=== PATIENT | male | born 1945 | race Caucasian/White ===

== ENCOUNTER 2020-09-07 08:12 | Emergency (ER) | payer MEDICARE, OTHER, SELFPAY ==
[2020-09-07 08:18] VITALS: BP 157/123; PULSE 91; RESP 16; TEMP 36.7; O2SAT 97; BMI 24.3
--- NOTE | 2020-09-07 08:20 | XR_ITS ---
WS: [id number] Portable AP upright chest, 09/07/2020 Clinical Data: dyspnea/cough Comparison: Portable chest, 09/30/2017. Findings: There is elevation of the right diaphragm with small surgical cristi above the lateral asp ect of the right diaphragm. The left lung is fully expanded. There are calcified granulomas in both h dixie. Diaphragms are flattened. The heart is normal. The aortic arch and descending aorta are tortuous . No nodules, masses or effusions are seen. No pneumonia or pneumothorax is present. Monitor leads ar e on the chest wall. XR/XR chest 1V portable [id number] Impression: 1. Old granulomatous disease. 2. Hyperinflation. 3. Elevation of right diaphragm with postoperative changes which remain the sandra e. 4. Atherosclerosis.
[2020-09-07 08:22] VITALS: BP 171/122; PULSE 84; RESP 18; O2SAT 98
[2020-09-07 08:28] VITALS: BP 186/112; PULSE 79; RESP 23; O2SAT 96
--- NOTE | 2020-09-07 08:32 | W.ED.CHESTPA ---
HPI - Chest Pain General: Chief Complaint: Chest Pain Stated Complaint: chest pressure Time Seen by Provider: 09/07/20 08:19 History of Present Illness: HPI narrative: 74-year-old male comes in complaining of chest discomfort that began this morning around 7 AM. He states he did not sleep well all night was uncomfortable but did not have any specific chest heaviness or aching this morning he started having that around 7:00. Pain does not radiate into the neck back or arms or shoulder. He has not had any dysuria urgency or frequency no abdominal pain no nausea vomiting or diarrhea. He denies any reflux. MD complaint: chest heaviness Onset (ago): hour(s) Timing of current episode: episodic and still present Onset: during rest Pain location: left chest Pain radiation: none Severity: moderate Quality: heaviness Relieving factors: nothing Exacerbating factors: nothing Associated symptoms: Deny abdominal pain, diaphoresis, dyspnea, fever(s), leg edema, nausea, palpitations, sense of impending doom, syncope or vomiting Treatment prior to arrival: aspirin (81mg) Review of Systems Const: Denies: fever(s) or diaphoresis ENMT: Denies: throat pain, ear or mastoid pain, nasal discharge or nasal congestion Card: Denies: palpitations or syncope Resp: Denies: dyspnea GI: Denies: abdominal pain, nausea or vomiting : Denies: flank pain, dysuria, urinary frequency or urinary urgency Skin/Breast: Denies: rash or pruritus FORMERLY [facility], 1928–1983 ED PFSH: Medical History (Updated 09/07/20 @ 10:46 by Dandre Rosales DO) HTN (hypertension) Social History (Updated 09/07/20 @ 08:22 by Jamir Lopez RN) Smoking and tobacco status: never smoked Alcohol intake: never Physical Exam Const: COMMON NORMALS: no acute distress GENERAL APPEARANCE: cooperative and comfortable ORIENTATION/CONSCIOUSNESS: Yes awake, Yes oriented to person, Yes oriented to place and Yes oriented to time HENMT: COMMON NORMALS: normocephalic, atraumatic and hearing grossly normal bilaterally HEAD & SCALP: normocephalic and atraumatic Neck/C-Spine: COMMON NORMALS: no JVD Resp: COMMON NORMALS: normal respiratory effort, No retractions, No use of accessory muscles and clear to auscultation bilaterally AUSCULTATION: clear to auscultation bilaterally Cardio: COMMON NORMALS: no JVD, regular rate, regular rhythm and No murmurs present (Cardio) RATE: regular rate RHYTHM: regular rhythm GI: COMMON NORMALS: Soft to palpation and No hepatosplenomegaly present AUSCULTATION: Yes normoactive bowel sounds PALPATION: Yes Soft to palpation, No Tenderness to palpation present (GI), No Guarding due to palpation present (GI) and Yes No hepatosplenomegaly present Extremity: COMMON NORMALS: normal to inspection, capillary refill normal, no clubbing, cyanosis or edema, no calf tenderness and no pedal edema Neuro: SENSORIUM/ORIENTATION: Yes oriented to person, Yes oriented to place and Yes oriented to time Skin: COMMON NORMALS: no rashes or lesions noted GENERAL SKIN EXAM: no rashes or lesions noted Course Vital Signs: Vital signs: Vital Signs Temperature 98.7 F 09/07/20 11:05 Pulse Rate 78 09/07/20 11:05 Respiratory Rate 18 09/07/20 11:05 Blood Pressure 159/83 09/07/20 11:05 Pulse Oximetry 97 09/07/20 11:05 MDM - Chest Pain MDM Narrative: Medical decision making narrative: No further chest discomfort blood pressure improved after hydralazine. Will discharge home on amlodipine and lisinopril continue aspirin daily gave sublingual nitro to use as needed he should stop the losartan and follow-up with his primary care doctor within the next week for recheck on blood pressure. Lab Data: Labs: Lab Results 09/07/20 09/07/20 09/07/20 Range/Units 08:30 08:30 08:30 WBC 5.4 (4.0-10.0) 10^3/ uL RBC 5.15 (4.1-5.3) 10^6/u L Hgb 15.9 (11.7-16.6) g/dL Hct 45.9 (42.0-52.0) % MCV 89.1 (80-94) fL MCH 30.9 (28.0-34.0) pg MCHC 34.6 (30.0-36.0) g/dL RDW 12.1 (12.1-15.1) % Plt Count 175 (130-400) 10^3/c mm MPV 10.1 (7.4-10.4) fL Neut % (Auto) 65.3 % Lymph % (Auto) 19.3 % [place] % (Auto) 10.2 % Eos % (Auto) 3.9 % Baso % (Auto) 0.9 % Neut # (Auto) 3.52 (1.8-7.7) 10^3/u L Lymph # (Auto) 1.0 (0.8-4.8) 10^3/u L [place] # (Auto) 0.6 (0.2-0.9) 10^3/u L Eos # (Auto) 0.2 (0.0-0.8) 10^3/u L Baso # (Auto) 0.1 (0.0-0.1) 10^3/u L Nucleated RBC % (a uto) 0 % Nucleated RBCs # 0.0 /100WBC Sodium 137 (136-145) mmol/L Potassium 3.9 (3.5-5.1) mmol/L Chloride 102 (98-107) mmol/L Carbon Dioxide 26 (22-29) mmol/L Anion Gap 12.9 (5-19) BUN 17 (8-23) mg/dL Creatinine 0.8 (0.7-1.2) mg/dL GFR Calculation Not Reportable Glucose 123 H (65-115) mg/dL Calculated Osmolal ity 287 (285-295) mOsm/k g Calcium 9.9 (8.5-10.5) mg/dL Total Bilirubin 0.8 (0.15-1.2) mg/dL AST 28 (0-40) U/L ALT 18 (0-41) U/L Alkaline Phosphata se 77 (40-130) IU/L Troponin T Baselin e 16 H (0-15) ng/L Troponin T 120 Min [place] (0-15) ng/L Delta Troponin T (0-10) ABS# Total Protein 7.1 (6.6-8.7) g/dL Albumin 4.5 (3.5-5.2) g/dL Globulin 2.6 (1.3-4.6) g/dL Urine Color (Yellow) Urine Appearance (CLEAR) Urine pH (5-7) Ur Specific Gravit y (1.005-1.030) Urine Protein (Negative) Urine Glucose (UA) (Normal) Urine Ketones (Negative) Urine Blood (Negative) Urine Nitrate (Negative) Urine Bilirubin (Negative) Urine Urobilinogen (Negative) mg/dL Ur Leukocyte Patricia ase (Negative) Urine RBC (0-2) /hpf Urine WBC (0-5) /hpf Ur Squamous Epith Cells (0-5) /hpf Amorphous Sediment Urine Bacteria (NONE) /hpf Urine Mucus /hpf 09/07/20 09/07/20 Range/Units 08:56 10:13 WBC (4.0-10.0) 10^3/ uL RBC (4.1-5.3) 10^6/u L Hgb (11.7-16.6) g/dL Hct (42.0-52.0) % MCV (80-94) fL MCH (28.0-34.0) pg MCHC (30.0-36.0) g/dL RDW (12.1-15.1) % Plt Count (130-400) 10^3/c mm MPV (7.4-10.4) fL Neut % (Auto) % Lymph % (Auto) % [place] % (Auto) % Eos % (Auto) % Baso % (Auto) % Neut # (Auto) (1.8-7.7) 10^3/u L Lymph # (Auto) (0.8-4.8) 10^3/u L [place] # (Auto) (0.2-0.9) 10^3/u L Eos # (Auto) (0.0-0.8) 10^3/u L Baso # (Auto) (0.0-0.1) 10^3/u L Nucleated RBC % (a uto) % Nucleated RBCs # /100WBC Sodium (136-145) mmol/L Potassium (3.5-5.1) mmol/L Chloride (98-107) mmol/L Carbon Dioxide (22-29) mmol/L Anion Gap (5-19) BUN (8-23) mg/dL Creatinine (0.7-1.2) mg/dL GFR Calculation Glucose (65-115) mg/dL Calculated Osmolal ity (285-295) mOsm/k g Calcium (8.5-10.5) mg/dL Total Bilirubin (0.15-1.2) mg/dL AST (0-40) U/L ALT (0-41) U/L Alkaline Phosphata se (40-130) IU/L Troponin T Baselin e (0-15) ng/L Troponin T 120 Min [place] 13.57 (0-15) ng/L Delta Troponin T -2.43 L (0-10) ABS# Total Protein (6.6-8.7) g/dL Albumin (3.5-5.2) g/dL Globulin (1.3-4.6) g/dL Urine Color Yellow (Yellow) Urine Appearance Clear (CLEAR) Urine pH 5.0 (5-7) Ur Specific Gravit y 1.020 (1.005-1.030) Urine Protein Neg (Negative) Urine Glucose (UA) Norm (Normal) Urine Ketones Negative (Negative) Urine Blood Trace H (Negative) Urine Nitrate Negative (Negative) Urine Bilirubin Neg (Negative) Urine Urobilinogen Norm (Negative) mg/dL Ur Leukocyte Patricia ase Negative (Negative) Urine RBC 0-4 H (0-2) /hpf Urine WBC None (0-5) /hpf Ur Squamous Epith Cells 0-4 H (0-5) /hpf Amorphous Sediment Not Reportable Urine Bacteria Trace (NONE) /hpf Urine Mucus 1+ /hpf Discharge Plan Discharge Patient Disposition: Home Clinical Impression: Atypical chest pain, HTN (hypertension) Condition: Stable Prescriptions: New amlodipine 5 mg tablet 5 mg PO DAILY Qty: 30 RF: 0 lisinopril 10 mg tablet 10 mg PO DAILY Qty: 30 RF: 0 aspirin 81 mg tablet,delayed release (DR/EC) 81 mg PO DAILY Qty: 30 RF: 0 nitroglycerin 0.4 mg tablet, sublingual 0.4 mg sublingual Q5M PRN (Reason: chest pain) Qty: 30 RF: 0 Discontinued losartan 50 mg tablet 50 mg PO DAILY@08 RF: 0 No Action atorvastatin 40 mg tablet 40 mg PO BEDTIME@2100 RF: 0 pantoprazole 40 mg tablet,delayed release (DR/EC) 40 mg PO DAILY@08 RF: 0 Discharge Orders: Discharge ED (Routine); Ordered 09/07/20 Ordered By: Dandre Rosales Referrals: Gordo Bradley DO [Primary Care Provider] - Discharge Diet: Usual diet Discharge Activity: Limit activity as instructed Patient Instructions: Opioid Safety Activity Restrictions/Additional Instructions: Case management will call with an appointment for a Lexiscan sestamibi stress test. Start on blood pressure medications as above as well as baby aspirin daily. If you have worsening symptoms return. Coding Level of Care Code ED Stroboroma Operator for Ioana Fwd Exam Comprehensive
[2020-09-07 08:42] LABS: Basophils # 0.1 10^3/uL (0.0-0.1); Basophils % 0.9 %; Eosinophils # 0.2 10^3/uL (0.0-0.8); Eosinophils % 3.9 %; Hematocrit 45.9 % (42.0-52.0); Hemoglobin 15.9 g/dL (11.7-16.6); Lymphocytes % 19.3 %; Mean Corpuscular HGB Conc 34.6 g/dL (30.0-36.0); Mean Corpuscular Hemoglobin 30.9 pg (28.0-34.0); Mean Corpuscular Volume 89.1 fL (80-94); Mean Platelet Volume 10.1 fL (7.4-10.4); Monocytes # 0.6 10^3/uL (0.2-0.9); Monocytes % 10.2 %; Neutrophils # 3.52 10^3/uL (1.8-7.7); Neutrophils % 65.3 %; Nucleated Red Blood Cells % 0 %; Platelet Count 175 10^3/cmm (130-400); Red Blood Count 5.15 10^6/uL (4.1-5.3); Red Cell Distribution Width 12.1 % (12.1-15.1); White Blood Count 5.4 10^3/uL (4.0-10.0)
[2020-09-07 09:02] LABS: Alanine Aminotransferase 18 U/L (0-41); Albumin Level 4.5 g/dL (3.5-5.2); Alkaline Phosphatase 77 IU/L (40-130); Anion Gap 12.9 (5-19); Aspartate Amino Transferase 28 U/L (0-40); Blood Urea Nitrogen 17 mg/dL (8-23); Calcium 9.9 mg/dL (8.5-10.5); Carbon Dioxide 26 mmol/L (22-29); Chloride 102 mmol/L (98-107); Globulin 2.6 g/dL (1.3-4.6); Glucose 123 mg/dL (65-115); Osmolality Calculated 287 mOsm/kg (285-295); Potassium 3.9 mmol/L (3.5-5.1); Sodium 137 mmol/L (136-145); Total Bilirubin 0.8 mg/dL (0.15-1.2); Total Protein 7.1 g/dL (6.6-8.7)
[2020-09-07 09:03] LABS: Troponin(5th) Baseline 16 ng/L (0-15)
[2020-09-07 09:04] LABS: Add Urine Culture? No; Add Urine Microscopic? YES; Bacteria Urine TRACE /hpf; Bilirubin Urine Neg (Negative); Blood Urine Trace (Negative); Glucose Urine UA Norm (Normal); Ketones Urine Negative (Negative); Leukocyte Esterase Urine Negative (Negative); Mucus Urine 1+ /hpf; Nitrate Urine Negative (Negative); Protein Urine Neg (Negative); RBC Urine 0-4 /hpf (0-2); Squamous Epithelial Cell Urine 0-4 /hpf (0-5); Urine Appearance Clear (CLEAR); Urine Color Yellow (Yellow); Urobilinogen Urine Norm (Negative)
--- NOTE | 2020-09-07 10:20 | ECG_ITS ---
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 Measurements Intervals Moran Rate: 65 P: 118 HI: 171 QRS: 44 QRSD: 93 T: 99 QT: 421 QTc: 438 Interpretive Statements SINUS RHYTHM POSSIBLE LEFT ATRIAL ENLARGEMENT [-0.1mV P WAVE IN V1/V2] POSSIBLE RIGHT VENTRICULAR CONDUCTION DELAY [RSR (QR) IN V1/V2] POSSIBLE LEFT VENTRICULAR HYPERTROPHY [VOLTAGE CRITERIA PLUS LAE OR QRS WIDENING] Compared to ECG 09/07/2020 08:20:41 Ventricular premature complex(es) no longer present Electronically Signed On 09-07-2020 11:46:46 MANAGED SERVICES CONSULTANT by Olivia Alvarado M.D. [id number]
[2020-09-07 10:36] LABS: Troponin 5 2HR 13.57 ng/L (0-15); Troponin 5 2HR Delta -2.43 ABS# (0-10)
[2020-09-07 10:49] VITALS: BP 183/93; PULSE 66; RESP 18; O2SAT 96
[2020-09-07] MEDS: hyDRALAzine 20 mg/mL INJ 1 mL 10 MG IVP (10:51)
[2020-09-07 11:05] VITALS: BP 159/83; PULSE 78; RESP 18; TEMP 37.1; O2SAT 97
--- NOTE | 2020-09-07 14:20 | ECG_ITS ---
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 Measurements Intervals [place] Rate: 82 P: 57 SD: 189 QRS: 24 QRSD: 90 T: 59 QT: 356 QTc: 418 Interpretive Statements SINUS RHYTHM WITH OCCASIONAL VENTRICULAR PREMATURE COMPLEXES POSSIBLE LEFT ATRIAL ENLARGEMENT [-0.1mV P WAVE IN V1/V2] POSSIBLE LEFT VENTRICULAR HYPERTROPHY [VOLTAGE CRITERIA PLUS LAE OR QRS WIDENING] Compared to ECG 09/30/2017 22:45:18 Ventricular premature complex(es) now present Electronically Signed On 09-07-2020 11:49:23 NAILHEAD PUNCHER by Olivia Alvarado M.D. [id number]
== END 2020-09-07 11:08 | disposition home or self-care (01) ==
PROVIDERS: Emergency Provider Family Medicine; PCP Internal Medicine
DX: R07.9 Chest pain, unspecified (principal); I10 Essential (primary) hypertension; Z79.82 Long term (current) use of aspirin
CPT/HCPCS: 12345; 36415; 71045; 80053; 81001; 83690; 84484; 85025; 87426; 87804; 93005; 96361; 96374; 96375; 99282; 99283; 99284; J0360; J1200; J2405; J7030

== ENCOUNTER 2020-09-07 19:06 | Emergency (ER) | payer MEDICARE, OTHER, SELFPAY ==
[2020-09-07 19:16] VITALS: BP 163/112; PULSE 104; RESP 18; TEMP 36.5; O2SAT 96; BMI 23.6
[2020-09-07 19:56] LABS: Basophils % 0.4 %; Eosinophils % 0.1 %; Hematocrit 44.1 % (42.0-52.0); Hemoglobin 15.7 g/dL (11.7-16.6); Lymphocytes # 0.5 10^3/uL (0.8-4.8); Mean Corpuscular HGB Conc 35.6 g/dL (30.0-36.0); Mean Corpuscular Hemoglobin 31.4 pg (28.0-34.0); Mean Corpuscular Volume 88.2 fL (80-94); Mean Platelet Volume 9.8 fL (7.4-10.4); Monocytes # 0.4 10^3/uL (0.2-0.9); Monocytes % 5.2 %; Neutrophils # 5.78 10^3/uL (1.8-7.7); Nucleated Red Blood Cells % 0 %; Platelet Count 164 10^3/cmm (130-400); Red Cell Distribution Width 12.1 % (12.1-15.1); White Blood Count 6.7 10^3/uL (4.0-10.0)
[2020-09-07] MEDS: ondansetron 2 mg/ML SDV 2 mL 4 MG IVP (20:04)
[2020-09-07] MEDS: diphenhydrAMINE 50 mg/mL SDV 1mL 25 MG IVP (20:04)
[2020-09-07] MEDS: cloNIDine 0.1 mg Tablet 0.2 MG PO (20:05)
[2020-09-07] MEDS: sodium chloride 0.9% 1,000 ML 999 ML IV (20:06)
[2020-09-07 20:13] LABS: Alanine Aminotransferase 20 U/L (0-41); Albumin Level 4.4 g/dL (3.5-5.2); Alkaline Phosphatase 72 IU/L (40-130); Anion Gap 15.8 (5-19); Aspartate Amino Transferase 28 U/L (0-40); Blood Urea Nitrogen 15 mg/dL (8-23); Calcium 9.6 mg/dL (8.5-10.5); Carbon Dioxide 22 mmol/L (22-29); Chloride 101 mmol/L (98-107); Creatinine Clr Calc Pharmacy 81.8698; Globulin 2.7 g/dL (1.3-4.6); Glucose 135 mg/dL (65-115); Lipase 24 U/L (13-60); Osmolality Calculated 283 mOsm/kg (285-295); Potassium 3.8 mmol/L (3.5-5.1); Sodium 135 mmol/L (136-145); Total Bilirubin 0.9 mg/dL (0.15-1.2); Total Protein 7.1 g/dL (6.6-8.7)
[2020-09-07 20:15] LABS: Troponin(5th) Baseline 12 ng/L (0-15)
--- NOTE | 2020-09-07 20:15 | ED_ITS ---
HPI - Nausea/Vomiting/Diarrhea General: Chief complaint: Nausea/Vomiting/Diarrhea Stated complaint: n/v/hIGH BP Time Seen by Provider: 09/07/20 19:20 History of Present Illness: HPI Narrative: The patient is a 74-year-old male who came to the ER this morning complaining of chest pain. He was given blood pressure medicines and discharged home. He says when he got home he did not have much chest pain but continued to have a headache and felt nauseous and vo mited at home. 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 He still complains of elevated blood pressure and comes to the ER at 163/112 with a pulse rate of 104. He vomited just prior to coming in he says he ate cream of wheat and it was likely those contents. He continues to have heada jossy and feels generally weak. MD elicited complaint: nausea and vomiting Description of vomiting: food contents Associated nausea: Yes Location of pain: None Pain consistency: intermittent Severity: moderate Exacerbating factors: eating and vomiting Relieving factors: none Associated symtoms: Reports fatigue, headache(s), anorexia, malaise, nausea and weakness; Denies anxiety, change in vision, chest pain, dizziness, fevers/chills, myalgias or palpitations Review of Systems General: Reports: 10 or more systems reviewed and unremarkable except in HPI and below Const: Reports: fatigue and malaise Eyes: Denies: change in vision, blurry vision or eye redness ENMT: Denies: throat pain, swelling of lips/tongue, ear or mastoid pain or nasal congestion Card: Denies: chest pain, palpitations, irregular heart rhythm, edema, dyspnea on exertion or orthopnea Resp: Denies: dyspnea, productive cough or non-productive cough GI: Reports: nausea and vomiting; Denies: abdominal pain, diarrhea or GI cramping : Denies: flank pain, urinary frequency or urinary urgency Musc: Denies: neck pain, back pain, extremity pain, joint pain, joint redness, limited range of motion or muscle weakness Skin/Breast: Denies: rash, pruritus, erythema, skin pain or skin tenderness Neuro: Reports: headache(s); Denies: numbness in extremities, weakness in extremities, sensory changes, difficulty walking, dizziness, confusion or Slurred speech present Psych: Denies: anxiety or depression Endo: Denies: polyuria All/Imm: Denies: urticaria, throat swelling or tongue swelling PFSH ED PFSH: Medical History (Updated 09/07/20 @ 21:34 by Srini Jordan MD) HTN (hypertension) Social History (Updated 09/07/20 @ 08:22 by Jamir Lopez RN) Smoking and tobacco status: never smoked Alcohol intake: never Physical Exam Const: COMMON NORMALS: no acute distress, average body habitus, patient oriented x3, no limitations, healthy appearing, alert and well nourished GENERAL APPEARANCE: cooperative, comfortable, well kempt and well developed ORIENTATION/CONSCIOUSNESS: Yes awake, Yes oriented to person, Yes oriented to place and Yes oriented to time HENMT: COMMON NORMALS: normocephalic, external ears normal and Normal external nose present HEAD & SCALP: normal to inspection and normocephalic NOSE: Normal external nose present EXTERNAL EAR: Yes external ears normal MOUTH: Normal oral and palatal mucosa present THROAT: posterior oropharynx normal Eye: COMMON NORMALS: Equal, round and reactive pupils present and EOMs intact bilaterally GENERAL EYE: appearance normal, both eyes and all related structures PUPIL: Yes Equal, round and reactive pupils present Neck/C-Spine: COMMON NORMALS: full ROM, no lymphadenopathy, no meningeal signs and no JVD GENERAL: Yes normal visual inspection Lymph: LYMPHATIC: no lymphadenopathy noted Chest: COMMONS NORMALS: normal inspection of the chest and normal palpation of entire chest wall Resp: COMMON NORMALS: normal respiratory effort, No retractions, No use of accessory muscles, clear to auscultation bilaterally and percussion normal EFFORT & INSPECTION: Yes able to speak in complete sentences AUSCULTATION: clear to auscultation bilaterally PERCUSSION: percussion normal Cardio: COMMON NORMALS: no JVD, regular rate, regular rhythm, S1 normal heart sound present, S2 normal heart sound present and Peripheral pulses 2+ throughout RATE: regular rate RHYTHM: regular rhythm HEART SOUNDS: S1 normal heart sound present and S2 normal heart sound present PERIPHERAL PULSES: Peripheral pulses 2+ throughout GI: COMMON NORMALS: Normal to inspection, nondistended, normoactive bowel sounds present, Soft to palpation, non-tender and no masses INSPECTION: Yes normal to inspection PALPATION: Yes Soft to palpation : COMMON NORMALS: Yes no CVA tenderness BLADDER/KIDNEY EXAM: Yes no CVA tenderness Back/Pelvis: COMMON NORMALS: no CVA tenderness, thoracic and lumbar spine normal to inspection, no thoracic nor lumbar tenderness and thoraco-lumbar ROM normal Extremity: COMMON NORMALS: normal to inspection, full ROM, capillary refill normal, no joint enlargement and no pedal edema GENERAL: Yes normal exam except as noted Neuro: COMMON NORMALS: patient oriented x3, CN's II-XII intact bilaterally, moves all extremities, no focal motor deficits, no sensory deficits noted and gait normal SENSORIUM/ORIENTATION: Yes alert, Yes oriented to person, Yes oriented to place and Yes oriented to time MENINGEAL SIGNS: Yes no meningeal signs Psych: COMMON NORMALS: mental status grossly normal, Normal thought process present, cooperative, normal affect and speech normal APPEARANCE: Yes well kempt ATTITUDE: Yes calm SPEECH: Yes normal speech THOUGHT PROCESS: Normal thought process present Skin: COMMON NORMALS: no rashes or lesions noted GENERAL SKIN EXAM: no rashes or lesions noted Course Vital Signs: Vital signs: Vital Signs Temperature 97.7 F 09/07/20 19:16 Pulse Rate 104 H 09/07/20 19:16 Respiratory Rate 18 09/07/20 19:16 Blood Pressure 163/112 09/07/20 19:16 Pulse Oximetry 96 09/07/20 19:16 MDM - Nausea/Vomiting/Diarrhea MDM Narrative: Medical decision making narrative: The patient came to the ER feeling weak, nauseous and vomiting at home, tachycardic, and dehydrated. He was given IV fluids, clonidine and after the fluids he felt much better and his pressure normalized. He is now requesting discharge to go sleep at home. Likely gastroenteritis. Discharged with Zofran prescription Lab Data: Labs: Lab Results 09/07/20 09/07/20 09/07/20 Range/Units 19:35 19:35 19:35 WBC 6.7 (4.0-10.0) 10^3/ uL RBC 5.00 (4.1-5.3) 10^6/u L Hgb 15.7 (11.7-16.6) g/dL Hct 44.1 (42.0-52.0) % MCV 88.2 (80-94) fL MCH 31.4 (28.0-34.0) pg MCHC 35.6 (30.0-36.0) g/dL RDW 12.1 (12.1-15.1) % Plt Count 164 (130-400) 10^3/c mm MPV 9.8 (7.4-10.4) fL Neut % (Auto) 86.0 % Lymph % (Auto) 8.0 % [place] % (Auto) 5.2 % Eos % (Auto) 0.1 % Baso % (Auto) 0.4 % Neut # (Auto) 5.78 (1.8-7.7) 10^3/u L Lymph # (Auto) 0.5 L (0.8-4.8) 10^3/u L [place] # (Auto) 0.4 (0.2-0.9) 10^3/u L Eos # (Auto) 0.0 (0.0-0.8) 10^3/u L Baso # (Auto) 0.0 (0.0-0.1) 10^3/u L Nucleated RBC % (a uto) 0 % Nucleated RBCs # 0.0 /100WBC Sodium 135 L (136-145) mmol/L Potassium 3.8 (3.5-5.1) mmol/L Chloride 101 (98-107) mmol/L Carbon Dioxide 22 (22-29) mmol/L Anion Gap 15.8 (5-19) BUN 15 (8-23) mg/dL Creatinine 0.7 (0.7-1.2) mg/dL GFR Calculation Not Reportable Glucose 135 H (65-115) mg/dL Calculated Osmolal ity 283 L (285-295) mOsm/k g Calcium 9.6 (8.5-10.5) mg/dL Total Bilirubin 0.9 (0.15-1.2) mg/dL AST 28 (0-40) U/L ALT 20 (0-41) U/L Alkaline Phosphata se 72 (40-130) IU/L Troponin T Baselin e 12 (0-15) ng/L Total Protein 7.1 (6.6-8.7) g/dL Albumin 4.4 (3.5-5.2) g/dL Globulin 2.7 (1.3-4.6) g/dL Lipase 24 (13-60) U/L Influenza Type A A g (Negative) Influenza Type B A g (Negative) SARS-CoV-2 Ag (Rap id) (Negative) 09/07/20 09/07/20 Range/Units 20:15 20:20 WBC (4.0-10.0) 10^3/ uL RBC (4.1-5.3) 10^6/u L Hgb (11.7-16.6) g/dL Hct (42.0-52.0) % MCV (80-94) fL MCH (28.0-34.0) pg MCHC (30.0-36.0) g/dL RDW (12.1-15.1) % Plt Count (130-400) 10^3/c mm MPV (7.4-10.4) fL Neut % (Auto) % Lymph % (Auto) % [place] % (Auto) % Eos % (Auto) % Baso % (Auto) % Neut # (Auto) (1.8-7.7) 10^3/u L Lymph # (Auto) (0.8-4.8) 10^3/u L [place] # (Auto) (0.2-0.9) 10^3/u L Eos # (Auto) (0.0-0.8) 10^3/u L Baso # (Auto) (0.0-0.1) 10^3/u L Nucleated RBC % (a uto) % Nucleated RBCs # /100WBC Sodium (136-145) mmol/L Potassium (3.5-5.1) mmol/L Chloride (98-107) mmol/L Carbon Dioxide (22-29) mmol/L Anion Gap (5-19) BUN (8-23) mg/dL Creatinine (0.7-1.2) mg/dL GFR Calculation Glucose (65-115) mg/dL Calculated Osmolal ity (285-295) mOsm/k g Calcium (8.5-10.5) mg/dL Total Bilirubin (0.15-1.2) mg/dL AST (0-40) U/L ALT (0-41) U/L Alkaline Phosphata se (40-130) IU/L Troponin T Baselin e (0-15) ng/L Total Protein (6.6-8.7) g/dL Albumin (3.5-5.2) g/dL Globulin (1.3-4.6) g/dL Lipase (13-60) U/L Influenza Type A A g Negative (Negative) Influenza Type B A g Negative (Negative) SARS-CoV-2 Ag (Rap id) Negative (Negative) Discharge Plan Discharge Patient Disposition: Home Clinical Impression: Gastroenteritis Condition: Stable Prescriptions: New ondansetron 4 mg tablet,disintegrating 4 mg PO Q8H 4 Days Qty: 12 RF: 0 No Action amlodipine 5 mg tablet 5 mg PO DAILY Qty: 30 RF: 0 lisinopril 10 mg tablet 10 mg PO DAILY Qty: 30 RF: 0 aspirin 81 mg tablet,delayed release (DR/EC) 81 mg PO DAILY Qty: 30 RF: 0 nitroglycerin 0.4 mg tablet, sublingual 0.4 mg sublingual Q5M PRN (Reason: chest pain) Qty: 30 RF: 0 atorvastatin 40 mg tablet 40 mg PO BEDTIME@2100 RF: 0 pantoprazole 40 mg tablet,delayed release (DR/EC) 40 mg PO DAILY@08 RF: 0 Discharge Orders: Discharge ED (Routine); Ordered 09/07/20 Ordered By: Srini Jordan Referrals: Gordo Bradley DO [Primary Care Provider] - Discharge Diet: Advance as tolerated Discharge Activity: Resume usual activity Patient Instructions: Gastroenteritis (ED), Opioid Safety Activity Restrictions/Additional Instructions: You likely have a stomach bug. Please try to drink lots of fluids and you should get better in a day or 2. Return to the ER with worsening symptoms. Otherwise follow-up with your primary care physician in a couple days to monitor improvement of your symptoms. I have given you a prescription for Zofran which will dissolve in your mouth to help with nausea if you continue to feel nauseated at home. Let it dissolve in your mouth and then as the nausea resolves start to drink water Coding Level of Care Code ED Paper Cup Machine Operator for Ioana Fwd Exam Comprehensive
[2020-09-07 20:59] LABS: SARS Covid-2 Antigen Negative (Negative)
[2020-09-07 20:59] LABS: Influenza A by IFA Negative (Negative); Influenza B by IFA Negative (Negative)
[2020-09-07 21:50] VITALS: BP 127/94; PULSE 85; RESP 21; O2SAT 97
== END 2020-09-07 21:50 | disposition home or self-care (01) ==
PROVIDERS: Emergency Provider Family Medicine; PCP Internal Medicine
DX: K52.9 Noninfective gastroenteritis and colitis, unspecified (principal); Z79.1 Long term (current) use of non-steroidal anti-inflammatories (NSAID); I10 Essential (primary) hypertension
CPT/HCPCS: 12345; 80053; 83690; 84484; 85025; 87426; 87804; 96361; 96374; 96375; 99282; 99284; J1200; J2405; J7030

== ENCOUNTER 2021-05-25 09:30 | Outpatient (RCR) | payer MEDICARE, OTHER, SELFPAY | END 2021-05-28 23:59 | disposition home or self-care (01) | LOC: SPT 09:30 | PROVIDERS: PCP Internal Medicine; Visit Provider Orthopaedic Surgery | DX: Z47.89 Encounter for other orthopedic aftercare (principal) | CPT/HCPCS: 97161 ==

== ENCOUNTER 2022-06-11 12:49 | Emergency (ER) | payer MEDICARE, OTHER, SELFPAY ==
[2022-06-11] VITALS (9 sets, daily range): BP systolic 94–172; BP diastolic 58–94; PULSE 52–79; RESP 14–16; TEMP 36.8; O2SAT 94–96; BMI 23.6
--- NOTE | 2022-06-11 13:01 | CT_ITS ---
WS: [id number] CT HEAD TECHNIQUE: Noncontrast CT of the head obtained from the skullbase to the vertex. CLINICAL INFORMATION: syncope COMPARISON: None. DLP: 1035.[address] scans at [facility] use at least one of these dose optimization techniques: automated e xposure control; mA and/or kV adjustment per patient size (includes targeted exams where dose is matc hed to clinical indication); or iterative reconstruction. FINDINGS: No evidence of intracranial hemorrhage or mass effect. Ventricular system and basal cisterns are roper nt. Mild small vessel changes with moderate parenchymal volume loss. No extra-axial fluid collections . No evidence of mass or mass effect. Vascular calcification. Mild mucosal thickening in the ethmoid air cells..Normal visualized soft tissues. CT/CT head wo con* [id number] IMPRESSION: 1. No evidence of intracranial hemorrhage or mass effect. 2. Mild small vessel changes. Moderate parenchymal volume loss. 3. No acute intracranial findings.
--- NOTE | 2022-06-11 13:01 | XR_ITS ---
WS: [id number] Exam: XR chest 1V portable [id number] Date/Time of Exam: 06/11/2022 1:38 PM Reason For Exam: syncope Comparison 09/07/2020. The lungs are fully expanded and clear. Signs of probable partial right pneumonectomy. Chronic elevat ion of the right diaphragm. Heart size is normal. The mediastinal silhouette is unremarkable. Calcifi ed perihilar and mediastinal granulomas noted. Surgical sutures in the right lower lung zone. Mild de xtroscoliosis of the T-spine. Anchoring screw in the right humeral head. XR/XR chest 1V portable [id number] IMPRESSION: 1. No acute cardiopulmonary finding. 2. Postoperative changes in the right base which may indicate partial right pne umonectomy. Additional chronic pulmonary changes as noted above.
--- NOTE | 2022-06-11 13:18 | ECG_ITS ---
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 Measurements Intervals [place] Rate: 61 P: 64 [place]: 183 QRS: 53 QRSD: 89 T: 65 QT: 434 QTc: 437 Interpretive Statements SINUS RHYTHM WITH FREQUENT SUPRAVENTRICULAR PREMATURE COMPLEXES MODERATE VOLTAGE CRITERIA FOR LVH, CONSIDER NORMAL VARIANT [MEETS CRITERIA IN ONE OF: R(aVL), S(V1), R(V5), R(V5/V6)+S(V1)] ABNORMAL RHYTHM ECG Compared to ECG 09/07/2020 10:30:28 No significant changes Electronically Signed On 06-12-2022 7:08:35 SPECIAL DAY CLASS TEACHER by Michael Johns M.D. [id number]
[2022-06-11 13:48] LABS: Basophils % 0.2 %; Eosinophils # 0.1 10^3/uL (0.0-0.8); Eosinophils % 0.6 %; Hematocrit 43.2 % (42.0-52.0); Hemoglobin 14.7 g/dL (11.7-16.6); Lymphocytes # 1.4 10^3/uL (0.8-4.8); Lymphocytes % 11.2 %; Mean Corpuscular Hemoglobin 31.7 pg (28.0-34.0); Mean Corpuscular Volume 93.3 fl (80-94); Mean Platelet Volume 9.8 fL (7.4-10.4); Monocytes % 7.9 %; Neutrophils % 79.9 %; Nucleated Red Blood Cells % 0 %; Platelet Count 162 10^3/cmm (130-400); Red Blood Count 4.63 10^6/uL (4.1-5.3); Red Cell Distribution Width 12.1 % (12.1-15.1); White Blood Count 12.2 10^3/uL (4.0-10.0)
[2022-06-11 14:11] LABS: Troponin(5th) Baseline 16 ng/L (0-15)
[2022-06-11 14:21] LABS: Alanine Aminotransferase 15 U/L (0-41); Albumin Level 4.2 g/dL (3.5-5.2); Alkaline Phosphatase 77 U/L (40-130); Anion Gap 13.7 (5-19); Aspartate Amino Transferase 23 U/L (0-40); Blood Urea Nitrogen 17 mg/dL (8-23); Calcium 9.8 mg/dL (8.5-10.5); Carbon Dioxide 28 mmol/L (22-29); Chloride 100 mmol/L (98-107); Glucose 124 mg/dL (65-115); Osmolality Calculated 289 mOsm/kg (285-295); Potassium 3.7 mmol/L (3.5-5.1); Sodium 138 mmol/L (136-145); Total Bilirubin 0.9 mg/dL (0.15-1.2); Total Protein 7.2 g/dL (6.6-8.7)
--- NOTE | 2022-06-11 14:27 | W.ED.SYNCOPE ---
HPI - Syncope General: Chief Complaint: Syncope Stated Complaint: Hypo tention Time Seen by Provider: 06/11/22 13:35 Source: patient Mode of arrival: ambulatory History of Present Illness: 76-year-old male presents to the emergency room after a syncopal episode at home. He been doing usual activities around the home and this morning without any difficulty or signs or symptoms of any stress. No chest pain or lightheadedness or dizziness he sat down at bar in their kitchen his thought she looked like he was going to pass out or fall asleep she asked him how he was feeling and he said he did not feel well that he was dizzy and lightheaded shortly after this he passed out completely he does remember what happened. He remembers talking to his just before the episode but after that he has a little gap there was no seizure-like activity. He is not previously had episodes like this. He has no history of stroke or heart disease. He has no history of seizures. MD complaint: loss of consciousness, felt faint and collapsed Onset (ago): minute(s) Prodromal symptoms: none Witnessed: Yes - by Bystander Context: at rest Injuries sustained associated with event: none Associated symptoms: Deny abdominal pain, chest pain, fever(s), headache(s), lightheadedness, nausea, short of breath, vertigo or weakness Treatments prior to arrival: none Review of Systems Const: Denies: fever(s), chills, fatigue or malaise ENMT: Denies: throat pain, ear or mastoid pain, nasal discharge or nasal congestion Card: Denies: chest pain or lightheadedness Resp: Denies: dyspnea, productive cough or non-productive cough GI: Denies: abdominal pain or nausea : Denies: flank pain, dysuria, urinary frequency or urinary urgency Skin/Breast: Denies: rash or pruritus Neuro: Denies: headache(s) or vertigo PFSH ED PFSH: Medical History HTN (hypertension) Social History Smoking and tobacco status: never smoked Alcohol intake: never Physical Exam Const: COMMON NORMALS: no acute distress GENERAL APPEARANCE: cooperative and comfortable ORIENTATION/CONSCIOUSNESS: Yes awake, Yes oriented to person, Yes oriented to place and Yes oriented to time HENMT: COMMON NORMALS: normocephalic, atraumatic, hearing grossly normal bilaterally, external ears normal, EAC's normal, TM's normal bilaterally, Normal nasal mucous membranes and turbinates present, moist oral mucous membranes and oropharynx normal HEAD & SCALP: normocephalic and atraumatic NOSE: Normal nasal mucous membranes and turbinates present EXTERNAL EAR: Yes external ears normal EXTERNAL AUDITORY CANAL: EAC's normal TYMPANIC MEMBRANE: TM's normal bilaterally Eye: COMMON NORMALS: Equal, round and reactive pupils present, EOMs intact bilaterally, conjunctivae normal and no scleral icterus CONJUNCTIVA: Yes conjunctivae normal PUPIL: Yes Equal, round and reactive pupils present Neck/C-Spine: COMMON NORMALS: full ROM, no lymphadenopathy, supple and no JVD Lymph: LYMPHATIC: no lymphadenopathy noted and no lymphedema noted Resp: COMMON NORMALS: normal respiratory effort, No retractions, No use of accessory muscles and clear to auscultation bilaterally AUSCULTATION: clear to auscultation bilaterally Cardio: COMMON NORMALS: no JVD, regular rate, regular rhythm and No murmurs present (Cardio) RATE: regular rate RHYTHM: regular rhythm GI: COMMON NORMALS: Soft to palpation and No hepatosplenomegaly present AUSCULTATION: Yes normoactive bowel sounds PALPATION: Yes Soft to palpation, No Tenderness to palpation present (GI), No Guarding due to palpation present (GI) and Yes No hepatosplenomegaly present Extremity: COMMON NORMALS: normal to inspection, capillary refill normal, no clubbing, cyanosis or edema, no calf tenderness and no pedal edema Neuro: SENSORIUM/ORIENTATION: Yes oriented to person, Yes oriented to place and Yes oriented to time Skin: COMMON NORMALS: no rashes or lesions noted GENERAL SKIN EXAM: no rashes or lesions noted Course Vital Signs: Vital signs: Vital Signs Temperature 98.3 F 06/11/22 12:53 Pulse Rate 67 06/11/22 17:15 Respiratory Rate 14 06/11/22 13:38 Blood Pressure 172/89 06/11/22 17:15 Pulse Oximetry 94 06/11/22 17:15 Oxygen Delivery Me thod 06/11/22 17:15 MDM - Syncope Medical Decision Making Vasovagal symptoms. Suspect patient may have had his blood pressure decreased precipitating his symptoms. We will decrease his losartan to 25 have him follow-up as an outpatient with his primary care doctor labs imaging and EKG reviewed no acute findings EKGs did not show acute changes. Medical Records I reviewed the patient's medical records. Lab Data I reviewed the patient's lab results. 06/11/22 13:41 06/11/22 13:41 Radiology Impressions Chest X-Ray 06/11/22 13:01 IMPRESSION: 1. No acute cardiopulmonary finding. 2. Postoperative changes in the right base which may indicate partial right pneumonectomy. Additional chronic pulmonary changes as noted above. Head CT 06/11/22 13:01 IMPRESSION: 1. No evidence of intracranial hemorrhage or mass effect. 2. Mild small vessel changes. Moderate parenchymal volume loss. 3. No acute intracranial findings. Laboratory Results WBC 12.2 10^3/uL (4.0-10.0) H 06/11/22 13:41 RBC 4.63 10^6/uL (4.1-5.3) 06/11/22 13:41 Hgb 14.7 g/dL (11.7-16.6) 06/11/22 13:41 Hct 43.2 % (42.0-52.0) 06/11/22 13:41 MCV 93.3 fl (80-94) 06/11/22 13:41 MCH 31.7 pg (28.0-34.0) 06/11/22 13:41 MCHC 34.0 g/dL (30.0-36.0) 06/11/22 13:41 RDW 12.1 % (12.1-15.1) 06/11/22 13:41 Plt Count 162 10^3/cmm (130-400) 06/11/22 13:41 MPV 9.8 fL (7.4-10.4) 06/11/22 13:41 Neut % (Auto) 79.9 % 06/11/22 13:41 Lymph % (Auto) 11.2 % 06/11/22 13:41 [place] % (Auto) 7.9 % 06/11/22 13:41 Eos % (Auto) 0.6 % 06/11/22 13:41 Baso % (Auto) 0.2 % 06/11/22 13:41 Neut # (Auto) 9.70 10^3/uL (1.8-7.7) H 06/11/22 13:41 Lymph # (Auto) 1.4 10^3/uL (0.8-4.8) 06/11/22 13:41 [place] # (Auto) 1.0 10^3/uL (0.2-0.9) H 06/11/22 13:41 Eos # (Auto) 0.1 10^3/uL (0.0-0.8) 06/11/22 13:41 Baso # (Auto) 0.0 10^3/uL (0.0-0.1) 06/11/22 13:41 Nucleated RBC % (auto) 0 % 06/11/22 13:41 Nucleated RBCs # 0.0 /100WBC 06/11/22 13:41 Sodium 138 mmol/L (136-145) 06/11/22 13:41 Potassium 3.7 mmol/L (3.5-5.1) 06/11/22 13:41 Chloride 100 mmol/L (98-107) 06/11/22 13:41 Carbon Dioxide 28 mmol/L (22-29) 06/11/22 13:41 Anion Gap 13.7 (5-19) 06/11/22 13:41 BUN 17 mg/dL (8-23) 06/11/22 13:41 Creatinine 0.9 mg/dL (0.7-1.2) 06/11/22 13:41 GFR Calculation Not Reportable 06/11/22 13:41 Glucose 124 mg/dL (65-115) H 06/11/22 13:41 Calculated Osmolality 289 mOsm/kg (285-295) 06/11/22 13:41 Calcium 9.8 mg/dL (8.5-10.5) 06/11/22 13:41 Magnesium 2.0 mg/dL (1.7-2.3) 06/11/22 13:41 Total Bilirubin 0.9 mg/dL (0.15-1.2) 06/11/22 13:41 AST 23 U/L (0-40) 06/11/22 13:41 ALT 15 U/L (0-41) 06/11/22 13:41 Alkaline Phosphatase 77 U/L (40-130) 06/11/22 13:41 Troponin T Baseline 16 ng/L (0-15) H 06/11/22 13:41 Troponin T 120 Minute 15.68 ng/L (0-15) H 06/11/22 15:52 Delta Troponin T -0.32 ABS# (0-10) L 06/11/22 15:52 Total Protein 7.2 g/dL (6.6-8.7) 06/11/22 13:41 Albumin 4.2 g/dL (3.5-5.2) 06/11/22 13:41 Globulin 3.0 g/dL (1.3-4.6) 06/11/22 13:41 TSH 1.10 uIU/mL (0.27-4.20) 06/11/22 13:41 Urine Color Dark yellow (Yellow) 06/11/22 16:15 Urine Appearance Clear (CLEAR) 06/11/22 16:15 Urine pH 5 (5-7) 06/11/22 16:15 Ur Specific [place] 1.020 (1.005-1.030) 06/11/22 16:15 Urine Protein Trace (Negative) 06/11/22 16:15 Urine Glucose (UA) Norm (Normal) 06/11/22 16:15 Urine Ketones Negative (Negative) 06/11/22 16:15 Urine Blood Neg (Negative) 06/11/22 16:15 Urine Nitrate Negative (Negative) 06/11/22 16:15 Urine Bilirubin 1+ (Negative) H 06/11/22 16:15 Urine Urobilinogen Norm mg/dL (Negative) 06/11/22 16:15 Ur Leukocyte Esterase Negative (Negative) 06/11/22 16:15 Urine RBC None /hpf (0-2) 06/11/22 16:15 Urine WBC 0-4 /hpf (0-5) H 06/11/22 16:15 Ur Squamous Epith Cells None /hpf (0-5) 06/11/22 16:15 Amorphous Sediment Not Reportable 06/11/22 16:15 Urine Bacteria Trace /hpf (NONE) 06/11/22 16:15 Urine Mucus 2+ /hpf 06/11/22 16:15 Discharge Plan Discharge Patient Disposition: Home Clinical Impression: HTN (hypertension), Vasovagal syncope Condition: Stable Prescriptions: Changed losartan 50 mg Tablet 25 mg PO DAILY Qty: 15 0RF No Action nitroglycerin 0.4 mg tablet, sublingual 0.4 mg sublingual Q5M PRN (Reason: chest pain) Qty: 30 0RF Rx Instructions: do not exceed 3 doses per episode atorvastatin 40 mg tablet 40 mg PO BEDTIME@2100 pantoprazole 40 mg tablet,delayed release (DR/EC) 40 mg PO DAILY@08 paroxetine HCl 10 mg Tablet 10 mg PO DAILY albuterol sulfate 90 mcg/actuation Hfa Aerosol Inhaler 1 inh INHALATION QID PRN (Reason: Shortness Of Breath) Discharge Orders: Discharge ED (Routine); Ordered 06/11/22 Ordered By: Dandre Rosales Referrals: Gordo Bradley DO [Primary Care Provider] - Discharge Diet: Usual diet Discharge Activity: Resume usual activity Patient Instructions: Opioid Safety, Pain Management Activity Restrictions/Additional Instructions: Decrease losartan to half a tablet daily. Follow-up with Dr. Bradley within the next 7 to 10 days. Case management make arrangements for you to have a outpatient Lexiscan sestamibi stress test and an echocardiogram done. Coding Level of Care Code ED Microbiology Technician for Chg Fwd Exam Comprehensive
--- NOTE | 2022-06-11 15:02 | ECG_ITS ---
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
[2022-06-11 16:31] LABS: Troponin 5 2HR 15.68 ng/L (0-15)
[2022-06-11 16:33] LABS: Troponin 5 2HR Delta -0.32 ABS# (0-10)
[2022-06-11 18:05] LABS: Add Urine Culture? No; Add Urine Microscopic? YES; Bacteria Urine TRACE /hpf; Bilirubin Urine 1+ (Negative); Blood Urine Neg (Negative); Glucose Urine UA Norm (Normal); Ketones Urine Negative (Negative); Leukocyte Esterase Urine Negative (Negative); Mucus Urine 2+ /hpf; Nitrate Urine Negative (Negative); Protein Urine Trace (Negative); Urine Appearance Clear (CLEAR); Urine Color Dark Yellow (Yellow); Urobilinogen Urine Norm (Negative); WBC Urine 0-4 /hpf (0-5); pH Urine 5 (5-7)
--- NOTE | 2022-06-12 11:28 | PC.SOCIAL ---
Addendum entered by Nakita Horner 07/18/22 13:15: This was cancelled Original Note: Lexwendy Pino, Echo Orders sent to centralized scheduling for outpatient lexiscan and echo.
== END 2022-06-11 17:32 | disposition home or self-care (01) ==
PROVIDERS: Emergency Medicine; Emergency Provider Family Medicine; PCP Internal Medicine
DX: I10 Essential (primary) hypertension (principal); R55 Syncope and collapse
CPT/HCPCS: 70450; 71045; 80053; 81001; 83735; 84443; 84484; 85025; 93005; 99285

== ENCOUNTER 2022-07-24 10:29 | Emergency (ER) | payer MEDICARE, OTHER, SELFPAY ==
[2022-07-24] VITALS (16 sets, daily range): BP systolic 136–161; BP diastolic 95–123; PULSE 85–111; RESP 19; TEMP 36.9–38.8; O2SAT 92–99; BMI 24.3
--- NOTE | 2022-07-24 13:04 | XR_ITS ---
WS: [id number] Portable AP upright chest, 07/24/2022 Clinical Data: dyspnea/cough Comparison: Portable chest, 06/11/2022 Findings: No nodules, masses or effusions are seen. The heart is normal. The pulmonary vascularity is not increased. No pneumonia or pneumothorax is seen. There is elevation of the right diaphragm with sutures overlying right lower lobe. There is blunting of both costophrenic angles which may be from p leural reaction. There are calcified granulomas consistent with old granulomatous disease. There is a dextroscoliosis of the thoracic spine. Monitor leads are on the chest wall. There is an orthopedic a nchor in the right humeral head. XR/XR chest 1V portable [id number] Impression: Old granulomatous disease
[2022-07-24 13:21] LABS: Basophils % 0.5 %; Eosinophils % 0.3 %; Hematocrit 44.6 % (42.0-52.0); Hemoglobin 15.1 g/dL (11.7-16.6); Lymphocytes # 0.5 10^3/uL (0.8-4.8); Lymphocytes % 7.8 %; Mean Corpuscular HGB Conc 33.9 g/dL (30.0-36.0); Mean Corpuscular Hemoglobin 32.1 pg (28.0-34.0); Mean Corpuscular Volume 94.7 fl (80-94); Mean Platelet Volume 10.5 fL (7.4-10.4); Monocytes # 0.7 10^3/uL (0.2-0.9); Monocytes % 10.7 %; Neutrophils # 5.18 10^3/uL (1.8-7.7); Neutrophils % 80.4 %; Nucleated Red Blood Cells % 0 %; Platelet Count 146 10^3/cmm (130-400); Red Blood Count 4.71 10^6/uL (4.1-5.3); Red Cell Distribution Width 12.5 % (12.1-15.1); White Blood Count 6.4 10^3/uL (4.0-10.0)
[2022-07-24 13:24] LABS: Add Urine Microscopic? NO; Charge for UA Resulting for Rev
[2022-07-24 13:28] LABS: Bilirubin Urine Neg (Negative); Blood Urine Neg (Negative); Glucose Urine UA Norm (Normal); Ketones Urine 1+ (Negative); Leukocyte Esterase Urine Negative (Negative); Nitrate Urine Negative (Negative); Protein Urine Neg (Negative); Specific Gravity, Urine 1.025 (1.005-1.030); Urine Appearance Clear (CLEAR); Urine Color Yellow (Yellow); Urobilinogen Urine Norm (Negative); pH Urine 6 (5-7)
--- NOTE | 2022-07-24 13:28 | W.ED.DIZZY ---
HPI - Dizziness General: Chief Complaint: Dizziness Stated Complaint: Low o2 in 80s from [facility] Time Seen by Provider: 07/24/22 13:03 Source: patient Mode of arrival: ambulatory Limitations: no limitations History of Present Illness: HPI Narrative: 76-year-old male presents emergency room with his transient lightheadedness dizziness this morning he has a history of sarcoidosis [facility] where he told his were in the 80s and he was referred here on arrival here his O2 sats been 90 to 95% on room air the entire time. He has a history of sarcoidosis is not really been a significant problem for him most recently. Denies any chest pain denies any difficulty speech swallowing or gait. He has no localizing deficits. No abdominal pain no headache. MD elicited complaint: dizziness Onset (ago): minute(s) Timing: sudden onset Severity: moderate Exacerbating factors: nothing Associated symptoms: Denies change in hearing, chest pain, chills, cough, diaphoresis, ear discharge, ear pressure, fevers/chills, headache(s), malaise, nausea, nasal congestion, palpitations, rash, short of breath, syncope, tinnitus, vomiting or weakness Associated neuro symptoms: Deny confusion, difficulty speaking, dysphagia, diplopia, extremity weakness, facial numbness, facial weakness, gait changes or numbness in extremities Review of Systems Const: Reports: fever(s); Denies: chills, malaise or diaphoresis ENMT: Denies: ear discharge, change in hearing, tinnitus or nasal congestion Card: Denies: chest pain, palpitations or syncope Resp: Denies: dyspnea, productive cough or non-productive cough GI: Denies: abdominal pain, nausea, vomiting or dysphagia : Denies: dysuria, urinary frequency or urinary urgency Skin/Breast: Denies: rash or pruritus Neuro: Denies: headache(s), numbness in extremities or confusion PFS ED PFSH: Medical History HTN (hypertension) Social History Smoking and tobacco status: never smoked Alcohol intake: never Physical Exam Const: GENERAL APPEARANCE: cooperative and comfortable ORIENTATION/CONSCIOUSNESS: Yes awake, Yes oriented to person, Yes oriented to place and Yes oriented to time HENMT: COMMON NORMALS: normocephalic, atraumatic and hearing grossly normal bilaterally HEAD & SCALP: normocephalic and atraumatic Resp: COMMON NORMALS: normal respiratory effort, No retractions, No use of accessory muscles and clear to auscultation bilaterally AUSCULTATION: clear to auscultation bilaterally Cardio: COMMON NORMALS: regular rate, regular rhythm and No murmurs present (Cardio) RATE: regular rate RHYTHM: regular rhythm GI: COMMON NORMALS: Soft to palpation and No hepatosplenomegaly present AUSCULTATION: Yes normoactive bowel sounds PALPATION: Yes Soft to palpation, No Tenderness to palpation present (GI), No Guarding due to palpation present (GI) and Yes No hepatosplenomegaly present Extremity: COMMON NORMALS: normal to inspection, capillary refill normal, no clubbing, cyanosis or edema, no calf tenderness and no pedal edema Neuro: SENSORIUM/ORIENTATION: Yes oriented to person, Yes oriented to place and Yes oriented to time Skin: COMMON NORMALS: no rashes or lesions noted GENERAL SKIN EXAM: no rashes or lesions noted Course Vital Signs: Vital signs: Vital Signs Temperature 101.8 F H 07/24/22 14:50 Pulse Rate 96 07/24/22 13:30 Respiratory Rate 19 H 07/24/22 13:30 Blood Pressure 152/104 07/24/22 15:30 Pulse Oximetry 93 07/24/22 15:30 Oxygen Delivery Me thod 07/24/22 10:32 MDM - Dizziness Medical Decision Making Patient positive for influenza A. The other labs and imaging are reviewed. His is concerned and wants him start antibiotics and steroids cautioned against this instead recommend renal results have a 48-hour to go ahead and start on Tamiflu there is literature in up-to-date that suggests this is still effective. Discussed this with them prescription given follow-up primary care Medical Records I reviewed the patient's medical records. Lab Data I reviewed the patient's lab results. 07/24/22 11:19 07/24/22 11:19 Radiology Impressions Chest X-Ray 07/24/22 13:04 Impression: Old granulomatous disease Laboratory Results WBC 6.4 10^3/uL (4.0-10.0) 07/24/22 11:19 RBC 4.71 10^6/uL (4.1-5.3) 07/24/22 11:19 Hgb 15.1 g/dL (11.7-16.6) 07/24/22 11:19 Hct 44.6 % (42.0-52.0) 07/24/22 11:19 MCV 94.7 fl (80-94) H 07/24/22 11:19 MCH 32.1 pg (28.0-34.0) 07/24/22 11:19 MCHC 33.9 g/dL (30.0-36.0) 07/24/22 11:19 RDW 12.5 % (12.1-15.1) 07/24/22 11:19 Plt Count 146 10^3/cmm (130-400) 07/24/22 11:19 MPV 10.5 fL (7.4-10.4) H 07/24/22 11:19 Neut % (Auto) 80.4 % 07/24/22 11:19 Lymph % (Auto) 7.8 % 07/24/22 11:19 [place] % (Auto) 10.7 % 07/24/22 11:19 Eos % (Auto) 0.3 % 07/24/22 11:19 Baso % (Auto) 0.5 % 07/24/22 11:19 Neut # (Auto) 5.18 10^3/uL (1.8-7.7) 07/24/22 11:19 Lymph # (Auto) 0.5 10^3/uL (0.8-4.8) L 07/24/22 11:19 [place] # (Auto) 0.7 10^3/uL (0.2-0.9) 07/24/22 11:19 Eos # (Auto) 0.0 10^3/uL (0.0-0.8) 07/24/22 11:19 Baso # (Auto) 0.0 10^3/uL (0.0-0.1) 07/24/22 11:19 Nucleated RBC % (auto) 0 % 07/24/22 11:19 Nucleated RBCs # 0.0 /100WBC 07/24/22 11:19 Specimen Type Arterial 07/24/22 13:37 Sample Site Radial, left 07/24/22 13:37 ABG pH 7.44 (7.35-7.45) 07/24/22 13:37 ABG pCO2 37.4 mmHg (35-45) 07/24/22 13:37 ABG pO2 84.2 mmHg (80.0-100.0) 07/24/22 13:37 ABG HCO3 25.5 mmol/L (22-26) 07/24/22 13:37 ABG O2 Saturation 98.0 07/24/22 13:37 ABG Base Excess 1.6 mmol/L (-2.0-2.0) 07/24/22 13:37 Dominik Test Pos 07/24/22 13:37 A-a O2 Gradient 2.5 mmHg (5-10) L 07/24/22 13:37 Hematocrit 46.1 % (42-52) 07/24/22 13:37 Hgb O2 Saturation 96.3 % (95-100) 07/24/22 13:37 Carboxyhemoglobin 1.1 %THgb (0.4-20.1) 07/24/22 13:37 Methemoglobin 0.7 % (0.4-1.5) 07/24/22 13:37 Total Hemoglobin 15.0 g/dL (14-18) 07/24/22 13:37 Sodium 139.0 mmol/L (131-143) 07/24/22 13:37 Potassium 3.9 mmol/L (3.5-5.0) 07/24/22 13:37 Glucose 105.0 mg/dL (70-115) 07/24/22 13:37 Ionized Calcium 1.3 mmol/L (1.1-1.4) 07/24/22 13:37 O2 Delivery Device Nc 07/24/22 13:37 O2 Liters/Min 2.0 % 07/24/22 13:37 Lead Business Systems Analyst ID [place] 07/24/22 13:37 Sodium 137 mmol/L (136-145) 07/24/22 11:19 Potassium 3.7 mmol/L (3.5-5.1) 07/24/22 11:19 Chloride 102 mmol/L (98-107) 07/24/22 11:19 Carbon Dioxide 27 mmol/L (22-29) 07/24/22 11:19 Anion Gap 11.7 (5-19) 07/24/22 11:19 BUN 15 mg/dL (8-23) 07/24/22 11:19 Creatinine 0.8 mg/dL (0.7-1.2) 07/24/22 11:19 GFR Calculation Not Reportable 07/24/22 11:19 Glucose 115 mg/dL (65-115) 07/24/22 11:19 Calculated Osmolality 286 mOsm/kg (285-295) 07/24/22 11:19 Calcium 9.9 mg/dL (8.5-10.5) 07/24/22 11:19 Troponin T Baseline 13 ng/L (0-15) 07/24/22 11:19 Troponin T 120 Minute 12.97 ng/L (0-15) 07/24/22 13:47 Delta Troponin T -0.03 ABS# (0-10) L 07/24/22 13:47 Urine Color Yellow (Yellow) 07/24/22 13:14 Urine Appearance Clear (CLEAR) 07/24/22 13:14 Urine pH 6 (5-7) 07/24/22 13:14 Ur Specific [place] 1.025 (1.005-1.030) 07/24/22 13:14 Urine Protein Neg (Negative) 07/24/22 13:14 Urine Glucose (UA) Norm (Normal) 07/24/22 13:14 Urine Ketones 1+ (Negative) H 07/24/22 13:14 Urine Blood Neg (Negative) 07/24/22 13:14 Urine Nitrate Negative (Negative) 07/24/22 13:14 Urine Bilirubin Neg (Negative) 07/24/22 13:14 Urine Urobilinogen Norm mg/dL (Negative) 07/24/22 13:14 Ur Leukocyte Esterase Negative (Negative) 07/24/22 13:14 Influenza Type A Ag positive (Negative) H 07/24/22 15:07 Influenza Type B Ag negative (Negative) 07/24/22 15:07 Discharge Plan Discharge Patient Disposition: Home Clinical Impression: Influenza A Condition: Stable Prescriptions: New Tamiflu 75 mg capsule 75 mg PO BID 5 Days Qty: 10 0RF No Action nitroglycerin 0.4 mg tablet, sublingual 0.4 mg sublingual Q5M PRN (Reason: chest pain) Qty: 30 0RF Rx Instructions: do not exceed 3 doses per episode atorvastatin 40 mg tablet 40 mg PO BEDTIME@2100 pantoprazole 40 mg tablet,delayed release (DR/EC) 40 mg PO DAILY@08 paroxetine HCl 10 mg Tablet 10 mg PO DAILY albuterol sulfate 90 mcg/actuation Hfa Aerosol Inhaler 1 inh INHALATION QID PRN (Reason: Shortness Of Breath) losartan 50 mg Tablet 25 mg PO DAILY Qty: 15 0RF Discharge Orders: Discharge ED (Routine); Ordered 07/24/22 Ordered By: Dandre Rosales Referrals: Gordo Bradley, [Primary Care Provider] - Discharge Diet: Usual diet Discharge Activity: Resume usual activity Patient Instructions: Opioid Safety, Pain Management Activity Restrictions/Additional Instructions: You were seen today for lightheadedness dizziness cough. Ultimately think showed you have influenza A. You are outside the usual window of initiating antivirals it is recommended to be started within 48 hours of onset of symptoms. There is some studies that show that for people with high risk chronic lung conditions even if they are outside of the 48-hour window it can be beneficial to take Tamiflu so you were given a prescription for this. Coding Level of Care Code ED [employer] for Ioana Fwd Exam Detailed
[2022-07-24 13:32] LABS: Anion Gap 11.7 (5-19); Blood Urea Nitrogen 15 mg/dL (8-23); Calcium 9.9 mg/dL (8.5-10.5); Carbon Dioxide 27 mmol/L (22-29); Chloride 102 mmol/L (98-107); Glucose 115 mg/dL (65-115); Osmolality Calculated 286 mOsm/kg (285-295); Potassium 3.7 mmol/L (3.5-5.1); Sodium 137 mmol/L (136-145)
[2022-07-24 13:34] LABS: Troponin(5th) Baseline 13 ng/L (0-15)
[2022-07-24 13:48] LABS: ABG PCO2 37.4 mmHg (35-45); ABG PH Result 7.44 (7.35-7.45); Alveolar-Arterial Oxygen Gradi 2.5 mmHg (5-10); Arterial Blood Gas Hematocrit 46.1 % (42-52); Base Excess ABG 1.6 mmol/L (-2.0-2.0); Blood Gas Allen Test Pos; Blood Gas Operator Identificat WALCI; Blood Gas Sample Site Radial, left; Blood Gas Sample Type Arterial; Carboxyhemoglobin 1.1 %THgb (0.4-20.1); HCO3 ABG 25.5 mmol/L (22-26); HGB O2 Sat 96.3 % (95-100); Ionized Calcium Level - ABG 1.3 mmol/L (1.1-1.4); Methemoglobin 0.7 % (0.4-1.5); Oxygen Device NC; PO2 ABG 84.2 mmHg (80.0-100.0); Potassium Level - ABG 3.9 mmol/L (3.5-5.0)
[2022-07-24 14:22] LABS: Troponin 5 2HR 12.97 ng/L (0-15)
[2022-07-24 14:33] LABS: Troponin 5 2HR Delta -0.03 ABS# (0-10)
--- NOTE | 2022-07-24 14:48 | ECG_ITS ---
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 Measurements Intervals [place] Rate: 99 P: 74 AR: 175 QRS: 48 QRSD: 92 T: 69 QT: 330 QTc: 424 Interpretive Statements SINUS RHYTHM WITH OCCASIONAL SUPRAVENTRICULAR PREMATURE COMPLEXES Compared to ECG 06/11/2022 15:01:55 Sinus bradycardia no longer present Electronically Signed On 07-24-2022 16:15:59 CUT OFF MAN by Edy Downs M.D. [id number]
[2022-07-24 15:27] LABS: Influenza A by IFA positive (Negative); Influenza B by IFA negative (Negative)
== END 2022-07-24 16:49 | disposition home or self-care (01) ==
PROVIDERS: Emergency Provider Family Medicine; PCP Internal Medicine
DX: J10.1 Influenza due to other identified influenza virus with other respiratory manifestations (principal); I10 Essential (primary) hypertension
CPT/HCPCS: 36415; 36600; 71045; 80048; 80051; 81003; 82330; 82805; 84484; 85025; 87804; 93005; 99285

== ENCOUNTER 2023-02-28 16:18 | Inpatient (IN) | payer MEDICARE, OTHER, SELFPAY ==
[2023-02-28 16:19] VITALS: BP 116/79; PULSE 114; RESP 21; TEMP 38.3; O2SAT 95
--- NOTE | 2023-02-28 16:35 | XRR_ITS ---
PROCEDURE INFORMATION: Exam: XR Chest Exam date and time: 02/28/2023 5:05 PM Age: 77 years old Clinical indication: Cough; Prior surgery; Surgery date: 6+ months; Surgery type: RT lung; Additional info: Dyspnea/cough TECHNIQUE: Imaging protocol: Radiologic exam of the chest. Views: 1 view. COMPARISON: CR XR chest 1V portable [id number] 07/24/2022 1:26 PM FINDINGS: Lungs: The lungs are free of acute disease. Chain sutures are again seen in the right base. Chronic granulomatous changes are again noted. Pleural spaces: Unremarkable. No pleural effusion. No pneumothorax. Heart/Mediastinum: Unremarkable. No cardiomegaly. Diaphragm: There is elevation/eventration of the right hemidiaphragm. Bones/joints: Unremarkable. XR/XR chest 1V portable [id number] IMPRESSION: Non acute findings. No significant change.
--- NOTE | 2023-02-28 16:51 | ECG_ITS ---
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 Measurements Intervals [place] Rate: 87 P: 58 MD: 172 QRS: 47 QRSD: 93 T: 63 QT: 328 QTc: 396 Interpretive Statements SINUS RHYTHM WITH OCCASIONAL SUPRAVENTRICULAR PREMATURE COMPLEXES POSSIBLE LEFT ATRIAL ENLARGEMENT [-0.1mV P-WAVE IN V1/V2] Compared to ECG 07/24/2022 14:48:26 No significant changes Electronically Signed On 02-28-2023 22:07:26 CDT by Edy Downs M.D. [id number]
[2023-02-28 17:07] LABS: Basophils % 0.3 %; Hematocrit 41.3 % (42.0-52.0); Hemoglobin 13.8 g/dL (11.7-16.6); Lymphocytes # 0.3 10^3/uL (0.8-4.8); Lymphocytes % 8.4 %; Mean Corpuscular HGB Conc 33.4 g/dL (30.0-36.0); Mean Corpuscular Hemoglobin 31.2 pg (28.0-34.0); Mean Corpuscular Volume 93.2 fl (80-94); Mean Platelet Volume 9.4 fL (7.4-10.4); Monocytes # 0.4 10^3/uL (0.2-0.9); Monocytes % 11.5 %; Neutrophils # 3.01 10^3/uL (1.8-7.7); Nucleated Red Blood Cells % 0 %; Platelet Count 110 10^3/cmm (130-400); Red Blood Count 4.43 10^6/uL (4.1-5.3); Red Cell Distribution Width 12.6 % (12.1-15.1); White Blood Count 3.8 10^3/uL (4.0-10.0)
[2023-02-28 17:09] VITALS: BP 109/94; PULSE 91; RESP 16; O2SAT 96
--- NOTE | 2023-02-28 17:20 | CTR_ITS ---
PROCEDURE INFORMATION: Exam: CT Head Without Contrast Exam date and time: 02/28/2023 5:28 PM Age: 77 years old Clinical indication: Syncope and collapse; Additional info: Weakness TECHNIQUE: Imaging protocol: Computed tomography of the head without contrast. Radiation optimization: All CT scans at this facility use at least one of these dose optimization techniques: automated exposure control; mA and/or kV adjustment per patient size (includes targeted exams where dose is matched to clinical indication); or iterative reconstruction. REPORTING DATA: Count of CT and Cardiac NM exams in prior 12 months: This patient has received [address] and 0 known cardiac nuclear medicine studies in the 12 months prior to the current study. COMPARISON: CT head wo con* [id number] 06/11/2022 1:43 PM RADIATION DOSE METRICS: Total DLP (mGy-cm): 1069.9 FINDINGS: Brain: No hemorrhage. No edema. Moderate diffuse cerebral atrophy. 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 No mass effect. Cerebral ventricles: No ventriculomegaly. Paranasal sinuses: Mild mucosal thickening of the right maxillary sinus. The rest of the paranasal sinuses are well pneumatized. Mastoid air cells: Visualized mastoid air cells are well aerated. Bones/joints: Unremarkable. No acute fracture. Soft tissues: Unremarkable. CT/CT head wo con* [id number] IMPRESSION: 1. No acute intracranial abnormality. 2. 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
[2023-02-28 17:25] LABS: Lactic Sepsis W/Reflex 1.1 mmol/L (0.5-2.2)
--- NOTE | 2023-02-28 17:25 | ED_ITS ---
HPI - SOB/Dyspnea General: Chief Complaint: Shortness of Breath/Dyspnea Stated Complaint: stroke like symptoms Time Seen by Provider: 02/28/23 16:31 Source: patient Mode of arrival: ambulatory History of Present Illness: HPI Narrative: 77-year-old male when out side this morning to do some chores. He became weak felt like he was going to pass out he went back inside laid on the couch she started feeling better went back out to do more of his chores and had another episode and passed out completely. At that time he was on a soft [id number] his tried to help him get out she felt that his right side is extremely weak and ultimately had to get a neighbor to help get him out of the [place]by[place] de. They took him back inside he was noted to have a little bit of a low-grade fever. He has a history of sarcoidosis he has been have a little bit more difficulty with breathing and cough his temp is 101 when he arrives here he denies a productive cough. No chest pain. No known history of coronary artery disease. MD elicited complaint: shortness of breath and cough Pertinent past history: other (Sarcoidosis) Severity: moderate Exacerbating factors: exertion Relieving factors: rest Associated symptoms: Reports fever(s); Deny abdominal pain, chest congestion, chest pain, cough, diaphoresis, dizziness, extremity pain, hemoptysis, lightheadedness, myalgias, nausea, orthopnea, palpitations, paresthesias, polydipsia, polyuria, rash, sense of impending doom, syncope or vomiting Treatment prior to arrival: none Review of Systems Const: Reports: fever(s), chills, fatigue and malaise; Denies: diaphoresis ENMT: Denies: throat pain, ear or mastoid pain, nasal discharge or nasal congestion Card: Denies: chest pain, palpitations, lightheadedness, syncope or orthopnea Resp: Reports: dyspnea; Denies: hemoptysis or chest congestion GI: Denies: abdominal pain, nausea or vomiting : Denies: flank pain, dysuria, urinary frequency or urinary urgency Musc: Denies: neck pain, back pain or extremity pain Skin/Breast: Denies: rash or pruritus Neuro: Denies: dizziness Endo: Denies: polyuria or polydipsia PFS ED PFSH: Medical History HTN (hypertension) Sarcoidosis Surgical History History of lung biopsy Social History Smoking and tobacco status: never smoked Alcohol intake: never Substance/Drug Use: never Lives independently: Yes Household members: spouse Marital status: Physical Exam Const: GENERAL APPEARANCE: cooperative ORIENTATION/CONSCIOUSNESS: Yes awake, Yes oriented to person, Yes oriented to place and Yes oriented to time HENMT: COMMON NORMALS: normocephalic, atraumatic and hearing grossly normal bilaterally HEAD & SCALP: normocephalic and atraumatic Resp: COMMON NORMALS: normal respiratory effort, No retractions and No use of accessory muscles AUSCULTATION: rhonchi and wheezes Cardio: COMMON NORMALS: regular rate, regular rhythm and No murmurs present (Cardio) RATE: regular rate RHYTHM: regular rhythm GI: COMMON NORMALS: Soft to palpation and No hepatosplenomegaly present AUSCULTATION: Yes normoactive bowel sounds PALPATION: Yes Soft to palpation, No Tenderness to palpation present (GI), No Guarding due to palpation present (GI) and Yes No hepatosplenomegaly present Extremity: COMMON NORMALS: normal to inspection, capillary refill normal, no clubbing, cyanosis or edema, no calf tenderness and no pedal edema Neuro: SENSORIUM/ORIENTATION: Yes oriented to person, Yes oriented to place and Yes oriented to time Skin: COMMON NORMALS: no rashes or lesions noted GENERAL SKIN EXAM: no rashes or lesions noted Course Vital Signs: Vital signs: Vital Signs Temperature 98.9 F 03/01/23 20:23 Pulse Rate 92 03/01/23 20:23 Respiratory Rate 20 H 03/01/23 20:23 Blood Pressure 145/109 03/01/23 20:23 Pulse Oximetry 93 03/01/23 20:23 Oxygen Delivery Me thod Room Air 03/01/23 20:00 Oxygen Flow Rate 2 03/01/23 00:45 MDM - SOB/Dyspnea Medical Decision Making No evidence of stroke or patient does have fever. Discussed with hospitalist will admit. He has old CVA but nothing that appears new on clinical exam or on CT. Orders written will admit. Mild leukopenia thrombocytopenia and mildly elevated AST. He is having a fever consideration of tickborne illness tick panel is pending. EKG does not show any acute ST changes. Medical Records I reviewed the patient's medical records. Lab Data I reviewed the patient's lab results. 03/01/23 16:06 03/01/23 03:39 Labs/Radiology: Radiology Impressions Head CT 02/28/23 17:20 IMPRESSION: 1. No acute intracranial abnormality. 2. 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 Chest CTA 02/28/23 19:01 IMPRESSION: 1. Negative for pulmonary embolism. No acute findings. 2. Right-sided lobectomy changes and scattered scarring and bronchiectasis in the lungs. 3. Ectasia of the ascending thoracic aorta up to 4.2 cm. Chest X-Ray 02/28/23 23:54 IMPRESSION: No evidence for acute cardiopulmonary disease Laboratory Results WBC 2.9 10^3/uL (4.0-10.0) L 03/01/23 16:06 RBC 4.32 10^6/uL (4.1-5.3) 03/01/23 16:06 Hgb 13.4 g/dL (11.7-16.6) 03/01/23 16:06 Hct 40.1 % (42.0-52.0) L 03/01/23 16:06 MCV 92.8 fl (80-94) 03/01/23 16:06 MCH 31.0 pg (28.0-34.0) 03/01/23 16:06 MCHC 33.4 g/dL (30.0-36.0) 03/01/23 16:06 RDW 12.8 % (12.1-15.1) 03/01/23 16:06 Plt Count 81 10^3/cmm (130-400) L 03/01/23 16:06 MPV 9.4 fL (7.4-10.4) 03/01/23 16:06 Neut % (Auto) 69.4 % 03/01/23 16:06 Lymph % (Auto) 18.6 % 03/01/23 16:06 [place] % (Auto) 11.2 % 03/01/23 16:06 Eos % (Auto) 0.0 % 03/01/23 16:06 Baso % (Auto) 0.4 % 03/01/23 16:06 Reticulocyte % (Auto) 1.3 % (0.5-2.0) 03/01/23 03:39 Neut # (Auto) 1.98 10^3/uL (1.8-7.7) 03/01/23 16:06 Lymph # (Auto) 0.5 10^3/uL (0.8-4.8) L 03/01/23 16:06 [place] # (Auto) 0.3 10^3/uL (0.2-0.9) 03/01/23 16:06 Eos # (Auto) 0.0 10^3/uL (0.0-0.8) 03/01/23 16:06 Baso # (Auto) 0.0 10^3/uL (0.0-0.1) 03/01/23 16:06 Nucleated RBC % (auto) 0 % 03/01/23 16:06 Nucleated RBCs # 0.0 /100WBC 03/01/23 16:06 Peripher Smr Path Cons Sent for review 02/28/23 20:28 Retic Production Index 1.30 03/01/23 03:39 Haptoglobin 10.0 mg/L (30-200) L 03/01/23 03:39 PT 15.00 SECONDS (12.1-14.9) H 03/01/23 09:33 INR 1.14 (0.8-1.2) 03/01/23 09:33 APTT 44.3 SECONDS (23.9-36.7) H 03/01/23 09:33 Fibrinogen 322 mg/dL (174-498) 03/01/23 09:33 Fibrin Degrad Products <5 mcg/mL (LESS THAN 5) 03/01/23 09:33 Fibrin Degrad Products Not Reportable 03/01/23 09:33 D-Dimer 2.01 ug/mIFEU (0-0.59) H 03/01/23 09:33 Sodium 138 mmol/L (136-145) 03/01/23 03:39 Potassium 4.0 mmol/L (3.5-5.1) 03/01/23 03:39 Chloride 105 mmol/L (98-107) 03/01/23 03:39 Carbon Dioxide 24 mmol/L (22-29) 03/01/23 03:39 Anion Gap 13.0 (5-19) 03/01/23 03:39 BUN 15 mg/dL (8-23) 03/01/23 03:39 Creatinine 1.0 mg/dL (0.7-1.2) 03/01/23 03:39 GFR Calculation Not Reportable 03/01/23 03:39 Glucose 114 mg/dL (65-115) 03/01/23 03:39 POC Glucose 150 mg/dL (70-110) H 02/28/23 23:26 Calculated Osmolality 288 mOsm/kg (285-295) 03/01/23 03:39 Lactic Acid 1.1 mmol/L (0.5-2.2) 02/28/23 16:48 Calcium 9.1 mg/dL (8.5-10.5) 03/01/23 03:39 Magnesium 1.7 mg/dL (1.7-2.3) 03/01/23 03:39 Iron 24 ug/dL (59-158) L 03/01/23 03:39 TIBC 239 mcg/dl 03/01/23 03:39 % Saturation 10.0 % (20-50) L 03/01/23 03:39 Unsat Iron Binding 215 ug/dL (112-347) 03/01/23 03:39 Ferritin 294 ng/mL (30-400) 02/28/23 20:28 Total Bilirubin 0.7 mg/dL (0.15-1.2) 03/01/23 03:39 AST 63 U/L (0-40) H 03/01/23 03:39 ALT 43 U/L (0-41) H 03/01/23 03:39 Alkaline Phosphatase 64 U/L (40-130) 03/01/23 03:39 Lactate Dehydrogenase 295 U/L (135-225) H 03/01/23 03:39 Troponin T Baseline 12 ng/L (0-15) 02/28/23 16:54 Troponin T 120 Minute 11.95 ng/L (0-15) 02/28/23 18:57 Delta Troponin T -0.05 ABS# (0-10) L 02/28/23 18:57 Troponin T Hi Sens 6Hr 66.52 ng/L (0-15) H 03/01/23 01:07 Troponin T Hi Sens 6Hr Delta 54.52 ng/L (0-12) H* 03/01/23 01:07 C-Reactive Protein 27.9 mg/L (0.0-4.9) H 02/28/23 20:28 Total Protein 5.6 g/dL (6.6-8.7) L 03/01/23 03:39 Albumin 3.6 g/dL (3.5-5.2) 03/01/23 03:39 Globulin 2.0 g/dL (1.3-4.6) 03/01/23 03:39 Triglycerides 68 mg/dL (0-150) 02/28/23 20:28 Vitamin B12 512 pg/mL (232-1245) 03/01/23 03:39 Procalcitonin 0.35 ng/mL (0-0.5) 02/28/23 20:28 TSH 0.54 uIU/mL (0.27-4.20) 02/28/23 20:28 Random Cortisol 22.58 ug/dL (2.47-19.5) H 02/28/23 16:54 Urine Color Yellow (Yellow) 02/28/23 21:00 Urine Appearance Clear (CLEAR) 02/28/23 21:00 Urine pH 5 (5-7) 02/28/23 21:00 Ur Specific Randall 1.005 (1.005-1.030) 02/28/23 21:00 Urine Protein Trace (Negative) 02/28/23 21:00 Urine Glucose (UA) Norm (Normal) 02/28/23 21:00 Urine Ketones Negative (Negative) 02/28/23 21:00 Urine Blood 2+ (Negative) H 02/28/23 21:00 Urine Nitrate Negative (Negative) 02/28/23 21:00 Urine Bilirubin Neg (Negative) 02/28/23 21:00 Urine Urobilinogen Norm mg/dL (Negative) 02/28/23 21:00 Ur Leukocyte Esterase Negative (Negative) 02/28/23 21:00 Urine RBC 0-4 /hpf (0-2) H 02/28/23 21:00 Urine WBC None /hpf (0-5) 02/28/23 21:00 Ur Squamous Epith Cells 0-4 /hpf (0-5) H 02/28/23 21:00 Amorphous Sediment Not Reportable 02/28/23 21:00 Urine Bacteria None /hpf (NONE) 02/28/23 21:00 Nasal Influ A H1 2009 PCR Not detected (NOT DETECT) 02/28/23 17:26 Adenovirus (PCR) Not detected (NOT DETECT) 02/28/23 17:26 Lyme Ab (Western Blot) <0.90 index 02/28/23 20:28 C. pneumoniae DNA (PCR) Not detected (NOT DETECT) 02/28/23 17:26 Coronavirus 229E (PCR) Not detected (NOT DETECT) 02/28/23 17:26 E. chaffeensis IgG Ab <1:64 02/28/23 20:28 E. chaffeensis IgM Ab <1:20 02/28/23 20:28 E. chaffeensis Interp See note 02/28/23 20:28 E. chaffeensis Comment Not Reportable 02/28/23 20:28 Hepatitis A IgM Ab Non-reactive (Nonreactive) 03/01/23 03:39 Hep Bs Antigen Non-reactive (Nonreactive) 03/01/23 03:39 Hep B Core IgM Ab Non-reactive (Nonreactive) 03/01/23 03:39 Hepatitis C Antibody Non-reactive (Nonreactive) 03/01/23 03:39 Human Metapneumovir PCR Not detected (NOT DETECT) 02/28/23 17:26 Influenza A (H1) PCR Not detected (NOT DETECT) 02/28/23 17:26 Influenza A (H3) PCR Not detected (NOT DETECT) 02/28/23 17:26 Influenza Type A (PCR) Not detected (NOT DETECT) 02/28/23 17:26 Influenza Type B (PCR) Not detected (NOT DETECT) 02/28/23 17:26 M. pneumoniae (PCR) Not detected (NOT DETECT) 02/28/23 17:26 Parainfluenza 1 (PCR) Not detected (NOT DETECT) 02/28/23 17:26 Parainfluenza 2 (PCR) Not detected (NOT DETECT) 02/28/23 17:26 Parainfluenza 3 (PCR) Not detected (NOT DETECT) 02/28/23 17:26 Parainfluenza 4 (PCR) Not detected (NOT DETECT) 02/28/23 17:26 RSV Type A (PCR) Not detected (NOT DETECT) 08/03/23 17:26 RSV Type B (PCR) Not detected (NOT DETECT) 02/28/23 17:26 Entero/Rhino (PCR) Not detected (NOT DETECT) 02/28/23 17:26 Rickettsia IgG Ab Not detected 02/28/23 20:28 Rickettsia IgM Ab Not detected 02/28/23 20:28 SARS-CoV-2 (PCR) Not detected (NOT DETECT) 02/28/23 17:26 LEONEL, Poly Interpret Negative 03/01/23 03:39 Discharge Plan Discharge Patient Disposition: Admitted As Inpatient Admit Provider: Trevin Bose Clinical Impression: Fever, Syncope, Transaminitis, Sarcoidosis Condition: Stable Coding Level of Care Code ED Insurance Underwriter Sales for Ioana Humphreys NIH stroke score NIHSS Level Of Consciousness - 1a: 0 Level Of Consciousness Questions - 1b: Both Correct Level Of Consciousness Commands - 1c: Both Correct Best Gaze - 2: Normal Visual Kathleen - 3: No Visual Loss Facial Palsy - 4: Normal Motor Arm Right - 5: No Drift Motor Arm Left - 5: No Drift Motor Leg Right - 6: No Drift Motor Leg Left - 6: No Drift Limb Ataxia - 7: Absent Sensory - 8: Normal Best Language - 9: No Aphasia Dysarthia - 10: Normal Extinction And Inattention - 11: 0 Score Total Score: 0
[2023-02-28 17:33] LABS: Slide Review Slide Review Perform
[2023-02-28 17:59] LABS: Albumin Level 3.9 g/dL (3.5-5.2); Alkaline Phosphatase 67 U/L (40-130); Anion Gap 16.9 (5-19); Carbon Dioxide 21 mmol/L (22-29); Globulin 2.2 g/dL (1.3-4.6); Glucose 149 mg/dL (65-115); Osmolality Calculated 288 mOsm/kg (285-295); Potassium 3.9 mmol/L (3.5-5.1); Sodium 137 mmol/L (136-145); Total Protein 6.1 g/dL (6.6-8.7)
[2023-02-28 18:01] VITALS: BP 137/88; PULSE 83; O2SAT 97
[2023-02-28 18:01] LABS: Alanine Aminotransferase 41 U/L (0-41); Aspartate Amino Transferase 53 U/L (0-40); Blood Urea Nitrogen 17 mg/dL (8-23); Calcium 9.5 mg/dL (8.5-10.5); Chloride 103 mmol/L (98-107); Total Bilirubin 0.9 mg/dL (0.15-1.2)
[2023-02-28 18:52] LABS: D Dimer 1.97 ug/mIFEU (0-0.59)
[2023-02-28] MEDS: levofloxacin-dextrose 5 % 750 MG/150 ML PREMIX 100 MG IV (18:56)
[2023-02-28 19:01] LABS: Troponin(5th) Baseline 12 ng/L (0-15)
--- NOTE | 2023-02-28 19:01 | CTR_ITS ---
PROCEDURE INFORMATION: Exam: CTA Chest With Contrast Exam date and time: 02/28/2023 7:14 PM Age: 77 years old Clinical indication: Shortness of breath; Additional info: Assess for pe TECHNIQUE: Imaging protocol: Computed tomographic angiography of the chest with contrast. Exam focused on the arteries. 3D rendering (Not supervised by radiologist): MIP and/or 3D reconstructed images were created by the technologist. Radiation optimization: All CT scans at this facility use at least one of these dose optimization techniques: automated exposure control; mA and/or kV adjustment per patient size (includes targeted exams where dose is matched to clinical indication); or iterative reconstruction. Contrast material: OMNI 350; Contrast volume: 100 ml; Contrast route: INTRAVENOUS (IV); REPORTING DATA: Count of CT and Cardiac NM exams in prior 12 months: This patient has received [address] and 0 known cardiac nuclear medicine studies in the 12 months prior to the current study. COMPARISON: CT angio chest PE protcl [id number] 09/30/2017 11:09 PM RADIATION DOSE METRICS: Total DLP (mGy-cm): 320.48 FINDINGS: Pulmonary arteries: No pulmonary emboli. Aorta: Ectasia of the ascending thoracic aorta up to 4.2 cm. Lungs: Biapical scarring. Right-sided lobectomy changes noted. Scattered scarring and bronchiectasis noted in the lungs. No consolidation. No masses. Pleural spaces: No pneumothorax. No pleural effusion. Heart: No cardiomegaly. No pericardial effusion. Lymph nodes: Calcified mediastinal hilar lymph nodes noted. No enlarged lymph nodes. Bones/joints: No acute fracture. Soft tissues: Unremarkable. CT/CT angio chest PE protcl [id number] IMPRESSION: 1. Negative for pulmonary embolism. No acute findings. 2. Right-sided lobectomy changes and scattered scarring and bronchiectasis in the lungs. 3. Ectasia of the ascending thoracic aorta up to 4.2 cm.
--- NOTE | 2023-02-28 19:19 | P.HP_ITS ---
Providers/Chief Complaint Admitting Physician: Trevin Bose Primary Care Provider: Gordo Bradley DO Chief Complaint: stroke like symptoms History of Present Illness Pleasant 77-year-old man with history of sarcoidosis, history of chronic mild respiratory difficulty, HTN, had taken his medications this morning, this morning was feeling somewhat lightheaded, but felt somewhat better, subsequently during the day had an episode of syncope while on a [id number], unresponsive, when waking up initially some reports of right-sided weakness. Low-grade temp at home 100.4 Fahrenheit and a mild headache. In ER noted febrile 101 Fahrenheit. Mild difficulty breathing, not worse than usual. No cough. Denies other recent illness. In ER NIH score 0 with nonfocal neurologic exam. Head CT with old infarct noted in right parietal lobe. Compared to prior blood pressure s blood pressure somewhat on the soft side, as low as 109/94, compared to prior 140s-150s systolic back in October. He states the day before yesterday was feeling well. Denies other recent illness. Chest x-ray nonacute. Respiratory viral panel obtained and pending. On lab work-up noted leukopenia with lymphopenia, thrombocytopenia, mild AST elevation. When questioned his does report that he has had several tick bites recently, they also report their son has had 2 tickborne illnesses earlier this year. He denies any chronic or recurrent steroid use, although was on steroid several decades back when initially diagnosed with sarcoidosis at which time was on steroids which were stopped after 2 years. Review of Systems Const: Reports: fever(s) and chills; Denies: body aches or malaise Eyes: Denies: change in vision, eye discomfort or eye redness ENMT: Denies: throat pain, oral sores or ear or mastoid pain Card: Reports: syncope and pre-syncope; Denies: chest pain or edema Resp: Reports: dyspnea (mild chronic); Denies: productive cough, change in phlegm color or hemoptysis GI: Denies: abdominal pain, nausea, vomiting, diarrhea, constipation, hem atochezia or melena : Denies: flank pain, difficulty urinating, urinary frequency or hematuria Musc: Denies: back pain, joint swelling or joint redness Skin/Breast: Denies: rash or new lesions Neuro: Reports: headache(s); Denies: numbness in extremities, weakness in extremities, dizziness, confusion or seizure-like activity Endo: Denies: polyuria or polydipsia Binu/Lymph: Denies: easy bleeding or tender lymph nodes All/Imm: Denies: urticaria or tongue swelling Medications/Allergies Home Medications Medication Instructions Recorded Confirmed Last Taken Type atorvastatin 40 mg tablet 40 mg PO BEDTIME@2100 09/07/20 06/11/22 06/10/22 History nitroglycerin 0.4 mg sublingual 0.4 mg sublingual Q5M PRN chest 09/07/20 06/11/22 Unknown Rx tablet pain #30 tabs pantoprazole 40 mg tablet,delayed 40 mg PO DAILY@08 09/07/20 06/11/22 06/11/22 History release albuterol sulfate 90 mcg/actuation 1 inh inhalation QID PRN Shortness 06/11/22 06/11/22 Unknown History aerosol inhaler Of Breath losartan 50 mg tablet 25 mg PO DAILY #15 tabs 06/11/22 06/11/22 06/11/22 Rx paroxetine HCl 10 mg tablet 10 mg PO DAILY 06/11/22 06/11/22 06/11/22 History Allergies Allergy/AdvReac Type Severity Reaction Status Date / Time No Known Allergies Allergy Verified 07/24/22 10:32 PFSH Acute PFSH: Medical History HTN (hypertension) Sarcoidosis Surgical History History of lung biopsy Social History Smoking and tobacco status: never smoked Alcohol intake: never Substance/Drug Use: never Lives independently: Yes Household members: spouse Marital status: Vitals/I&O/Wt Last Vital Signs Temp 101 F H 02/28/23 16:19 Pulse 83 02/28/23 18:01 Resp 16 02/28/23 17:09 BP 137/88 02/28/23 18:01 Pulse Ox 97 02/28/23 18:01 O2 Del Method Room Air 02/28/23 17:09 Weight last 48 hrs Weight 68.039 kg Physical Exam Const: COMMON NORMALS: patient oriented x3 and alert GENERAL APPEARANCE: cooperative ORIENTATION/CONSCIOUSNESS: Yes awake HENMT: COMMON NORMALS: oropharynx normal Neck/C-Spine: COMMON NORMALS: no JVD Resp: COMMON NORMALS: normal respiratory effort and clear to auscultation bilaterally AUSCULTATION: clear to auscultation bilaterally Cardio: COMMON NORMALS: no JVD, regular rhythm, S1 normal heart sound present, S2 normal heart sound present and No murmurs present (Cardio) RHYTHM: regular rhythm HEART SOUNDS: S1 normal heart sound present and S2 normal heart sound present GI: COMMON NORMALS: Normal to inspection, nondistended, normoactive bowel sounds present, Soft to palpation and non-tender PALPATION: Yes Soft to palpation Extremity: COMMON NORMALS: no joint enlargement and no pedal edema Neuro: COMMON NORMALS: patient oriented x3 and moves all extremities SE NSORIUM/ORIENTATION: Yes alert Skin: COMMON NORMALS: no rashes or lesions noted GENERAL SKIN EXAM: no rashes or lesions noted Data 02/28/23 16:54 02/28/23 16:54 Micro: Microbiology 02/28/23 16:54 Blood Culture - Preliminary Blood SPECIMEN COLLECTED 02/28/23 16:48 Blood Culture - Preliminary Blood SPECIMEN COLLECTED A&P Assessment and plan (1) Fever: Fever, chills, malaise, earlier today presyncope, syncope, feeling weaker, with noted fever 101 Fahrenheit in ER. Leukopenia, lymphopenia, noted thrombocytopenia. Mild transaminitis, AST up to 53. provides history of several tick bites recently. Suspected tickborne illness discussed with him and family, otherwise in differential possible pneumonia, mild dyspnea, although chest x-ray otherwise unremarkable. Pending respiratory viral panel. Discussed other differential diagnosis. D-dimer obtained as well given some dyspnea, syncope. Has received Levaquin, will empirically continue for now. Obtain tick panel, start doxycycline. Giurgius discussed with him and family. Possible sepsis with fever 101, leukopenia 3.8 not excluded. Without endorgan damage. Blood cultures been obtained. Lactate normal. Follow-up blood culture results. Obtain UA. (2) Syncope: Presyncope this morning, acute neurologic change subsequent episode of syncope. While waking up some right-sided weakness, but in ER exam nonfocal. CT shows old CVA. Additional symptoms and fever noted as above. Suspect may be related to a tickborne illness given overall presentation and history. Additionally requested D-dimer, noted returning abnormal as discussed with family consideration of possible PE. Assess additional CTA. Assess lower extremity duplex for DVT. Monitor on telemetry. Complete troponin EKG series. Baseline troponin noted normal. I do not see any significant changes to suggest AMI on EKG review. TTE. Blood pressure noted soft in ER. Hold antihypertensive for now. Monitor for now, at some point will obtain orthostatics. Bedrest for now. Fall precautions. Random serum cortisol requested, although lower suspicion for adrenal insufficiency no chronic or recently recurrent steroid. Check TSH. (3) Dyspnea: Chronic mild dyspnea with sarcoidosis. Additional assessment as above with abnormal D-dimer. Prophylactic heparin for now. Empirically for now on L evaquin. Respiratory viral panel obtained, noted negative. Monitor vitals, reassess. Albuterol as needed. (4) Bicytopenia: Suspected secondary to tickborne illness. Bicytopenia counts not suggestive of HLH. Reassess. Obtain ferritin, triglycerides. Peripheral smear. (5) Transaminitis: Mild transaminitis suspected secondary to tickborne illness. Reassess liver parameters. Plan HTN: Hold losartan HLD: Continue statin Mood disorder: paroxetine Old CVA: Noted on CT head. Monitor on telemetry. Assess TTE as above. Continue statin. Add aspirin. Monitor blood pressures. Check A1c with noted hyperglycemia 149. Discussed with ER physician, ER documentation reviewed. Attestations Medical Necessity Statement*: Place in observation for additional assessment management of fever, episodes of acute neurologic changes with presyncope and syncope subsequently with transient right-sided weakness, suspected tickborne febrile illness, cannot exclude underlying sepsis without endorgan damage, in a gentleman with underlying sarcoidosis. and High Time for a total of 80 minutes, includes reviewing past or interval history, placing orders, counseling patien t/family/other support, discussing plan of care with staff, communicating with other healthcare providers, documenting encounter and coordinating care Diagnoses Fever R50.9 Syncope R55 Dyspnea R06.00 Bicytopenia D75.89 Transaminitis R74.01
[2023-02-28] MEDS: iohexol 350 mg/mL 500 mL Btl (per mL) IV (19:27)
[2023-02-28 19:32] LABS: Adenovirus Not Detected (NOT DETECT); Chlamydia Pneumoniae Not Detected (NOT DETECT); Coronavirus 229E,HKU1,NL63,OC4 Not Detected (NOT DETECT); Human Metapneumovirus Not Detected (NOT DETECT); Human Rhinovirus/Enterovirus Not Detected (NOT DETECT); Influenza A Not Detected (NOT DETECT); Influenza A H1 Not Detected (NOT DETECT); Influenza A H1-2009 Not Detected (NOT DETECT); Influenza A H3 Not Detected (NOT DETECT); Influenza B Not Detected (NOT DETECT); Mycoplasma Pneumoniae Not Detected (NOT DETECT); Parainfluenza Virus Type 1 Not Detected (NOT DETECT); Parainfluenza Virus Type 2 Not Detected (NOT DETECT); Parainfluenza Virus Type 3 Not Detected (NOT DETECT); Parainfluenza Virus Type 4 Not Detected (NOT DETECT); Respiratory Syncytial Virus A Not Detected (NOT DETECT); Respiratory Syncytial Virus B Not Detected (NOT DETECT); SARS-COV-2 Not Detected (NOT DETECT)
[2023-02-28 19:53] VITALS: BP 142/84; PULSE 76; RESP 17; TEMP 36.7; O2SAT 96
[2023-02-28 20:00] VITALS: BP 142/84; PULSE 76; RESP 17; TEMP 36.7; O2SAT 96
[2023-02-28 20:09] LABS: Troponin 5 2HR 11.95 ng/L (0-15); Troponin 5 2HR Delta -0.05 ABS# (0-10)
[2023-02-28] MEDS: sodium chloride 0.9% 1,000 ML 100 ML IV (20:37)
[2023-02-28] MEDS: doxycycline 100 MG in sodium chloride 0.9% (plus) 100 ML IV (20:39)
[2023-02-28] MEDS: atorvastatin 40 mg Tablet PO (20:40)
[2023-02-28] MEDS: heparin 5,000 unit/mL INJ 1 mL 5000 UNIT SUBCUT (20:40)
--- NOTE | 2023-02-28 20:47 | ECG_ITS ---
[facility] Test Date: 2023-02-28 Pat Name: Ant De La Paz Department: Room: 256 Gender: Male [employer]: : 1945 Requested By: Dandre Benavidez Order Number: [id number] Jose R MD: Edy Downs M.D. Measurements Intervals [place] Rate: 90 P: 48 NV: 165 QRS: 44 QRSD: 90 T: 59 QT: 339 QTc: 415 Interpretive Statements SINUS RHYTHM WITH OCCASIONAL SUPRAVENTRICULAR PREMATURE COMPLEXES Compared to ECG 02/28/2023 16:51:47 No significant changes Electronically Signed On 02-28-2023 22:08:01 CDT by Edy Downs M.D. [email or web address] medical surgical hospitalEMED [facility].[employer]/store/OM/[id number]
[2023-02-28 21:10] LABS: Ferritin 294 ng/mL (30-400); Thyroid Stimulating Hormone 0.54 uIU/mL (0.27-4.20); Triglycerides 68 mg/dL (0-150)
[2023-02-28 21:27] LABS: Add Urine Microscopic? YES; Bilirubin Urine Neg (Negative); Blood Urine 2+ (Negative); Glucose Urine UA Norm (Normal); Ketones Urine Negative (Negative); Leukocyte Esterase Urine Negative (Negative); Nitrate Urine Negative (Negative); Protein Urine Trace (Negative); RBC Urine 0-4 /hpf (0-2); Specific Gravity, Urine 1.005 (1.005-1.030); Squamous Epithelial Cell Urine 0-4 /hpf (0-5); Urine Appearance Clear (CLEAR); Urine Color Yellow (Yellow); Urobilinogen Urine Norm (Negative); pH Urine 5 (5-7)
[2023-02-28 21:28] LABS: Cortisol Random 22.58 ug/dL (2.47-19.5)
[2023-02-28 21:28] LABS: Add Urine Culture? No
[2023-02-28 21:37] LABS: LAB Peripheral Smear Sent for Review
[2023-02-28] MEDS: acetaminophen 325 mg Tablet 650 MG PO (22:35)
[2023-02-28] MEDS: ondansetron 2 mg/ML SDV 2 mL 4 MG IVP (22:46)
[2023-02-28] MEDS: diphenhydrAMINE 50 mg/mL SDV 1mL 25 MG IVP (22:55)
[2023-02-28] MEDS: cefTRIAXone 2,000 MG in sodium chloride 0.9% (plus) 50 ML 100 MG IV (23:26)
[2023-02-28 23:30] LABS: Glucose Point of Care 150 mg/dL (70-110)
--- NOTE | 2023-02-28 23:54 | XRR_ITS ---
PROCEDURE INFORMATION: Exam: XR Chest Exam date and time: 03/01/2023 12:04 AM Age: 77 years old Clinical indication: Dyspnea and shortness of breath; Additional info: Respiratory distress TECHNIQUE: Imaging protocol: Radiologic exam of the chest. Views: 1 view. COMPARISON: CR (CHEST, ) 02/28/2023 5:05 PM FINDINGS: Lungs: Right lobectomy changes with scarring at the right perihilum and right lung base similar to the prior study. There is elevation of the right hemidiaphragm. Pleural spaces: Unremarkable. No pleural effusion. No pneumothorax. Heart/Mediastinum: Unremarkable. No cardiomegaly. Bones/joints: Unremarkable. Soft tissues: There are benign-appearing soft tissue calcifications. XR/XR chest 1V portable [id number] IMPRESSION: No evidence for acute cardiopulmonary disease
[2023-03-01] VITALS (37 sets, daily range): BP systolic 106–171; BP diastolic 57–109; PULSE 60–120; RESP 17–34; TEMP 36.7–37.2; O2SAT 91–100
--- NOTE | 2023-03-01 00:14 | ECG_ITS ---
[facility] Test Date: 2023-02-28 Pat Name: Ant De La Paz Department: Room: [facility]05 Gender: Male Patient Care Director: : 1945 Requested By: Dandre Benavidez Order Number: [id number] Jose R MD: Olivia Alvarado M.D. Measurements Intervals [place] Rate: 141 P: 37 MN: 159 QRS: 5 QRSD: 98 T: 55 QT: 298 QTc: 457 Interpretive Statements SINUS TACHYCARDIA POSSIBLE RIGHT VENTRICULAR CONDUCTION DELAY [RSR (QR) IN V1/V2] NONSPECIFIC ST & T-WAVE ABNORMALITY Compared to ECG 02/28/2023 20:47:19 T-wave abnormality now present Sinus rhythm no longer present Electronically Signed On 03-01-2023 13:41:29 CDT by Olivia Alvarado M.D. [email or web address].CXOWAREoch regional medical centerTerra Techuniversity hospitals [facility].[employer]/store/NU/[id number] f
[2023-03-01 00:39] LABS: C Reactive Protein 27.9 mg/L (0.0-4.9)
[2023-03-01 00:46] LABS: Procalcitonin 0.35 ng/mL (0-0.5)
[2023-03-01] MEDS: famotidine 20 mg/2 mL INJ IVP (01:24)
[2023-03-01] MEDS: diphenhydrAMINE 50 mg/mL SDV 1mL 25 MG IVP (01:24)
--- NOTE | 2023-03-01 01:36 | PC.NURSE ---
late entry: 2244-called to patient room, patient chilling, shivering, febrile, notable increased sob, sat 80%, modeling noted on ble up back, slightly confused, non verbal. oxygen applied by nasal cannula, sats remain low, placed on oxy mask at 6l, patient tachy at 156. placed call to Dr. Falk/came to room to assess, new order recieved for benadryl 25mg ivp, hold doxy. benadrly given, stayed at bedside, patient remained tachy, sat rebounded quickly with mask, modeling resided after 30-40 minutes, very diaphoretic, heart rate continues in 130-150's, ekg obtained via RT, respirations 40-50, called Dr. Falk for update-orders recieved to send patient to ICU, during getting patient ready for transport, breathing improved, patient now talking to staff, heartrate remains in 130's. Transported patient to ICU, family at bedside.
[2023-03-01 01:50] LABS: Troponin 5 6HR 66.52 ng/L (0-15)
[2023-03-01 01:53] LABS: Troponin 5 6HR Delta 54.52 ng/L (0-12)
--- NOTE | 2023-03-01 01:56 | ECG_ITS ---
[facility] Test Date: 2023-03-01 Pat Name: Ant De La Paz Department: Room: [facility]05 Gender: Male [place]: : 1945 Requested By: Temo Johnston Order Number: [id number] Jose R MD: Olivia Alvarado M.D. Measurements Intervals [place] Rate: 97 P: 69 NE: 187 QRS: 48 QRSD: 92 T: 59 QT: 346 QTc: 441 Interpretive Statements SINUS RHYTHM WITH SINUS ARRHYTHMIA Compared to ECG 02/28/2023 23:27:43 T-wave abnormality no longer present Electronically Signed On 03-01-2023 13:41:05 CDT by Olivia Alvarado M.D. [email or web address] Puppykaiser permanente medical centerCanvita/store/OM/[id number]/ecg/[id number]
[2023-03-01 04:27] LABS: Basophils % 0.2 %; Hematocrit 39.6 % (42.0-52.0); Hemoglobin 13.5 g/dL (11.7-16.6); Lymphocytes # 0.5 10^3/uL (0.8-4.8); Lymphocytes % 10.3 %; Mean Corpuscular HGB Conc 34.1 g/dL (30.0-36.0); Mean Corpuscular Hemoglobin 31.3 pg (28.0-34.0); Mean Corpuscular Volume 91.7 fl (80-94); Mean Platelet Volume 10.3 fL (7.4-10.4); Monocytes # 0.3 10^3/uL (0.2-0.9); Monocytes % 7.6 %; Neutrophils # 3.55 10^3/uL (1.8-7.7); Neutrophils % 81.7 %; Nucleated Red Blood Cells % 0 %; Platelet Count 87 10^3/cmm (130-400); Red Blood Count 4.32 10^6/uL (4.1-5.3); Red Cell Distribution Width 12.4 % (12.1-15.1); White Blood Count 4.4 10^3/uL (4.0-10.0)
[2023-03-01 04:44] LABS: Alanine Aminotransferase 43 U/L (0-41); Albumin Level 3.6 g/dL (3.5-5.2); Alkaline Phosphatase 64 U/L (40-130); Aspartate Amino Transferase 63 U/L (0-40); Blood Urea Nitrogen 15 mg/dL (8-23); Calcium 9.1 mg/dL (8.5-10.5); Carbon Dioxide 24 mmol/L (22-29); Chloride 105 mmol/L (98-107); Glucose 114 mg/dL (65-115); Magnesium 1.7 mg/dL (1.7-2.3); Osmolality Calculated 288 mOsm/kg (285-295); Sodium 138 mmol/L (136-145); Total Bilirubin 0.7 mg/dL (0.15-1.2); Total Protein 5.6 g/dL (6.6-8.7)
[2023-03-01] MEDS: PARoxetine 20 mg Tablet 10 MG PO (08:29)
[2023-03-01] MEDS: heparin 5,000 unit/mL INJ 1 mL 5000 UNIT SUBCUT (08:29)
[2023-03-01] MEDS: pantoprazole DR 40 mg Tablet PO (08:29)
[2023-03-01] MEDS: aspirin 81 mg EC Tablet PO (08:29)
[2023-03-01 09:14] LABS: Reticulocyte % 1.3 % (0.5-2.0)
[2023-03-01 09:27] LABS: Lactate Dehydrogenase 295 U/L (135-225)
[2023-03-01] MEDS: albuterol 2.5 mg/3 mL Neb INHALATION (09:29)
[2023-03-01 09:40] LABS: Hepatitis A Antibody IgM Non-Reactive (Nonreactive); Hepatitis B Core IgM Non-Reactive (Nonreactive); Hepatitis B Surface Antigen Non-Reactive (Nonreactive); Hepatitis C Virus Antibody Non-Reactive (Nonreactive)
[2023-03-01] MEDS: sodium chloride 0.9% 1,000 ML 100 ML IV (10:26)
[2023-03-01 10:27] LABS: INR 1.14 (0.8-1.2)
[2023-03-01 10:28] LABS: Partial Thromboplastin Time 44.3 SECONDS (23.9-36.7)
[2023-03-01 10:30] LABS: D Dimer 2.01 ug/mIFEU (0-0.59)
[2023-03-01 10:53] LABS: Fibrinogen 322 mg/dL (174-498)
[2023-03-01 11:34] LABS: Iron 24 ug/dL (59-158); Total Iron Binding Capacity 239 mcg/dl; Unsaturated Iron Binding 215 ug/dL (112-347)
[2023-03-01] MEDS: doxycycline 100 MG in sodium chloride 0.9% (plus) 100 ML IV (11:47)
[2023-03-01 11:51] LABS: Vitamin B12 512 pg/mL (232-1245)
--- NOTE | 2023-03-01 12:38 | PC.NURSE ---
[facility] transfer line called, noted a 4 day wait for medical patients.
[2023-03-01 16:16] LABS: Basophils % 0.4 %; Hematocrit 40.1 % (42.0-52.0); Hemoglobin 13.4 g/dL (11.7-16.6); Lymphocytes # 0.5 10^3/uL (0.8-4.8); Lymphocytes % 18.6 %; Mean Corpuscular HGB Conc 33.4 g/dL (30.0-36.0); Mean Corpuscular Volume 92.8 fl (80-94); Mean Platelet Volume 9.4 fL (7.4-10.4); Monocytes # 0.3 10^3/uL (0.2-0.9); Monocytes % 11.2 %; Neutrophils # 1.98 10^3/uL (1.8-7.7); Neutrophils % 69.4 %; Nucleated Red Blood Cells % 0 %; Platelet Count 81 10^3/cmm (130-400); Red Blood Count 4.32 10^6/uL (4.1-5.3); Red Cell Distribution Width 12.8 % (12.1-15.1); White Blood Count 2.9 10^3/uL (4.0-10.0)
--- NOTE | 2023-03-01 18:13 | PC.NURSE ---
[facility] room 5485, verified by Mary Shahid at [facility]. Report called to Randee Mckeon RN at [phone]. Patient requesting air evac due to having a membership with them.
--- NOTE | 2023-03-01 18:38 | PM.TDS ---
Transfer Summary Providers Date of Admission: 03/01/23 17:22 Date of Discharge/Transfer: 03/01/23 Attending Provider at Admission: Trevin Bose Attending Provider at Transfer: Trevin Bose Primary Care Provider: Gordo Bradley DO Transfer Plans: Anticipated date of transfer: 03/01/23. Diagnoses at Discharge Discharge Diagnosis (1) Fever: Status: Acute (2) Syncope: Status: Acute (3) Dyspnea: Status: Acute (4) Bicytopenia: Status: Acute (5) Transaminitis: Status: Acute Reason for Visit Reason for Visit stroke like symptoms Hospital Course Hospital Course Pleasant 77-year-old gentleman with history of sarcoidosis, hypertension, blood pressure previously was running 140s-150s, presented after having some lightheadedness, presyncope in the morning of 02/28, felt slightly better in the late morning, but then in the afternoon had an episode of syncope while riding [id number] with his . No injury during syncope. However, unresponsive, on waking up some reported right-sided weakness transiently, low-grade temp 100.4 F due to concerns brought to ER for evaluation. In ER nonfocal examination, however, fever 101. Also new leukopenia 3.8, previously WBC 6.4, new thrombocytopenia 110, previously platelets around 160, lymphopenia. Some noted tachypnea, blood cultures collected, lactic acid normal, received a dose of Levaquin in ER for possible sepsis. BP softer than usual 109/94. Chest x-ray unremarkable. UA collected, unremarkable. 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 Subsequently carotid duplex with less than 50% carotid stenosis bilaterally. D-dimer abnormal 1.97. Assessed with CTA, no PE, noted prior right-sided lobectomy changes and scattered scattered and bronchiectasis in the lungs. Incidentally noted ectasia of ascending thoracic aorta 4.2 cm. Venous duplex without DVT. Levaquin was not continued. Subcu heparin VTE prophylaxis. Was on oral steroids for about 2 years at the time of diagnosis of sarcoidosis which was a while back, but family denies any protracted or recurrent steroids recently. Serum cortisol assessed and was 22.58. On questioning family gives history of tick bites, no noted bull's-eye or other rash. Empirically started on doxycycline, tick panel requested and pending. Minimal transaminitis, AST 53 yesterday, today with worsening up to 63 AST, 643 ALT, negative hepatitis panel. Today with further worsening thrombocytopenia down to 87,000. Hemoglobin previously around 15, currently around 13.5. Haptoglobin obtained, noted low at 10, D-dimer again elevated at 2.01, LDH elevated 295. Concern for possible hemolysis. T. bili is normal. Reticulocyte 1.3%, possible hypoproliferation. Iron studies sent. Peripheral smear requested and pending. Consideration of possible HLH with bicytopenia, fever - ferritin requested, normal, triglyeride normal. Iron studies came back, is noted to have iron deficiency anemia, iron saturation 10%. B12 WNL, TSH WNL. Ravi negative. Overnight moved to ICU due to episode of mottling which was thought to be possibly reaction to doxycycline as he was at the time getting an infusion. Antibiotic was stopped, he was monitored in ICU. Additional fever reported 101 Fahrenheit at 2200 (appears not charted). Per discussion with his today, episode happened during infusion of doxycycline but was similar to prior episode at home before admission. At that time his lips had turned blue. No arrhythmia noted while here. On presentation normal troponin at baseline and 2 hours, however, with delta 54.52, Trop 66.52 at 6 hours. Started on low-dose aspirin. Statin held for now due to worsening transaminitis. Acute hepatitis serology negative. No chest pain. TTE obtained, 70% EF, grade 1 diastolic dysfunction, abnormal relaxation filling pattern, normal to mildly elevated filling pressures. Recheck troponin ordered. Not escalated on aspirin, anticoagulation due to concern for continually decreasing platelets. This afternoon down to 81,000. Worsened leukopenia 2.9, lymphocytes 0.5. With so far lack of definitive etiology, although suspected tickborne illness family requested to try repeat infusion of doxycycline which we did while in ICU and he did tolerated this afternoon. Still without clearly established etiology with worsening blood counts discussed with family consideration of evaluation at higher level care facility with consideration of ID and hematology evaluation for possible complicated and/or alternative process to which they are agreeable and he was accepted for further assessment and treatment in [place] at [facility] after discussion with the on-call physician. Physical Exam Narrative: Family at bedside. Const: COMMON NORMALS: patient oriented x3 and alert GENERAL APPEARANCE: cooperative ORIENTATION/CONSCIOUSNESS: Yes awake HENMT: COMMON NORMALS: oropharynx normal Neck/C-Spine: COMMON NORMALS: no JVD Resp: COMMON NORMALS: normal respiratory effort and clear to auscultation bilaterally AUSCULTATION: clear to auscultation bilaterally Cardio: COMMON NORMALS: no JVD, regular rhythm, S1 normal heart sound present, S2 normal heart sound present and No murmurs present (Cardio) RHYTHM: regular rhythm HEART SOUNDS: S1 normal heart sound present and S2 normal heart sound present GI: COMMON NORMALS: Normal to inspection, nondistended, normoactive bowel sounds present, Soft to palpation and non-tender PALPATION: Yes Soft to palpation Extremity: COMMON NORMALS: no joint enlargement and no pedal edema Neuro: COMMON NORMALS: patient oriented x3 and moves all extremities SENSORIUM/ORIENTATION: Yes alert Skin: COMMON NORMALS: no rashes or lesions noted GENERAL SKIN EXAM: no rashes or lesions noted TS Data Studies Completed and Pending Pending at discharge Category Date Time Status Blood Culture Stat Lab 02/28/23 16:54 Results Complete Blood Count w/Auto AM LABS Lab 03/02/23 04:00 Ordered Complete Blood Count w/Auto AM LABS Lab 03/03/23 04:00 Ordered Comprehensive Metabolic Panel AM LABS Lab 03/02/23 04:00 Ordered Comprehensive Metabolic Panel AM LABS Lab 03/03/23 04:00 Ordered Fibrinogen Degradation Product Routine Lab 03/01/23 09:33 Received Retype for Patiets ABO/Rh Routine Lab 03/01/23 12:18 Ordered Tick Panel Routine Lab 02/28/23 20:28 Received Troponin T (5th) Once AM LABS Lab 03/02/23 04:00 Ordered Labs from last 24 hours 03/01/23 03/01/23 03/01/23 16:06 09:33 03:39 WBC 2.9 L RBC 4.32 Hgb 13.4 Hct 40.1 L MCV 92.8 MCH 31.0 MCHC 33.4 RDW 12.8 Plt Count 81 L MPV 9.4 Neut % (Auto) 69.4 Lymph % (Auto) 18.6 Nye % (Auto) 11.2 Eos % (Auto) 0.0 Baso % (Auto) 0.4 Reticulocyte % (Auto) Neut # (Auto) 1.98 Lymph # (Auto) 0.5 L Nye # (Auto) 0.3 Eos # (Auto) 0.0 Baso # (Auto) 0.0 Nucleated RBC % (auto) 0 Nucleated RBCs # 0.0 Peripher Smr Path Cons Retic Production Index Haptoglobin PT 15.00 H INR 1.14 APTT 44.3 H Fibrinogen 322 Fibrin Degrad Products Not Reportable D-Dimer 2.01 H Sodium Potassium Chloride Carbon Dioxide Anion Gap BUN Creatinine GFR Calculation Glucose POC Glucose Calculated Osmolality Calcium Magnesium Iron TIBC % Saturation Unsat Iron Binding Ferritin Total Bilirubin AST ALT Alkaline Phosphatase Lactate Dehydrogenase Troponin T Baseline Troponin T 120 Minute Delta Troponin T Troponin T Hi Sens 6Hr Troponin T Hi Sens 6Hr Delta C-Reactive Protein Total Protein Albumin Globulin Triglycerides Vitamin B12 Procalcitonin TSH Random Cortisol Urine Color Urine Appearance Urine pH Ur Specific [place] Urine Protein Urine Glucose (UA) Urine Ketones Urine Blood Urine Nitrate Urine Bilirubin Urine Urobilinogen Ur Leukocyte Esterase Urine RBC Urine WBC Ur Squamous Epith Cells Amorphous Sediment Urine Bacteria Nasal Influ A H1 2008 PCR Adenovirus (PCR) Lyme Ab (Western Blot) C. pneumoniae DNA (PCR) Coronavirus 229E (PCR) E. chaffeensis IgG Ab E. chaffeensis IgM Ab E. chaffeensis Interp E. chaffeensis Comment Hepatitis A IgM Ab Hep Bs Antigen Hep B Core IgM Ab Hepatitis C Antibody Human Metapneumovir PCR Influenza A (H1) PCR Influenza A (H3) PCR Influenza Type A (PCR) Influenza Type B (PCR) M. pneumoniae (PCR) Parainfluenza 1 (PCR) Parainfluenza 2 (PCR) Parainfluenza 3 (PCR) Parainfluenza 4 (PCR) RSV Type A (PCR) RSV Type B (PCR) Entero/Rhino (PCR) Rickettsia IgG Ab Rickettsia IgM Ab SARS-CoV-2 (PCR) LEONEL, Poly Interpret Negative 03/01/23 03/01/23 03/01/23 03:39 03:39 03:39 WBC RBC Hgb Hct MCV MCH MCHC RDW Plt Count MPV Neut % (Auto) Lymph % (Auto) Nye % (Auto) Eos % (Auto) Baso % (Auto) Reticulocyte % (Auto) Neut # (Auto) Lymph # (Auto) Nye # (Auto) Eos # (Auto) Baso # (Auto) Nucleated RBC % (auto) Nucleated RBCs # Peripher Smr Path Cons Retic Production Index Haptoglobin 10.0 L PT INR APTT Fibrinogen Fibrin Degrad Products D-Dimer Sodium Potassium Chloride Carbon Dioxide Anion Gap BUN Creatinine GFR Calculation Glucose POC Glucose Calculated Osmolality Calcium Magnesium Iron 24 L TIBC 239 % Saturation 10.0 L Unsat Iron Binding 215 Ferritin Total Bilirubin AST ALT Alkaline Phosphatase Lactate Dehydrogenase 295 H Troponin T Baseline Troponin T 120 Minute Delta Troponin T Troponin T Hi Sens 6Hr Troponin T Hi Sens 6Hr Delta C-Reactive Protein Total Protein Albumin Globulin Triglycerides Vitamin B12 512 Procalcitonin TSH Random Cortisol Urine Color Urine Appearance Urine pH Ur Specific [place] Urine Protein Urine Glucose (UA) Urine Ketones Urine Blood Urine Nitrate Urine Bilirubin Urine Urobilinogen Ur Leukocyte Esterase Urine RBC Urine WBC Ur Squamous Epith Cells Amorphous Sediment Urine Bacteria Nasal Influ A H1 2008 PCR Adenovirus (PCR) Lyme Ab (Western Blot) C. pneumoniae DNA (PCR) Coronavirus 229E (PCR) E. chaffeensis IgG Ab E. chaffeensis IgM Ab E. chaffeensis Interp E. chaffeensis Comment Hepatitis A IgM Ab Non-reactive Hep Bs Antigen Non-reactive Hep B Core IgM Ab Non-reactive Hepatitis C Antibody Non-reactive Human Metapneumovir PCR Influenza A (H1) PCR Influenza A (H3) PCR Influenza Type A (PCR) Influenza Type B (PCR) M. pneumoniae (PCR) Parainfluenza 1 (PCR) Parainfluenza 2 (PCR) Parainfluenza 3 (PCR) Parainfluenza 4 (PCR) RSV Type A (PCR) RSV Type B (PCR) Entero/Rhino (PCR) Rickettsia IgG Ab Rickettsia IgM Ab SARS-CoV-2 (PCR) LEONEL, Poly Interpret 03/01/23 03/01/23 03/01/23 03:39 03:39 03:39 WBC 4.4 RBC 4.32 Hgb 13.5 Hct 40.0 L 39.6 L MCV 91.7 MCH 31.3 MCHC 34.1 RDW 12.4 Plt Count 87 L MPV 10.3 Neut % (Auto) 81.7 Lymph % (Auto) 10.3 Nye % (Auto) 7.6 Eos % (Auto) 0.0 Baso % (Auto) 0.2 Reticulocyte % (Auto) 1.3 Neut # (Auto) 3.55 Lymph # (Auto) 0.5 L Nye # (Auto) 0.3 Eos # (Auto) 0.0 Baso # (Auto) 0.0 Nucleated RBC % (auto) 0 Nucleated RBCs # 0.0 Peripher Smr Path Cons Retic Production Index 1.30 Haptoglobin PT INR APTT Fibrinogen Fibrin Degrad Products D-Dimer Sodium 138 Potassium 4.0 Chloride 105 Carbon Dioxide 24 Anion Gap 13.0 BUN 15 Creatinine 1.0 GFR Calculation Not Reportable Glucose 114 POC Glucose Calculated Osmolality 288 Calcium 9.1 Magnesium 1.7 Iron TIBC % Saturation Unsat Iron Binding Ferritin Total Bilirubin 0.7 AST 63 H ALT 43 H Alkaline Phosphatase 64 Lactate Dehydrogenase Troponin T Baseline Troponin T 120 Minute Delta Troponin T Troponin T Hi Sens 6Hr Troponin T Hi Sens 6Hr Delta C-Reactive Protein Total Protein 5.6 L Albumin 3.6 Globulin 2.0 Triglycerides Vitamin B12 Procalcitonin TSH Random Cortisol Urine Color Urine Appearance Urine pH Ur Specific [place] Urine Protein Urine Glucose (UA) Urine Ketones Urine Blood Urine Nitrate Urine Bilirubin Urine Urobilinogen Ur Leukocyte Esterase Urine RBC Urine WBC Ur Squamous Epith Cells Amorphous Sediment Urine Bacteria Nasal Influ A H1 2008 PCR Adenovirus (PCR) Lyme Ab (Western Blot) C. pneumoniae DNA (PCR) Coronavirus 229E (PCR) E. chaffeensis IgG Ab E. chaffeensis IgM Ab E. chaffeensis Interp E. chaffeensis Comment Hepatitis A IgM Ab Hep Bs Antigen Hep B Core IgM Ab Hepatitis C Antibody Human Metapneumovir PCR Influenza A (H1) PCR Influenza A (H3) PCR Influenza Type A (PCR) Influenza Type B (PCR) M. pneumoniae (PCR) Parainfluenza 1 (PCR) Parainfluenza 2 (PCR) Parainfluenza 3 (PCR) Parainfluenza 4 (PCR) RSV Type A (PCR) RSV Type B (PCR) Entero/Rhino (PCR) Rickettsia IgG Ab Rickettsia IgM Ab SARS-CoV-2 (PCR) LEONEL, Poly Interpret 03/01/23 02/28/23 02/28/23 01:07 23:26 21:00 WBC RBC Hgb Hct MCV MCH MCHC RDW Plt Count MPV Neut % (Auto) Lymph % (Auto) Nye % (Auto) Eos % (Auto) Baso % (Auto) Reticulocyte % (Auto) Neut # (Auto) Lymph # (Auto) Nye # (Auto) Eos # (Auto) Baso # (Auto) Nucleated RBC % (auto) Nucleated RBCs # Peripher Smr Path Cons Retic Production Index Haptoglobin PT INR APTT Fibrinogen Fibrin Degrad Products D-Dimer Sodium Potassium Chloride Carbon Dioxide Anion Gap BUN Creatinine GFR Calculation Glucose POC Glucose 150 H Calculated Osmolality Calcium Magnesium Iron TIBC % Saturation Unsat Iron Binding Ferritin Total Bilirubin AST ALT Alkaline Phosphatase Lactate Dehydrogenase Troponin T Baseline Troponin T 120 Minute Delta Troponin T Troponin T Hi Sens 6Hr 66.52 H Troponin T Hi Sens 6Hr Delta 54.52 H* C-Reactive Protein Total Protein Albumin Globulin Triglycerides Vitamin B12 Procalcitonin TSH Random Cortisol Urine Color Yellow Urine Appearance Clear Urine pH 5 Ur Specific [place] 1.005 Urine Protein Trace Urine Glucose (UA) Norm Urine Ketones Negative Urine Blood 2+ H Urine Nitrate Negative Urine Bilirubin Neg Urine Urobilinogen Norm Ur Leukocyte Esterase Negative Urine RBC 0-4 H Urine WBC None Ur Squamous Epith Cells 0-4 H Amorphous Sediment Not Reportable Urine Bacteria None Nasal Influ A H1 2008 PCR Adenovirus (PCR) Lyme Ab (Western Blot) C. pneumoniae DNA (PCR) Coronavirus 229E (PCR) E. chaffeensis IgG Ab E. chaffeensis IgM Ab E. chaffeensis Interp E. chaffeensis Comment Hepatitis A IgM Ab Hep Bs Antigen Hep B Core IgM Ab Hepatitis C Antibody Human Metapneumovir PCR Influenza A (H1) PCR Influenza A (H3) PCR Influenza Type A (PCR) Influenza Type B (PCR) M. pneumoniae (PCR) Parainfluenza 1 (PCR) Parainfluenza 2 (PCR) Parainfluenza 3 (PCR) Parainfluenza 4 (PCR) RSV Type A (PCR) RSV Type B (PCR) Entero/Rhino (PCR) Rickettsia IgG Ab Rickettsia IgM Ab SARS-CoV-2 (PCR) LEONEL, Poly Interpret 02/28/23 02/28/23 02/28/23 20:28 20:28 20:28 WBC RBC Hgb Hct MCV MCH MCHC RDW Plt Count MPV Neut % (Auto) Lymph % (Auto) Nye % (Auto) Eos % (Auto) Baso % (Auto) Reticulocyte % (Auto) Neut # (Auto) Lymph # (Auto) Nye # (Auto) Eos # (Auto) Baso # (Auto) Nucleated RBC % (auto) Nucleated RBCs # Peripher Smr Path Cons Sent for review Retic Production Index Haptoglobin PT INR APTT Fibrinogen Fibrin Degrad Products D-Dimer Sodium Potassium Chloride Carbon Dioxide Anion Gap BUN Creatinine GFR Calculation Glucose POC Glucose Calculated Osmolality Calcium Magnesium Iron TIBC % Saturation Unsat Iron Binding Ferritin 294 Total Bilirubin AST ALT Alkaline Phosphatase Lactate Dehydrogenase Troponin T Baseline Troponin T 120 Minute Delta Troponin T Troponin T Hi Sens 6Hr Troponin T Hi Sens 6Hr Delta C-Reactive Protein 27.9 H Total Protein Albumin Globulin Triglycerides 68 Vitamin B12 Procalcitonin 0.35 TSH 0.54 Random Cortisol Urine Color Urine Appearance Urine pH Ur Specific [place] Urine Protein Urine Glucose (UA) Urine Ketones Urine Blood Urine Nitrate Urine Bilirubin Urine Urobilinogen Ur Leukocyte Esterase Urine RBC Urine WBC Ur Squamous Epith Cells Amorphous Sediment Urine Bacteria Nasal Influ A H1 2008 PCR Adenovirus (PCR) Lyme Ab (Western Blot) C. pneumoniae DNA (PCR) Coronavirus 229E (PCR) E. chaffeensis IgG Ab E. chaffeensis IgM Ab E. chaffeensis Interp E. chaffeensis Comment Hepatitis A IgM Ab Hep Bs Antigen Hep B Core IgM Ab Hepatitis C Antibody Human Metapneumovir PCR Influenza A (H1) PCR Influenza A (H3) PCR Influenza Type A (PCR) Influenza Type B (PCR) M. pneumoniae (PCR) Parainfluenza 1 (PCR) Parainfluenza 2 (PCR) Parainfluenza 3 (PCR) Parainfluenza 4 (PCR) RSV Type A (PCR) RSV Type B (PCR) Entero/Rhino (PCR) Rickettsia IgG Ab Rickettsia IgM Ab SARS-CoV-2 (PCR) LEONEL, Poly Interpret 02/28/23 02/28/23 02/28/23 20:28 18:57 17:26 WBC RBC Hgb Hct MCV MCH MCHC RDW Plt Count MPV Neut % (Auto) Lymph % (Auto) Nye % (Auto) Eos % (Auto) Baso % (Auto) Reticulocyte % (Auto) Neut # (Auto) Lymph # (Auto) Nye # (Auto) Eos # (Auto) Baso # (Auto) Nucleated RBC % (auto) Nucleated RBCs # Peripher Smr Path Cons Retic Production Index Haptoglobin PT INR APTT Fibrinogen Fibrin Degrad Products D-Dimer Sodium Potassium Chloride Carbon Dioxide Anion Gap BUN Creatinine GFR Calculation Glucose POC Glucose Calculated Osmolality Calcium Magnesium Iron TIBC % Saturation Unsat Iron Binding Ferritin Total Bilirubin AST ALT Alkaline Phosphatase Lactate Dehydrogenase Troponin T Baseline Troponin T 120 Minute 11.95 Delta Troponin T -0.05 L Troponin T Hi Sens 6Hr Troponin T Hi Sens 6Hr Delta C-Reactive Protein Total Protein Albumin Globulin Triglycerides Vitamin B12 Procalcitonin TSH Random Cortisol Urine Color Urine Appearance Urine pH Ur Specific [place] Urine Protein Urine Glucose (UA) Urine Ketones Urine Blood Urine Nitrate Urine Bilirubin Urine Urobilinogen Ur Leukocyte Esterase Urine RBC Urine WBC Ur Squamous Epith Cells Amorphous Sediment Urine Bacteria Nasal Influ A H1 2008 PCR Not detected Adenovirus (PCR) Not detected Lyme Ab (Western Blot) Pending C. pneumoniae DNA (PCR) Not detected Coronavirus 229E (PCR) Not detected E. chaffeensis IgG Ab Pending E. chaffeensis IgM Ab Pending E. chaffeensis Interp Pending E. chaffeensis Comment Pending Hepatitis A IgM Ab Hep Bs Antigen Hep B Core IgM Ab Hepatitis C Antibody Human Metapneumovir PCR Not detected Influenza A (H1) PCR Not detected Influenza A (H3) PCR Not detected Influenza Type A (PCR) Not detected Influenza Type B (PCR) Not detected M. pneumoniae (PCR) Not detected Parainfluenza 1 (PCR) Not detected Parainfluenza 2 (PCR) Not detected Parainfluenza 3 (PCR) Not detected Parainfluenza 4 (PCR) Not detected RSV Type A (PCR) Not detected RSV Type B (PCR) Not detected Entero/Rhino (PCR) Not detected Rickettsia IgG Ab Pending Rickettsia IgM Ab Pending SARS-CoV-2 (PCR) Not detected LEONEL, Poly Interpret 02/28/23 02/28/23 02/28/23 16:54 16:54 13:12 WBC RBC Hgb Hct MCV MCH MCHC RDW Plt Count MPV Neut % (Auto) Lymph % (Auto) Nye % (Auto) Eos % (Auto) Baso % (Auto) Reticulocyte % (Auto) Neut # (Auto) Lymph # (Auto) Nye # (Auto) Eos # (Auto) Baso # (Auto) Nucleated RBC % (auto) Nucleated RBCs # Peripher Smr Path Cons Retic Production Index Haptoglobin PT INR APTT Fibrinogen Fibrin Degrad Products D-Dimer 1.97 H Sodium Potassium Chloride Carbon Dioxide Anion Gap BUN Creatinine GFR Calculation Glucose POC Glucose Calculated Osmolality Calcium Magnesium Iron TIBC % Saturation Unsat Iron Binding Ferritin Total Bilirubin AST ALT Alkaline Phosphatase Lactate Dehydrogenase Troponin T Baseline 12 Troponin T 120 Minute Delta Troponin T Troponin T Hi Sens 6Hr Troponin T Hi Sens 6Hr Delta C-Reactive Protein Total Protein Albumin Globulin Triglycerides Vitamin B12 Procalcitonin TSH Random Cortisol 22.58 H Urine Color Urine Appearance Urine pH Ur Specific [place] Urine Protein Urine Glucose (UA) Urine Ketones Urine Blood Urine Nitrate Urine Bilirubin Urine Urobilinogen Ur Leukocyte Esterase Urine RBC Urine WBC Ur Squamous Epith Cells Amorphous Sediment Urine Bacteria Nasal Influ A H1 2008 PCR Adenovirus (PCR) Lyme Ab (Western Blot) C. pneumoniae DNA (PCR) Coronavirus 229E (PCR) E. chaffeensis IgG Ab E. chaffeensis IgM Ab E. chaffeensis Interp E. chaffeensis Comment Hepatitis A IgM Ab Hep Bs Antigen Hep B Core IgM Ab Hepatitis C Antibody Human Metapneumovir PCR Influenza A (H1) PCR Influenza A (H3) PCR Influenza Type A (PCR) Influenza Type B (PCR) M. pneumoniae (PCR) Parainfluenza 1 (PCR) Parainfluenza 2 (PCR) Parainfluenza 3 (PCR) Parainfluenza 4 (PCR) RSV Type A (PCR) RSV Type B (PCR) Entero/Rhino (PCR) Rickettsia IgG Ab Rickettsia IgM Ab SARS-CoV-2 (PCR) LEONEL, Poly Interpret Completed Studies During Hospitalization Category Date Time Status CT head wo con* [id number] Stat Cat Scan 02/28/23 17:20 Completed CTA PE [CT angio chest PE protcl [id number]] Routine Cat Scan 02/28/23 19:01 Completed XR chest 1V portable [id number] Stat Exams 02/28/23 16:35 Completed XR chest 1V portable [id number] Urgent Exams 02/28/23 23:54 Completed [place] duplex BI* [id number] Routine Ultrasound 03/01/23 19:54 [place] [id number] Routine Ultrasound 03/01/23 19:53 Completed CV. echo complete* [id number] Routine Ultrasound 03/01/23 19:53 Completed Laboratory Last Values WBC 2.9 10^3/uL (4.0-10.0) L 03/01/23 16:06 RBC 4.32 10^6/uL (4.1-5.3) 03/01/23 16:06 Hgb 13.4 g/dL (11.7-16.6) 03/01/23 16:06 Hct 40.1 % (42.0-52.0) L 03/01/23 16:06 MCV 92.8 fl (80-94) 03/01/23 16:06 MCH 31.0 pg (28.0-34.0) 03/01/23 16:06 MCHC 33.4 g/dL (30.0-36.0) 03/01/23 16:06 RDW 12.8 % (12.1-15.1) 03/01/23 16:06 Plt Count 81 10^3/cmm (130-400) L 03/01/23 16:06 MPV 9.4 fL (7.4-10.4) 03/01/23 16:06 Neut % (Auto) 69.4 % 03/01/23 16:06 Lymph % (Auto) 18.6 % 03/01/23 16:06 Nye % (Auto) 11.2 % 03/01/23 16:06 Eos % (Auto) 0.0 % 03/01/23 16:06 Baso % (Auto) 0.4 % 03/01/23 16:06 Reticulocyte % (Auto) 1.3 % (0.5-2.0) 03/01/23 03:39 Neut # (Auto) 1.98 10^3/uL (1.8-7.7) 03/01/23 16:06 Lymph # (Auto) 0.5 10^3/uL (0.8-4.8) L 03/01/23 16:06 Nye # (Auto) 0.3 10^3/uL (0.2-0.9) 03/01/23 16:06 Eos # (Auto) 0.0 10^3/uL (0.0-0.8) 03/01/23 16:06 Baso # (Auto) 0.0 10^3/uL (0.0-0.1) 03/01/23 16:06 Nucleated RBC % (auto) 0 % 03/01/23 16:06 Nucleated RBCs # 0.0 /100WBC 03/01/23 16:06 Peripher Smr Path Cons Sent for review 02/28/23 20:28 Retic Production Index 1.30 03/01/23 03:39 Haptoglobin 10.0 mg/L (30-200) L 03/01/23 03:39 PT 15.00 SECONDS (12.1-14.9) H 03/01/23 09:33 INR 1.14 (0.8-1.2) 03/01/23 09:33 APTT 44.3 SECONDS (23.9-36.7) H 03/01/23 09:33 Fibrinogen 322 mg/dL (174-498) 03/01/23 09:33 Fibrin Degrad Products Not Reportable 03/01/23 09:33 D-Dimer 2.01 ug/mIFEU (0-0.59) H 03/01/23 09:33 Sodium 138 mmol/L (136-145) 03/01/23 03:39 Potassium 4.0 mmol/L (3.5-5.1) 03/01/23 03:39 Chloride 105 mmol/L (98-107) 03/01/23 03:39 Carbon Dioxide 24 mmol/L (22-29) 03/01/23 03:39 Anion Gap 13.0 (5-19) 03/01/23 03:39 BUN 15 mg/dL (8-23) 03/01/23 03:39 Creatinine 1.0 mg/dL (0.7-1.2) 03/01/23 03:39 GFR Calculation Not Reportable 03/01/23 03:39 Glucose 114 mg/dL (65-115) 03/01/23 03:39 POC Glucose 150 mg/dL (70-110) H 02/28/23 23:26 Calculated Osmolality 288 mOsm/kg (285-295) 03/01/23 03:39 Lactic Acid 1.1 mmol/L (0.5-2.2) 02/28/23 16:48 Calcium 9.1 mg/dL (8.5-10.5) 03/01/23 03:39 Magnesium 1.7 mg/dL (1.7-2.3) 03/01/23 03:39 Iron 24 ug/dL (59-158) L 03/01/23 03:39 TIBC 239 mcg/dl 03/01/23 03:39 % Saturation 10.0 % (20-50) L 03/01/23 03:39 Unsat Iron Binding 215 ug/dL (112-347) 03/01/23 03:39 Ferritin 294 ng/mL (30-400) 02/28/23 20:28 Total Bilirubin 0.7 mg/dL (0.15-1.2) 03/01/23 03:39 AST 63 U/L (0-40) H 03/01/23 03:39 ALT 43 U/L (0-41) H 03/01/23 03:39 Alkaline Phosphatase 64 U/L (40-130) 03/01/23 03:39 Lactate Dehydrogenase 295 U/L (135-225) H 03/01/23 03:39 Troponin T Baseline 12 ng/L (0-15) 02/28/23 16:54 Troponin T 120 Minute 11.95 ng/L (0-15) 02/28/23 18:57 Delta Troponin T -0.05 ABS# (0-10) L 02/28/23 18:57 Troponin T Hi Sens 6Hr 66.52 ng/L (0-15) H 03/01/23 01:07 Troponin T Hi Sens 6Hr Delta 54.52 ng/L (0-12) H* 03/01/23 01:07 C-Reactive Protein 27.9 mg/L (0.0-4.9) H 02/28/23 20:28 Total Protein 5.6 g/dL (6.6-8.7) L 03/01/23 03:39 Albumin 3.6 g/dL (3.5-5.2) 03/01/23 03:39 Globulin 2.0 g/dL (1.3-4.6) 03/01/23 03:39 Triglycerides 68 mg/dL (0-150) 02/28/23 20:28 Vitamin B12 512 pg/mL (232-1245) 03/01/23 03:39 Procalcitonin 0.35 ng/mL (0-0.5) 02/28/23 20:28 TSH 0.54 uIU/mL (0.27-4.20) 02/28/23 20:28 Random Cortisol 22.58 ug/dL (2.47-19.5) H 02/28/23 16:54 Urine Color Yellow (Yellow) 02/28/23 21:00 Urine Appearance Clear (CLEAR) 02/28/23 21:00 Urine pH 5 (5-7) 02/28/23 21:00 Ur Specific [place] 1.005 (1.005-1.030) 02/28/23 21:00 Urine Protein Trace (Negative) 02/28/23 21:00 Urine Glucose (UA) Norm (Normal) 02/28/23 21:00 Urine Ketones Negative (Negative) 02/28/23 21:00 Urine Blood 2+ (Negative) H 02/28/23 21:00 Urine Nitrate Negative (Negative) 02/28/23 21:00 Urine Bilirubin Neg (Negative) 02/28/23 21:00 Urine Urobilinogen Norm mg/dL (Negative) 02/28/23 21:00 Ur Leukocyte Esterase Negative (Negative) 02/28/23 21:00 Urine RBC 0-4 /hpf (0-2) H 02/28/23 21:00 Urine WBC None /hpf (0-5) 02/28/23 21:00 Ur Squamous Epith Cells 0-4 /hpf (0-5) H 02/28/23 21:00 Amorphous Sediment Not Reportable 02/28/23 21:00 Urine Bacteria None /hpf (NONE) 02/28/23 21:00 Nasal Influ A H1 2009 PCR Not detected (NOT DETECT) 02/28/23 17:26 Adenovirus (PCR) Not detected (NOT DETECT) 02/28/23 17:26 C. pneumoniae DNA (PCR) Not detected (NOT DETECT) 02/28/23 17:26 Coronavirus 229E (PCR) Not detected (NOT DETECT) 02/28/23 17:26 Hepatitis A IgM Ab Non-reactive (Nonreactive) 03/01/23 03:39 Hep Bs Antigen Non-reactive (Nonreactive) 03/01/23 03:39 Hep B Core IgM Ab Non-reactive (Nonreactive) 03/01/23 03:39 Hepatitis C Antibody Non-reactive (Nonreactive) 03/01/23 03:39 Human Metapneumovir PCR Not detected (NOT DETECT) 02/28/23 17:26 Influenza A (H1) PCR Not detected (NOT DETECT) 02/28/23 17:26 Influenza A (H3) PCR Not detected (NOT DETECT) 02/28/23 17:26 Influenza Type A (PCR) Not detected (NOT DETECT) 02/28/23 17:26 Influenza Type B (PCR) Not detected (NOT DETECT) 02/28/23 17:26 M. pneumoniae (PCR) Not detected (NOT DETECT) 02/28/23 17:26 Parainfluenza 1 (PCR) Not detected (NOT DETECT) 02/28/23 17:26 Parainfluenza 2 (PCR) Not detected (NOT DETECT) 02/28/23 17:26 Parainfluenza 3 (PCR) Not detected (NOT DETECT) 02/28/23 17:26 Parainfluenza 4 (PCR) Not detected (NOT DETECT) 02/28/23 17:26 RSV Type A (PCR) Not detected (NOT DETECT) 02/28/23 17:26 RSV Type B (PCR) Not detected (NOT DETECT) 02/28/23 17:26 Entero/Rhino (PCR) Not detected (NOT DETECT) 02/28/23 17:26 SARS-CoV-2 (PCR) Not detected (NOT DETECT) 02/28/23 17:26 LEONEL, Poly Interpret Negative 03/01/23 03:[address] 02/28/23 17:20 IMPRESSION: 1. No acute intracranial abnormality. 2. 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 Chest CTA 02/28/23 19:01 IMPRESSION: 1. Negative for pulmonary embolism. No acute findings. 2. Right-sided lobectomy changes and scattered scarring and bronchiectasis in the lungs. 3. Ectasia of the ascending thoracic aorta up to 4.2 cm. Chest X-Ray 02/28/23 23:54 IMPRESSION: No evidence for acute cardiopulmonary disease Recent Clincial Data Last Vital Signs Temp 98.4 F 03/01/23 18:03 Pulse 79 03/01/23 16:00 Resp 24 H 03/01/23 16:00 BP 154/94 03/01/23 16:00 Pulse Ox 97 03/01/23 16:00 O2 Del Method Room Air 03/01/23 16:00 O2 Flow Rate 2 03/01/23 00:45 Vital Signs Temp Pulse Resp BP Pulse Ox O2 Del Method 03/01/23 18:03 98.4 F 03/01/23 16:00 79 24 H 154/94 97 Room Air 03/01/23 15:00 85 23 H 147/85 97 Room Air 03/01/23 14:00 77 27 H 132/86 96 Room Air 03/01/23 13:00 77 24 H 149/84 99 Room Air 03/01/23 14:00 75 03/01/23 12:00 87 20 H 125/80 97 Room Air 03/01/23 11:00 90 20 H 133/58 96 Room Air 03/01/23 10:00 90 24 H 135/89 94 Room Air 03/01/23 09:00 78 22 H 94 Room Air 03/01/23 09:37 76 03/01/23 09:29 85 20 H 98 Room Air 03/01/23 08:30 66 25 H 141/79 96 Room Air 03/01/23 08:00 98.1 F 68 20 H 124/82 96 Room Air 03/01/23 07:30 67 20 H 129/72 97 Room Air 03/01/23 07:00 60 22 H 107/75 95 Room Air Intake & Output/Weight 02/27/23 02/28/23 03/01/23 03/02/23 06:59 06:59 06:59 06:59 Intake Total 500 / 500 1860 / 1860 Output Total 200 / 200 600 / 600 Balance 300 / 300 1260 / 1260 Weight 68.039 kg Vitals Last Vital Signs Temp 98.4 F 03/01/23 18:03 Pulse 79 03/01/23 16:00 Resp 24 H 03/01/23 16:00 BP 154/94 03/01/23 16:00 Pulse Ox 97 03/01/23 16:00 O2 Del Method Room Air 03/01/23 16:00 O2 Flow Rate 2 03/01/23 00:45 TS Medications Medications Acetaminophen (Acetaminophen 325 Mg Tablet) 650 mg PO Q6H PRN PRN Reason: Mild/Mod Pain Or Temp >/= 101 Last Admin: 02/28/23 22:35 Dose: 650 mg Albuterol Sulfate (Albuterol 2.5 Mg/3 Ml Neb) 2.5 mg INHALATION QID PRN PRN Reason: Shortness Of Breath Last Admin: 03/01/23 09:29 Dose: 2.5 mg Aspirin (Aspirin 81 Mg Ec Tablet) 81 mg PO DAILY [facility] Last Admin: 03/01/23 08:29 Dose: 81 mg Atorvastatin Calcium (Atorvastatin 40 Mg Tablet) 40 mg PO BEDTIME@2100 [facility] Last Admin: 02/28/23 20:40 Dose: 40 mg Heparin Sodium (Porcine) (Heparin 5,000 Unit/Ml Inj 1 Ml) 5,000 unit SUBCUT Q12H [facility] Last Admin: 03/01/23 08:29 Dose: 5,000 unit Sodium Chloride (Sodium Chloride 0.9%) 1,000 mls @ 100 mls/hr IV .Q10H [facility] Last Admin: 03/01/23 10:26 Dose: 100 mls/hr Ceftriaxone Sodium 2,000 mg/ (Sodium Chloride) 50 mls @ 100 mls/hr IV Q24H [facility]; Protocol Last Infusion: 03/01/23 00:43 Dose: Infused Doxycycline Hyclate 100 mg/ (Sodium Chloride) 100 mls @ 100 mls/hr IV Q12H [facility]; Protocol Last Infusion: 03/01/23 13:05 Dose: Infused Nitroglycerin (Nitroglycerin 0.4 Mg Sublingual Tablet) 0.4 mg SUBLINGUAL Q5M PRN PRN Reason: chest pain Ondansetron HCl (Ondansetron 2 Mg/Ml Sdv 2 Ml) 4 mg IVP Q8H PRN PRN Reason: vomiting, or N/V if npo Last Admin: 02/28/23 22:46 Dose: 4 mg Pantoprazole Sodium (Pantoprazole Dr 40 Mg Tablet) 40 mg PO DAILY@08 [facility] Last Admin: 03/01/23 08:29 Dose: 40 mg Paroxetine HCl (Paroxetine 20 Mg Tablet) 10 mg PO DAILY [facility] Last Admin: 03/01/23 08:29 Dose: 10 mg Discontinued Medications Diphenhydramine HCl (Diphenhydramine 50 Mg/Ml Sdv 1ml) 25 mg IVP ONCE STA Stop: 02/28/23 22:53 Last Admin: 02/28/23 22:55 Dose: 25 mg Diphenhydramine HCl (Diphenhydramine 50 Mg/Ml Sdv 1ml) Confirm Administered Dose 50 mg .ROUTE .STK-MED ONE Stop: 02/28/23 22:55 Last Admin: 02/28/23 23:27 Dose: Not Given Diphenhydramine HCl (Diphenhydramine 50 Mg/Ml Sdv 1ml) 25 mg IVP ONCE ONE Stop: 03/01/23 01:15 Last Admin: 03/01/23 01:24 Dose: 25 mg Famotidine (Famotidine 20 Mg/2 Ml Inj) 20 mg IVP ONCE ONE Stop: 03/01/23 01:16 Last Admin: 03/01/23 01:24 Dose: 20 mg Famotidine (Famotidine 20 Mg/2 Ml Inj) Confirm Administered Dose 20 mg .ROUTE .STK-MED ONE Stop: 03/01/23 01:23 Last Admin: 03/01/23 01:52 Dose: Not Given Levofloxacin/Dextrose (Levaquin-D5w) 750 mg in 150 mls @ 100 mls/hr IV ONCE ONE; Protocol Stop: 02/28/23 19:32 Last Infusion: 03/01/23 00:45 Dose: Infused Doxycycline Hyclate 100 mg/ (Sodium Chloride) 100 mls @ 100 mls/hr IV Q12H [facility]; Protocol Last Infusion: 03/01/23 00:45 Dose: Infused Levofloxacin/Dextrose (Levaquin-D5w) 750 mg in 150 mls @ 100 mls/hr IV Q24H [facility]; Protocol Iohexol (Iohexol 350 Mg/Ml 500 Ml Btl (Per Ml)) 0 ml IV ONCE ONE Stop: 02/28/23 19:28 Last Admin: 02/28/23 19:27 Dose: 100 ml Allergies No Known Allergies Allergy (Verified 07/24/22 10:32) Home Medications atorvastatin 40 mg tablet 40 mg PO BEDTIME@209909/07/20 [History Confirmed 03/01/23] pantoprazole 40 mg tablet,delayed release 40 mg PO DAILY@08 09/07/20 [History Confirmed 03/01/23] albuterol sulfate 90 mcg/actuation aerosol inhaler 1 inh inhalation QID PRN Shortness Of Breath 06/11/22 [History Confirmed 03/01/23] paroxetine HCl 10 mg tablet 10 mg PO DAILY 06/11/22 [History Confirmed 03/01/23] losartan 25 mg tablet 25 mg PO DAILY 03/01/23 [History Confirmed 03/01/23] Discharge Plan Discharge Patient Disposition: Xfer Short-Term Hosp Condition: Stable Prescriptions: No Action atorvastatin 40 mg tablet 40 mg PO BEDTIME@2100 pantoprazole 40 mg tablet,delayed release (DR/EC) 40 mg PO DAILY@08 paroxetine HCl 10 mg Tablet 10 mg PO DAILY albuterol sulfate 90 mcg/actuation Hfa Aerosol Inhaler 1 inh INHALATION QID PRN (Reason: Shortness Of Breath) losartan 25 mg tablet 25 mg PO DAILY Referrals: Gordo Bradley DO [Primary Care Provider] - Patient Instructions: Opioid Safety Transfer Attestations Time Spent in Transfer Care: greater than 30 min Quality Metrics Clinical Quality Measures [ No reported AMI, CVA or VTE this stay] Coding Level of Care Code 11774 Total time (in minutes) for Discharge: 75 Diagnoses Fever R50.9 Syncope R55 Dyspnea R06.00 Bicytopenia D75.89 Transaminitis R74.01
--- NOTE | 2023-03-01 19:44 | PC.NURSE ---
Airvac called @193. Airvac accepted @1947, reported ETA 10 minutes .
--- NOTE | 2023-03-01 19:53 | USCV_ITS ---
Ant De La Paz Age: 77 Gender: M : 1945 Exam Date: 03/01/2023 03:06 Ordering Phys: Trevin Bose MD Technologist: DANISHA Exam Location: [facility] [place] Indication: syncope, history of sarcoidosis, febrile 101F, Never smoked. No DM. No hx of cardiac intervention per patient. BP: 137 / 88 HR: 86 Rhythm: Sinus Technical Quality: Adequate MEASUREMENTS (Male / Female) Normal Values 2D ECHO LV Diastolic Diameter PLAX 4.3 cm 4.2 - 5.9 / 3.9 - 5.3 cm LV Systolic Diameter PLAX 2.8 cm IVS Diastolic Thickness 1.6 cm 0.6 - 1.0 / 0.6 - 0.9 cm IVS Systolic Thickness 2.3 cm LVPW Diastolic Thickness 2.0 cm 0.6 - 1.0 / 0.6 - 0.9 cm LVPW Systolic Thickness 2.3 cm LVOT Diameter 1.8 cm LV Ejection Fraction 2D Teich 64.0 % LV Ejection Fraction MOD 2C 70.7 % LV Ejection Fraction 2C AL 73.4 % LA Diameter 3.5 cm LA Width 3.6 cm LA Height 3.8 cm RA Width 3.9 cm RA Height 4.7 cm Aorta at Sinotubular Diameter 4.0 cm IVC Diameter 1.8 cm M-MODE Aortic Annulus Diameter 4.0 cm LA Ao Ratio MM 0.8 MV E Point Septal Separation 0.6 cm DOPPLER AV Peak Velocity 124.0 cm/s LVOT Peak Velocity 103.0 cm/s AV Area Cont Eq vti 1.9 cm squared AV Area Cont Eq pk 2.1 cm squared MV Peak Velocity 101.0 cm/s MV Area PHT 3.0 cm squared Mitral E to A Ratio 0.6 MV E' Velocity 28.0 cm/s Mitral E to MV E' Ratio 7.2 Mitral E to LV E' Lateral Ratio 6.1 Mitral E to LV E' Septal Ratio 8.9 TR Peak Velocity 278.0 cm/s TR Peak Gradient 30.9 mmHg Right Atrial Pressure 5.0 mmHg Pulmonary Artery Systolic Pressu 35.9 mmHg PV Peak Velocity 94.0 cm/s RV Acceleration Time 0.1 s RV Ejection Time 0.3 s RV AcT/ET 0.2 FINDINGS Left Ventricle Normal left ventricular size, systolic function and wall thickness, with no regional wall motion abnormalities. Left ventricular ejection fraction is estimated at 70 %. Grade I diastolic dysfunction (abnormal relaxation filling pattern), normal to mildly elevated filling pressures. Right Ventricle Normal right ventricular size and systolic function. Right ventricular systolic pressure 35 mmHg. Right Atrium Normal right atrial size. Left Atrium Normal left atrial size. Mitral Valve Structurally normal mitral valve. No mitral valve stenosis. Mild eccentric mitral valve regurgitation. Aortic Valve Structurally normal trileaflet aortic valve. No aortic valve stenosis. Mild aortic valve regurgitation. Tricuspid Valve Structurally normal tricuspid valve. No tricuspid valve stenosis. Mild tricuspid valve regurgitation. Pulmonic Valve Structurally normal pulmonic valve. No pulmonary valve stenosis. Trace pulmonary valve regurgitation. Pericardium No pericardial effusion. Aorta Mildly dilated aortic root measured at 40 mm and ascending aorta measured at 42 mm IVC Normal IVC dimension with >50% respiratory change of the inferior vena cava. CONCLUSIONS 1. Normal left ventricular size, systolic function and wall thickness, with no regional wall motion abnormalities. Left ventricular ejection fraction is estimated at 70 %. Grade I diastolic dysfunction (abnormal relaxation filling pattern), normal to mildly elevated filling pressures. 2. Mild aortic valve regurgitation. 3. Mild eccentric mitral valve and mild tricuspid valve regurgitation. 4. Mildly dilated aortic root measured at 40 mm and ascending aorta measured at 42 mm. 5. No Prior similar studies to compare. Olivia Alvarado MD (Electronically Signed) Final Date: 01 March 2023 13:53 S
--- NOTE | 2023-03-01 19:53 | USCV_ITS ---
Ant De La Paz Age: 77 Gender: M : 1945 Exam Date: 03/01/2023 02:08 Ordering Phys: Trevin Bose MD Technologist: DANISHA Exam Location: [place] Indication: assess for DVT No history of DVT per patient. HISTORY: assess for DVT No history of DVT per patient. PROCEDURES: Venous duplex imaging was performed in bilateral lower extremities. The following venous structures were evaluated: common femoral vein, profunda vein, proximal portion of the greater saphenous vein, superficial femoral vein, and the popliteal vein. In addition, the posterior tibial veins were evaluated. FINDINGS: Normal 2-D Doppler and augmentation and compressibility throughout the lower extremity venous structures. Additional imaging through the proximal calf veins also reveals no thrombus. Limited evaluation of the greater saphenous vein is patent with no thrombus. CONCLUSIONS No DVT bilateral lower extremities. Dr. Geraldine Herrmann DO (Electronically Signed) Final Date: 01 March 2023 07:32 S
--- NOTE | 2023-03-01 19:54 | USCV_ITS ---
Ant De La Paz Age: 77 Gender: M : 1945 Exam Date: 03/01/2023 02:32 Ordering Phys: Trevin Bose MD Technologist: DANISHA [place] [facility] [place]: syncope, History of sarcoidosis, febrile 101F. Never smoked. No DM. Risk Factors: syncope, History of sarcoidosis, febrile 101F. Never smoked. No DM. prior CVA by CT Previous Vascular Surgery: Right Brachial BP: 137 / 88 Left Brachial BP: / Right Left Velocity (cm/s) Spectral Plaque Velocity (cm/s) Spectral Plaque Syst/Diast Broadening Syst/Diast Broadening 67.30/ 14.30 Min None Prox CCA 62.00 / 8.50 Mod None 58.40/ 9.90 Min None Mid CCA 66.80 / 13.40 Min None 62.90/ 16.30 Min None Distal CCA 55.00 / 6.40 Min None 45.30/ 15.80 Mod Blair Prox ICA 102.10/ 30.40 Mod Blair 64.10/ 17.90 Min Hetro Mid ICA 74.30 / 24.20 Mod Hetro 67.80/ 25.10 Min Homo Distal ICA 53.40 / 15.50 Min Homo 73.00 Min None ECA 65.70 Min None 1.01 ICA/CCA 1.53 Antegrade Vertebral Antegrade 33.60/ 9.60 cm/s 37.40/ 11.70 cm/s Tri Subclavian Tri 53.40 56.60 FINDINGS Comparison: none available. No significant elevation of systolic or diastolic velocities. Waveforms are normal. Mixture of calcified and noncalcified plaque in the bifurcations left greater than right. Antegrade vertebral arteries. CONCLUSIONS Bilateral ICA stenosis less than 50%. Mild carotid atherosclerosis. Dr. Geraldine Herrmann DO (Electronically Signed) Final Date: 01 March 2023 08:29 S
--- NOTE | 2023-03-01 20:19 | PC.NURSE ---
Airvac team on unit @2007. Pt left unit @2019 w/ airvac team @bedside.
[2023-03-04 14:44] LABS: Lyme AB Screen <0.90 index
[2023-03-05 17:09] LABS: RMSF IGG NOT DETECTED; RMSF IGM NOT DETECTED
[2023-03-05 17:20] LABS: E. Chaffeensis AB IGG <1:64; E. Chaffeensis AB IGM <1:20
[2023-03-07 05:01] LABS: Fibrinogen Degradation Product <5 mcg/mL (LESS THAN 5)
== END 2023-03-01 20:20 | disposition short-term general hospital (02) | DRG 312 ==
LOC: ER 17:48 → MEDSURG 20:58 → ICU 03-01 00:25
PROVIDERS: Internal Medicine; Admitting Provider Internal Medicine; Emergency Provider Family Medicine; PCP Internal Medicine; Visit Provider Internal Medicine
DX: R55 Syncope and collapse (principal); A93.8 Other specified arthropod-borne viral fevers; R50.9 Fever, unspecified; D86.0 Sarcoidosis of lung; I10 Essential (primary) hypertension; Z90.2 Acquired absence of lung [part of]; D69.6 Thrombocytopenia, unspecified; D50.9 Iron deficiency anemia, unspecified; L27.1 Localized skin eruption due to drugs and medicaments taken internally; T36.4X5A Adverse effect of tetracyclines, initial encounter; Z79.51 Long term (current) use of inhaled steroids; Z86.73 Personal history of transient ischemic attack (TIA), and cerebral infarction without residual deficits; E78.5 Hyperlipidemia, unspecified
CPT/HCPCS: 36415; 36416; 70450; 71045; 71275; 80053; 80074; 80503; 81001; 82533; 82607; 82728; 82962; 83010; 83540; 83550; 83605; 83615; 83735; 84145; 84443; 84478; 84484; 85014; 85025; 85045; 85362; 85378; 85384; 85610; 85730; 86140; 86618; 86666; 86757; 86880; 87040; 87486; 87581; 87633; 93005; 93306; 93880; 93970; 94640; 96365; 96372; 99285; G0378; J0696; J1200; J1644; J1956; J2405; J3490; J7030; J7613; Q9967

== ENCOUNTER 2023-06-05 11:52 | Outpatient (CLI) | payer MEDICARE, OTHER, SELFPAY ==
--- NOTE | 2023-06-05 11:58 | USCV_ITS ---
Ant De La Paz Age: 77 Gender: M : 1945 Exam Date: 06/05/2023 12:21 Ordering Phys: Gordo Bradley DO Technologist: CT Exam Location: [facility] [place]_ Indication: ectasia of ao BP: 137 / 81 HR: 54 Rhythm: Sinus Technical Quality: Adequate MEASUREMENTS (Male / Female) Normal Values 2D ECHO LV Chamber Size 4.9 cm RV Chamber Size 3.6 cm LVOT Diameter 2.1 cm LV Ejection Fraction MOD 2C 56.6 % LV Ejection Fraction 2C AL 58.7 % LA Diameter 3.3 cm LA Width 4.4 cm LA Height 4.6 cm RA Width 3.3 cm RA Height 5.0 cm Aorta at Sinotubular Diameter 3.0 cm IVC Diameter 1.3 cm M-MODE Aortic Annulus Diameter 3.7 cm LA Ao Ratio MM 0.8 MV E Point Septal Separation 1.0 cm DOPPLER AV Peak Velocity 101.0 cm/s LVOT Peak Velocity 87.0 cm/s AV Area Cont Eq vti 3.9 cm squared AV Area Cont Eq pk 2.9 cm squared MV E' Velocity 7.0 cm/s TR Peak Velocity 213.7 cm/s TR Peak Gradient 18.3 mmHg TV Peak E Velocity 56.0 cm/s Right Atrial Pressure 3.0 mmHg Pulmonary Artery Systolic Pressu 21.3 mmHg PV Peak Velocity 101.0 cm/s FINDINGS Left Ventricle Left ventricle is normal in size. LV systolic function is normal with EF 55 to 60%. No regional wall motion abnormalities are seen. Grade 1 diastolic dysfunction Right Ventricle Normal in size and function Right Atrium Normal in size Left Atrium Normal in size Mitral Valve Structurally normal mitral valve. Modearate mitral regurgitation. Aortic Valve Structurally normal aortic valve. Mild to moderate aortic regurgitation. No significant stenosis. Tricuspid Valve Mild tricuspid regurgitation. Pulmonary artery systolic pressure is normal. Pulmonic Valve Not well-visualized Pericardium Normal Aorta Ascending aorta is dilated with diameter of 4.16cm IVC Appears to be normal CONCLUSIONS LV systolic function is normal with EF 55 to 60%. Grade 1 diastolic dysfunction. Moderate mitral regurgitation. Mild to moderate aortic regurgitation Mild tricuspid regurgitation Ascending aorta is dilated with diameter of 4.16 cm. Compared to prior echocardiogram from 03/01/2023, no significant changes are seen Edy Downs MD (Electronically Signed) Final Date: 06 June 2023 10:19 S
== END 2023-06-05 11:53 | disposition home or self-care (01) ==
LOC: RAD 11:52
PROVIDERS: PCP Internal Medicine; Visit Provider Internal Medicine
DX: I77.810 Thoracic aortic ectasia (principal); I34.0 Nonrheumatic mitral (valve) insufficiency
CPT/HCPCS: 93306

== ENCOUNTER → 2023-07-17 14:34 | Outpatient (BNVA) | payer MEDICARE, OTHER, SELFPAY | PROVIDERS: PCP Internal Medicine; Visit Provider Internal Medicine Cardiovascular Disease | DX: R55 Syncope and collapse (principal); I49.1 Atrial premature depolarization; I49.3 Ventricular premature depolarization | CPT/HCPCS: 93242 ==

== ENCOUNTER 2024-03-13 14:37 | Outpatient (CLI) | payer OTHER, SELFPAY ==
--- NOTE | 2024-03-13 14:45 | USCV_ITS ---
Ant De La Paz Age: 78 Gender: M : 1945 Exam Date: 03/13/2024 15:21 Ordering Phys: Crescencio Hamilton MD ([email or web address]) Technologist: Exam Location: [facility] – [place] Indication: mr BP: 137 / 82 HR: 72 Rhythm: Sinus Technical Quality: Adequate MEASUREMENTS (Male / Female) Normal Values 2D ECHO LV Diastolic Diameter PLAX 4.1 cm 4.2 - 5.9 / 3.9 - 5.3 cm IVS Diastolic Thickness 1.1 cm 0.6 - 1.0 / 0.6 - 0.9 cm IVS Systolic Thickness 1.8 cm LVPW Diastolic Thickness 1.1 cm 0.6 - 1.0 / 0.6 - 0.9 cm LVPW Systolic Thickness 2.0 cm LV Ejection Fraction 2D Teich 63.3 % LV Ejection Fraction MOD 4C 70.7 % LV Ejection Fraction MOD 2C 57.2 % LV Ejection Fraction 2C AL 58.2 % RA Systolic Volume 4C AL 38.7 ml RA Systolic Volume 4C MOD 38.9 ml LA Sys Volume AL 47.3 cm cubed LA Sys Volume Index AL 24.7 cm cubed/m squared M-MODE LA Ao Ratio MM 0.7 AV Cusp Separation MM 2.4 cm DOPPLER AV Peak Velocity 90.0 cm/s LVOT Peak Velocity 67.0 cm/s MV Area PHT 2.4 cm squared Mitral E to A Ratio 1.0 TV Peak Velocity 243.0 cm/s TR Peak Velocity 290.0 cm/s TR Peak Gradient 33.6 mmHg TV Peak E Velocity 99.0 cm/s Right Atrial Pressure 3.0 mmHg Pulmonary Artery Systolic Pressu 36.6 mmHg PV Peak Velocity 124.0 cm/s FINDINGS Left Ventricle Normal left ventricular size, systolic function and wall thickness, with no regional wall motion abnormalities. Estimated ejection fraction 60%. Grade II/IV diastolic dysfunction, moderately elevated filling pressures. Right Ventricle The right ventricle is normal in size and function. Right Atrium The right atrium is normal in size. Left Atrium The left atrium is normal in size. Mitral Valve Moderately thickened mitral valve. No mitral valve stenosis. Severe mitral valve regurgitation. Aortic Valve Moderate aortic valve calcification. No aortic valve stenosis. Mild aortic valve regurgitation. . Tricuspid Valve Structurally normal tricuspid valve without significant stenosis or regurgitation. Pulmonary artery systolic pressure is normal. Pulmonic Valve Structurally normal pulmonic valve without significant stenosis. There is no pulmonic regurgitation. Pericardium Normal pericardium without effusion. Aorta Normal ascending aorta dimension. IVC The inferior vena cava appears normal. CONCLUSIONS Normal left ventricular size, systolic function and wall thickness, with no regional wall motion abnormalities. Estimated ejection fraction 60%. Grade II/IV diastolic dysfunction, moderately elevated filling pressures. Moderately thickened mitral valve. No mitral valve stenosis. Severe mitral valve regurgitation. Moderate aortic valve calcification. No aortic valve stenosis. Mild aortic valve regurgitation. . There is no pericardial effusion. Right atrial pressure is around 10 mm of mercury. Miko Shepherd MD (Electronically Signed) Final Date: 13 March 2024 18:33 S
== END 2024-03-13 14:38 | disposition home or self-care (01) ==
PROVIDERS: Absent Provider Internal Medicine Pulmonary Disease; PCP Internal Medicine; Visit Provider Internal Medicine Cardiovascular Disease
DX: I71.21 Aneurysm of the ascending aorta, without rupture (principal); I08.0 Rheumatic disorders of both mitral and aortic valves
CPT/HCPCS: 93306

== ENCOUNTER 2024-11-12 11:13 | Outpatient (CLI) | payer OTHER, SELFPAY ==
--- NOTE | 2024-11-12 11:20 | MR_ITS ---
WS: [id number] MRI HEAD WITH CONTRAST TECHNIQUE: Sagittal T1, T2 axial, T2 axial FLAIR, axial susceptibility weighted imaging, axial diffusion weighted images, and coronal T2 images were obtained. Pre and post-T1 axial and post T1 coronal images. ADC and FSPGR images. CLINICAL INFORMATION: MEMORY IMPAIRMENT COMPARISON: MRI 2017 FINDINGS: No evidence of restricted diffusion to suggest acute ischemia. The ventricular system and basilar cisterns are patent. Normal posterior fossa. Normal vascular flow voids at the skull base. No extra-axial fluid collections. Moderate small vessel changes with moderate parenchymal volume loss. Chronic infarct in the RIGHT parietal lobe with encephalomalacia and gliosis. No hemosiderin. Moderate to advanced atrophy involving the temporal lobes and hippocampal formations. Normal optic chiasm and pituitary infundibulum. No abnormal gadolinium enhancement. Normal dural venous sinuses. MR/MR head wo/w con [id number] IMPRESSION: 1. No evidence of restricted diffusion to suggest acute ischemia. 2. Moderate small vessel changes with moderate parenchymal volume loss progres sed since 2017. 3. Chronic infarcts in the RIGHT parasagittal parietal lobe and occipital lobe s with encephalomalacia and gliosis. 4. No abnormal gadolinium enhancement. 5. Moderate to advanced symmetric atrophy of the mesial temporal lobes and hip pocampal formations.
[2024-11-12] MEDS: gadobenate dimeglumine 20 mL vial IV (15:09)
== END 2024-11-12 11:14 | disposition home or self-care (01) ==
PROVIDERS: PCP Internal Medicine; Visit Provider Family Medicine
DX: R41.3 Other amnesia (principal); R93.0 Abnormal findings on diagnostic imaging of skull and head, not elsewhere classified; G93.89 Other specified disorders of brain; G31.89 Other specified degenerative diseases of nervous system
CPT/HCPCS: 70553

== ENCOUNTER 2025-05-27 04:27 | Observation (INO) | payer MEDICARE, SELFPAY ==
[2025-05-27] VITALS (10 sets, daily range): BP systolic 112–153; BP diastolic 73–86; PULSE 46–75; RESP 18; TEMP 36.4–37; O2SAT 94–98; BMI 22.1
--- OUTSIDE RECORDS SUMMARY | 2025-05-27 04:31 | XMS_ITS | Data Portability ---
Author Organization [facility], [facility] Address [address] [facility] [address] [place] [address] Care Team Providers Care Kier Hand Name Role Phone SONALI TORRES Primary Care Provider Assessment Encounter Date Assessment Date Assessment LastModified by Organization Details LastModified Time 02/22/2025 02/22/2025 f/u 1 month after starting the patch. [email or web address] Not available 02/22/2025 10:40:02 Plan of Treatment Reminders Order Date Submit Date Provider Last Modified By Organization Details Last Modified Time Details Appointments OFFICE VISIT MELISSA 2025 09:00A M Sonali Torres MD Not available Not available Not available Lab None recorded. Referral None recorded. Procedures None recorded. Surgeries None recorded. Imaging US, duplex, carotid artery - 68586 2024 025 [facility], [address] [place] [address], [address], 12/03/2024 11:25:05 Medication Orders rivastigm ine 4.6 mg/24 hour transderm al patch 2024 025 [facility], [address] [place] [address], [address], 03/26/2025 12:33:36 donepezil 10 mg tablet 2024 025 [facility], [address] [place] [address], [address], 04/07/2025 12:03:59 galantami ne 4 mg tablet 2024 025 [facility], [address] [place], [address], 01/21/2025 10:01:44 Patient TargetsNo targets recorded. Patient InstructionsNo instructions recorded. Reason for Referral None Reported. Results Created Date Observation Date Name Description Value Unit Range Abnormal Flag Note LastModifiedBy Organization Detail LastModifiedTime 10/27/19 25 09/10/2016 MRI, brain + brain stem, w/ contr ast No observ ation record ed. [address], [address], 10/26/2024 15:59:29 11/13/19 25 11/12/2024 MRI, brain , w/ contr ast No observ ation record ed. [address] [place], [address], 11/16/2024 11:20:39 12/04/19 25 12/02/2024 US, duple x, carot id arter y No observ ation record ed. [address] [place], [address], 12/04/2024 13:10:33 Result Notes None recorded. Problems Name Problem SNOMED Code Status Onset Date Resolution Date Notes Provider Name and Address Organization Details Recorded Time Hyperglycemia 17608513 Active 2023 PAN ludwig [facility] 4 10:26:07 Essential hypertension 32763363 Active 2023 PAN ludwig [facility] 4 14:55:39 Pulmonary sarcoidosis 22053764 Active 2023 PAN ludwig [facility] 5 09:02:13 Mixed anxiety and depressive disorder 286619177 Active 2024 PAN SALAZAR [facility] 09:04:20 Hyperlipidemia 78356731 Active 2024 PAN SALAZAR [facility] 09:05:01 Thrombocytopen ic disorder 777848804 Active 2024 PANWill SALAZAR [facility] 11:30:26 Memory impairment 982362686 Active 2024 PAN MARIE [facility], [facility] 11:30:26 Cerebrovascula r disease 86058781 Active 2024 Kaila Benson [facility], [facility] 10:29:57 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 Procedures Surgical History Date Name Laterality Status Provider Name and Address Organization Details Recorded Time 5 colonoscopy completed [facility] 10/12/2024 09:13:32 repair of inguinal hernia completed [facility] [place] [facility] [place] 07/07/2024 10:28:47 arthroscopy of left knee joint completed [facility] [place] [facility] [place] [facility] 07/07/2024 10:29:07 partial repair of rotator cuff completed [facility] [place] [facility] [place] 07/07/2024 10:29:34 biopsy of lung completed [facility] [place] [facility] [place] 07/07/2024 10:30:03 vasectomy completed Kaila Kelley [facility], [facility] 10/12/2024 09:12:49 Imaging Results None recorded. Procedure Notes None recorded. Medical Equipment None Reported. Allergies Allergen ID Allergen Name Allergen Category Reaction Reaction Severity Criticality Documentation Date Start Date Code Code System Note Provider Name and Address Organization Details Recorded Time 64066 Product containin g angiotens in-conver ting enzyme inhibitor (product) medicatio n Not available Not available Not available 07/07/2024 68719 009 SNOMED contr aindi cated in sarco idosi s due to findi ngs of incre ased morta lity lena red to ARB's Sonali Torres MD [address] [place] [address], [phone] , [facility] 4 10:40:51 30324 rivastigm ine medicatio n Not available Not available Not available 04/09/2025 20727 9 RxNorm bizar re dream s Kaila Benson [facility], [facility] 5 12:55:02 Medications Name Sig Start Date Stop Date Status Note LastModified by Organization Details LastModified Time losartan 50 mg tablet TAKE 1 TABLET BY MOUTH TWICE DAILY active Not Available Not Available No t Available atorvasta tin 40 mg tablet TAKE 1 TABLET BY MOUTH EVERY DAY active Not Available Not Available No t Available prednison e 10 mg tablet TAKE FIVE TABLETS BY MOUTH EVERY DAY FOR 3 DAYS, FOUR TABS FOR THREE DAYS, THREE TABS FOR THREE DAYS, TWO TABS FOR THREE DAYS, ONE TAB FOR THREE DAYS, THEN STOP 09/29 completed Not Available Not Available Not Available doxycycli ne hyclate 100 mg capsule take 1 capsule BY MOUTH TWICE DAILY 07/07 completed Not Available Not Available Not Available paroxetin e 10 mg tablet TAKE 1 TABLET BY MOUTH EVERY DAY active Not Available Not Available No t Available donepezil 5 mg tablet TAKE 1 TABLET BY MOUTH EVERY DAY 02/22 completed Not Available Not Available Not Available donepezil 10 mg tablet TAKE 1 TABLET BY MOUTH EVERY DAY active Not Available Not Available No t Available prednison e 20 mg tablet TAKE 1 TABLET BY MOUTH EVERY DAY 07/07 completed Not Available Not Available Not Available galantami ne 4 mg tablet TAKE 1 TABLET BY MOUTH TWICE DAILY WITH BREAKFAS T AND EVENING MEAL 01/20 completed Not Available Not Available Not Available amlodipin e 2.5 mg tablet TAKE 1 TABLET BY MOUTH EVERY DAY 11/20 completed Not Available Not Available Not Available aspirin 81 mg tablet,de layed release Take 1 tablet every day by oral route. active Not Available Not Available No t Available alprazola m 0.5 mg tablet TAKE 1 TABLET BY MOUTH 30 TO 45 minutes prior TO procedur e you will need a stunt driver TO take you home 11/12 completed Not Available Not Available Not Available doxycycli ne monohydra te 100 mg capsule 09/29 completed Not Available Not Available Not Available pantopraz ole 40 mg tablet,de layed release TAKE 1 TABLET BY MOUTH EVERY DAY FOR STOMACH active Not Available Not Available No t Available oseltamiv ir 75 mg capsule take 1 capsule BY MOUTH TWICE DAILY 07/07 completed Not Available Not Available Not Available triamcino lone acetonide 0.1 % topical ointment apply TWICE DAILY TO lips 07/07 completed Not Available Not Available Not Available losartan 25 mg tablet TAKE 1 TABLET BY MOUTH EVERY DAY 06/23 completed Not Available Not Available Not Available albuterol sulfate HFA 90 mcg/actua tion aerosol inhaler Inhale 2 puffs every 4 hours by inhalati on route as needed. active Not Available Not Available No t Available doxycycli ne hyclate 100 mg tablet TAKE 1 TABLET BY MOUTH TWICE DAILY 09/29 completed Not Available Not Available Not Available amoxicill in 875 mg-potass ium clavulana te 125 mg tablet TAKE ONE TABLET BY MOUTH TWICE DAILY 09/29 completed Not Available Not Available Not Available rosuvasta tin 40 mg tablet TAKE 1 TABLET BY MOUTH EVERY DAY active Not Available Not Available No t Available aspirin daily 07/07 completed Not Available Not Available Not Available alprazola m two times daily, as needed 07/07 completed for stress Not Available Not Available Not Available Symbicort 160 mcg-4.5 mcg/actua tion HFA aerosol inhaler INHALE TWO PUFFS TWICE DAILY, RINSE MOUTH with water AFTER USE. DO not swallow 12/10 /2024 completed Not Available Not Available Not Available rivastigm ine 4.6 mg/24 hour transderm al patch APPLY ONE PATCH TO SKIN EVERY DAY active Not Available Not Available No t Available OptiChamb er Xena C spacer USE TWICE DAILY active Not Available Not Available No t Available Breztri Aerospher e 160 mcg-9mcg- 4.8mcg/ac tuation HFA aerosol inhaler INHALE TWO PUFFS TWICE DAILY active Not Available Not Available No t Available losartan potassium (bulk) daily 03/27 completed cs/smf; 85032; Recorded 08/15/19 12:18PM by Albertina Finn RN (Authori winston through Gordo Bradley DO), Refill Request; Refill Quantity : 90; Tablet; Not Available Not Available Not Available Vitals Date Recorded Body height Body mass index (BMI) Body weight Heart rate Oxygen saturation Oxygen saturation in Arterial blood by Pulse oximetry Respiratory rate Body temperature Systolic And Diastolic Provider Name and Address Organization Details Last Updated DateTime 5 175.26 cm 22.2 kg/m2 81669.8 6 g 63 /min 96 % 96 % 16 /min 97.4 [degF] 98/64 mm[Hg] Danika Manriquez [facility] 5 11:54:50 Date Recorded Body height Body mass index (BMI) Body weight Body temperature Heart rate Oxygen saturation Oxygen saturation in Arterial blood by Pulse oximetry Systolic And Diastolic Provider Name and Address Organization Details Last Updated DateTime 5 175.26 cm 21.3 kg/m2 79284.3 g 97.4 [degF] 55 /min 96 % 96 % 128/70 mm[Hg] [facility] 5 10:40:29 Date Recorded Body height Body mass index (BMI) Body weight Body temperature Heart rate Oxygen saturation Oxygen saturation in Arterial blood by Pulse oximetry Systolic And Diastolic Provider Name and Address Organization Details Last Updated DateTime 5 175.26 cm 21.9 kg/m2 19516.6 7 g 97.5 [degF] 51 /min 96 % 96 % 120/68 mm[Hg] [facility] 5 10:11:05 Date Recorded Body height Body mass index (BMI) Body weight Body temperature Heart rate Oxygen saturation Oxygen saturation in Arterial blood by Pulse oximetry Systolic And Diastolic Provider Name and Address Organization Details Last Updated DateTime 5 175.26 cm 22.2 kg/m2 99866.8 6 g 97.6 [degF] 61 /min 98 % 98 % 125/60 mm[Hg] PAN SALAZAR [facility] 5 09:59:34 Social History Question Answer Notes LastModified by [employer] Details LastModified Time Tobacco Smoking Status Never Smoker PAN MARIE [facility] 07/07/2024 10:28:38 What Was The Date Of Your Most Recent Tobacco Screening? 03/26/2025 [email or web address] Information not available 03/26/2025 Sex: Unknown Functional Status Question Answer Note LastModified by [employer] Details LastModified Time Do you use any illicit or recreational drugs? No [email or web address] Information not available 07/07/2024 Do you or have you ever used any other forms of tobacco or nicotine? No [email or web address] Information not available 07/07/2024 What is your level of alcohol consumption? None Information not available 07/07/2024 Do you or have you ever used any nicotine-free cigarettes, vape, or chewing tobacco? No [email or web address] Information not available 07/07/2024 Mental Status None recorded. Family History Relationship Description Onset Age of this Age Resolved Age Notes LastModified by Organization Details LastModified Time Mother Malignant neoplasm of brain [email or web address] Not available 07/07 10:27:12 Father Coronary atherosclero sis [email or web address] Not available 07/07 10:27:32 Brother Coronary atherosclero sis [email or web address] Not available 07/07 10:27:32 Son Leukemia [email or web address] Not availab le 07/07/2024 10:28:05 Maternal Grandmother Diabetes mellitus [email or web address] Not available 07/07 10:28:18 Medical History No medical history recorded. Immunizations Vaccine Type Date Status Note Provider Nam e and Address Organization Details Recorded Time zoster recombinant 5 completed PAN ludwig, [facility] 12/28/2024 11:22:44 zoster recombinant 5 completed PAN ludwig, [facility] 03/26/2025 10:14:53 COVID-19, mRNA, LNP-S, PF, 30 mcg/0.3 mL dose 1 completed PAN ludwig, [facility] 07/07/2024 10:23:09 COVID-19, mRNA, LNP-S, PF, 30 mcg/0.3 mL dose 1 completed PAN ludwig, [facility] 07/07/2024 10:23:09 COVID-19, mRNA, LNP-S, PF, 30 mcg/0.3 mL dose 1 completed PAN ludwig, [facility] 07/07/2024 10:23:09 Tdap 7 completed PAN ludwig, [facility] 07/07/2024 10:23:09 zoster live 7 completed PAN ludwig, [facility] 07/07/2024 10:23:09 Influenza, split virus, trivalent, preservative 2 completed PAN ludwig, [facility] 07/07/2024 10:23:09 Td (adult), 2 Lf tetanus toxoid, preservative free, adsorbed 2 completed PAN ludwig, [facility] 07/07/2024 10:23:09 Influenza, split virus, quadrivalent, PF 1 completed PAN ludwig, [facility] 07/07/2024 10:23:09 Influenza, high-dose, quadrivalent, PF 3 completed Not Available [facility] 03/26/2025 09:30:16 COVID-19, mRNA, LNP-S, PF, junior-sucrose, 30 mcg/0.3 mL 3 completed Not Available [facility] 03/26/2025 09:30:16 Influenza, recombinant, trivalent, PF 4 completed Not Available [facility] 03/26/2025 09:30:16 RSV, bivalent, protein subunit RSVpreF, diluent reconstituted, 0.5 mL, PF 4 completed Not Available [facility] 03/26/2025 09:30:16 Past Encounters Encounter ID Performer Location Encounter Start Date Encounter Closed Date Diagnosis/Indication Diagnosis SNOMED-CT Code Diagnosis ICD10 Code Diagnosis IMO Codes Diagnosis Note [id number] Gordo Bradley DO 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 [address] [place] [address] 5 03/27/2023 11:01:36 03/27/2023 19:32:10 Acute bacterial bronchitis 067644948 J20.9 Essential hypertension 98199856 I10 Mixed anxi ety and depressive disorder 563915814 F41.8 [id number] Gordo Bradley DO [facility] ([facility] [address] [place] [address] 5 09/17/2023 10:18:49 09/18/2023 12:18:47 Fatigue 06549496 R53.83 Glucose le wyatt outside reference range 678044776 R73.09 Screening for malignant neoplastic disease 53312962 Z12.5 Hyperlipidemia 58058532 E78.5 [id number] Gordo Bradley DO [facility] ([facility]) [address] [place], [place] [address] 09/30/2023 10:04:28 09/30/2023 10:49:49 Acute bacterial bronchitis 395618813 J20.9 Hyperglycemia 41877386 R 73.9 Mixed anxi ety and depressive disorder 971776277 F41.8 [id number] Gordo Bradley DO [facility] ([facility]) [address] [place] [phone] 03/24/2024 11:43:06 03/25/2024 11:58:05 Essential hypertension 23009035 I10 Glucose le wyatt outside reference range 877825052 R73.09 [id number] Gordo BradleyDO [facility] ([facility]) [address] [place], [place] [address] 04/01/2024 09:25:31 04/01/2024 10:06:39 Sarcoidosis 57766933 D86.9 Mitral valve prolapse 40 6519887 I34.1 Hyperglycemia 03121780 R 73.9 [id number] Sonali Torres MD [facility] ([facility]) [address] [place] [phone] 07/07/2024 10:09:04 07/07/2024 12:55:40 Essential hypertension 59614089 I10 Pulmonary sarcoidosis 24 131095 D86.0 [id number] Sonali Torres MD [facility] ([facility]) [address] [place], [place] [phone] 10/07/2024 10:01:11 10/08/2024 07:24:56 Essential hypertension 57437595 I10 Hyperglycemia 86391807 R 73.9 Screening for malignant neoplasm of prostate 280464397 Z12.5 [id number] Sonali Torres MD 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 ([facility]) [address] [place] [id number] 11/12/2024 11:17:36 11/12/2024 13:48:53 Malignant neoplasm of skin 494134254 C44.90 61037 sutures removedsut ures were placed by his dermatolog ist and not this provider. [id number] Sonali Torres MD [facility] ([facility]) [address] [place] [phone] 5 11/20/2024 11:46:31 11/20/2024 12:39:25 Senile dementia 09671460 G30.1 F02.B0 7672653568 i recommende d a referral to a dementia center for more thorough evaluation of subtype to help understand how things may change with time. things to watch for etc. Cerebrovas cular disease 87376661 I67.9 [id number] echo pending next week. [id number] Sonali Torres MD [facility] [address] [place] [phone] 5 12/02/2024 12:35:47 12/04/2024 13:34:40 [id number] Sonali Torres MD [facility] [address] [place] [id number] 5 12/28/2024 10:27:17 01/04/2025 11:19:43 Senile dementia 79131675 G30.1 F02.B0 7801384322 Requires v aricella vaccination 189211599 Z23 053857 Memory impairment 624041 006 R41.3 [id number] Sonali Torres MD [facility] ([facility]) [address] [place] [id number] 02/22/2025 09:42:20 03/01/2025 12:11:42 Memory impairment 062098420 R41.3 Requires v aricella vaccination 115479420 Z23 679220 [id number] Sonali Torres MD 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 (MEDICARE) Ant De La Paz [id number] Ant De La Paz 04/02/2024 1 [facility] SELECT - DOS PRIOR TO 2024 (PPO) Ant De La Paz [id number] Ant De La Paz 04/02/2024 1 [place]IC[place]: [place] Ant De La Paz [id number] Ant De La Paz 04/01/2025 1 [facility] (MEDICARE REPLACEMENT/A DVANTAGE - PPO) [id number] Ant De La Paz [id number] Ant De La Paz 04/02/2024 1 [facility] (MEDICARE SUPPLEMENT) [id number] Ant De La Paz [id number] Ant De [place] Paz Notes Date Note Type Note Provider Name and Address Organization Details Recorded Time 11/20/2024 text/html Hypertension IM/FMReported by PatientHPIFor quality, patient reportsfatigue. For onset/timing, patient reportsgradual onset. For severity, (they have not checked his blood pressure recently. he quit having headaches when his losartan was increased.). go over mri todaypatient's blood pressure and dropped from last visit, his reports he has been feeling tired and less energy than normal. i will d/c the amlodipine and have them report bp in 1 week or sooner if worse. Sonali Torres MD [address] [place] [address], [phone], [facility] [place] 11/20/2024 12:36:16 12/28/2024 text/html Hypertension IM/FMReported by PatientHPIFor quality, patient reportsfatigue. For onset/timing, patient reportsgradual onset. For associated symptoms, patient reportsno shortness of breath,no headaches, andno chest pain. For severity, (117/67 at last check).ROS as noted in the HPI Pt is here today for a recheck on his memory and blood pressure. They have not noticed any memory changes recently. He needs a refill of his donepezil Sonali Torres MD [address] [place] [address], [phone], [facility] 01/02/2025 13:34:49 02/22/2025 text/html Hypertension IM/FMReported by PatientHPIFor quality, patient reportsfatigue. For onset/timing, patient reportsgradual onset. For associated symptoms, patient reportsno shortness of breath,no headaches, andno chest pain. For severity, (128/70 at last check).ROS as noted in the [facility] Pt is here today for a recheck on his memory and blood pressure. He was here to f/u on his rivastigmine, but he has not been able to get his patches approved by insurance yet. He didn't feel right when taking the capsules. They have not noticed any memory changes recently. Sonali Torres MD [address] [place] [address], [phone], [facility] 02/22/2025 10:45:37 03/26/2025 text/html ROS as noted in the [facility] Memory impairment: 10 week f/u after starting the rivastigmine patch. Patient's is wondering if the patch would cause any personality changes. Pt has also been having weird dreams. it is more that he is acting out dreams. Sonali Torres MD [address] [place] [address], [phone], [facility] 03/26/2025 10:32:27
--- OUTSIDE RECORDS SUMMARY | 2025-05-27 04:31 | XMS_ITS | Clinical Summary ---
[facility] Address [address] [place] [address] Care Team Providers Care Netting Inspector Name Role Phone Nanette Ohara MD, Hugh Manning Primary Care Provider Allergies No known active allergies Medications losartan-hydrochl orothiazide (HYZAAR) 50-12.5 mg tablet 4 Active albuterol (PROVENTIL,VENTOL IN) 2.5 mg /3 mL (0.083 %) Solution for Nebulization Take 3 mL (2.5 mg) by inhalation every 8 hours as needed for Shortness of Breath. 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 Gender Identity Not on file Sexual Orientation Not on file Occupation Industry Job Start Date Job End Date Not on file Not on file Not on file Not on file Last Filed Vital Signs Vital Sign Reading Time Taken Comments Blood Pressure 108/67 07/06/2016 11:49 PM CHIEF OPERATING OFFICER Pulse 64 03/18/2014 10:45 AM CDT Temperature 36.9 C (98.5 F) 07/06/2016 5:31 PM CHIEF OPERATING OFFICER Respiratory Rate 16 07/06/2016 11:49 PM CHIEF OPERATING OFFICER Oxygen Saturation 96% 07/06/2016 11:49 PM CHIEF OPERATING OFFICER Inhaled Oxygen Concentration - - Weight 72.6 kg (160 lb) 07/06/2016 3:51 PM CHIEF OPERATING OFFICER Height 175.3 cm (5' 9 ) 07/06/2016 3:51 PM CHIEF OPERATING OFFICER Body Mass Index 23.63 07/06/2016 3:51 PM CHIEF OPERATING OFFICER Plan of Treatment Health Maintenance Due Date Last Done Comments PNEUMOCOCCAL VACCINE 50+ YEARS (1 of 1 - PCV) 10/14/18 96 ZOSTER VACCINE (1 of 2) 10/15/1995 DTAP/TDAP/TD VACCINES (1 - Tdap) 02/27/2002 02/27/20 02 RSV VACCINE (60+ or ) (1 - 1-dose 75+ series) 2020 INFLUENZA VACCINE (#1) 2025 Insurance MEDICARE PART A AND B [facility] [place] [address] [address] DEEDEE GUILLAUME [id number] Care Teams Netting Inspector Relationship Specialty Start Date End Date Hugh Fitzpatrick Jr., MD [address] [address] PCP - General Family Practice 07/06/16
--- OUTSIDE RECORDS SUMMARY | 2025-05-27 04:31 | XMS_ITS | Encounter Summary ---
Author Organization [facility] Address 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 Gender Identity Not on file Sexual Orientation Not on file documented as of this encounter Plan of Treatment Upcoming Encounters Date Type Department Care Team (Late st Contact Info) Description 07/06/2025 2:20 PM RENTAL MANAGER Office Visit [facility] [address] [facility] [address] [place] [address] Dahiana Huddleston NP [address] [facility] [address] [place] [address] documented as of this encounter Visit Diagnoses Not on filedocumented in this encounter Care Teams Exhibitions Curator Relationship Specialty Start Date End Date Hugh Fitzpatrick Jr., MD [address] [address] PCP - General Family Practice 07/06/16 documented as of this encounter
--- OUTSIDE RECORDS SUMMARY | 2025-05-27 04:31 | XMS_ITS | Clinical Summary ---
Author Organization [facility] Address [address] [facility] Attn: [place] [address] Care Team Providers Care Regulator Tester Name Role Phone Nanette Ohara MD, Hugh Manning Primary Care Provider Allergies No known active allergies Medications aspirin (ECOTRIN EC) 81 mg Tablet, Delayed Release (E.C.) Take 81 mg by mouth daily. Active budesonide-form oteroL (SYMBICORT) 160-4.5 mcg/actuation HFA Aerosol Inhaler Take 2 Puffs by inhalation 2 times daily. 3 Active pantoprazole (PROTONIX) 40 mg Tablet, Delayed Release (E.C.) Take 40 mg by mouth daily. 4 Active PARoxetine HCl (PAXIL) 10 mg tablet Take 1 Tablet by mouth daily. 4 Active rosuvastatin (CRESTOR) 40 mg tablet Take 40 mg by mouth daily. Active Adela Mccallum [facility] Spacer USE TWICE DAILY Acti ve donepeziL (ARICEPT) 5 mg tablet Take 5 mg by mouth daily. Active Breztri Aerosphere 160 mcg-9mcg-4.8mcg /actuation HFA aerosol inhaler INHALE TWO PUFFS TWICE DAILY Active losartan (COZAAR) 50 mg tablet Take 50 mg by mouth 2 times daily. Active Active Problems Problem Noted Date Diagnosed Date Mitral valve prolapse 04/27/2024 Encounters Date Type Department Care Team Description 05/25/2025 External Device Data STL ABSTRACTION Provider, Abstract 05/19/2025 External Device Data STL ABSTRACTION Provider, Abstract 05/18/2025 External Device Data STL ABSTRACTION Provider, Abstract 04/13/2025 External Device Data STL ABSTRACTION Provider, Abstract 04/13/2025 External Device Data STL ABSTRACTION Provider, Abstract 03/16/2025 External Device Data STL ABSTRACTION Provider, Abstract 03/16/2025 External Device Data STL ABSTRACTION Provider, Abstract 03/03/2025 External Device Data STL ABSTRACTION Provider, Abstract 03/02/2025 External Device Data STL ABSTRACTION Provider, Abstract from Last 3 Months Immunizations Immunization Administration Dates Next Due (TDVAX)(7 YRS UP) TETANUS AN D DIPHTHERIA TOXOIDS, ADSORBED (2 LF OF TETANUS TOXOID AND 2 LF OF DIPHTHERIA TOXOID), 0.5ML (PF), IM 02/26/2002 Family History Relation Name Status Comments Maternal Grandfather Maternal Grandmother Paternal Grandfather Paternal Grandmother Social History Tobacco Use Types Packs/Day Years Used Date Smoking Tobacco: Never Smokeless Tobacco: Never Tobacco Cessation:Counseling Given: Not Answered Sex and Gender Information Value Date Recorded Sex Assigned at Not on file Legal Sex Male 8:27 AM COMMUNICATIONS AGENT Gender Identity Not on file Sexual Orientation Not on file Last Filed Vital Signs Vital Sign Reading Time Taken Comments Blood Pressure 146/70 01/26/2025 11:03 AM CDT Pulse 54 01/26/2025 11:03 AM CDT Temperature 36.4 C (97.6 F) 01/26/2025 10:48 AM CDT Respiratory Rate 16 05/28/2024 1:44 PM CDT Oxygen Saturation 97% 01/26/2025 10:48 AM CDT Inhaled Oxygen Concentration - - Weight 66.8 kg (147 lb 3.2 oz) 01/26/2025 10:48 AM CDT Height 172.7 cm (5' 8 ) 01/26/2025 10:48 AM CDT Body Mass Index 22.38 01/26/2025 10:48 AM CDT Plan of Treatment Upcoming Encounters Date Type Department Care Team (Late st Contact Info) Description 07/06/2025 2:20 PM COMMUNICATIONS AGENT Office Visit [facility] [address] [facility] [address] [place] [address] Flaquito Dahiana Thurmane, EZE [address] [facility] [address] [place] [address] Health Maintenance Due Date Last Done Comments PNEUMOCOCCAL VACCINE 50+ YEA RS (1 of 2 - PCV) 1964 RSV VACCINE (60+ or ) (1 - 1-dose 75+ series) 2020 ZOSTER VACCINE (3 of 3) 02/22/2025 12/28/2024, 05/09 INFLUENZA VACCINE (#1) 2025 , 05/10/2023, 05/04/2022, Additional history exists COVID-19 Vaccine (5 - 2024-2 6 season) 2025 05/10/2023, 05/02/2021, 09/23/2020, Additional history exists DTAP/TDAP/TD VACCINES (2 - T d or Tdap) 12/04/2026 12/04/2016, 02/26/2002 COLORECTAL SCREENING Discontinued 07/29/2014 Colorectal Cancer Screening Discontinued FIT-DNA Q 3 years Discontinued FIT/FOBT Q 1 year Discontinued Flex Sig/CT Colonography Q 5 years Discontinued Insurance Care Teams Regulator Tester Relationship Specialty Start Date End Date Hugh Fitzpatrick Jr., MD [address] [address] PCP - General Family Practice 07/06/16
--- OUTSIDE RECORDS SUMMARY | 2025-05-27 04:31 | XMS_ITS | Encounter Summary ---
Author Organization [facility] Address [address] [place] [address] Care Team Providers Care Managed Services Consultant Name Role Phone Nanette Ohara MD, Hugh Manning Primary Care Provider Encounter Details Date Type Department Care Team (Late st Contact Info) Description 05/16/2006 Outpatient Historical [facility] Derm[facility]- 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
--- NOTE | 2025-05-27 04:35 | ECG_ITS ---
[facility] Date: 2025-05-27 Pat Name: Ant De La Paz Department: Room: Gender: Male Seam Finisher: : 1945 Requested By: Hugo Cheung Order Number: [id number] Odell MD: uHber James M.D. Measurements Intervals [place] Rate: 39 P: 61 [place]: 204 QRS: 42 QRSD: 98 T: 58 QT: 463 QTc: 377 Interpretive Statements SINUS BRADYCARDIA POSSIBLE RIGHT VENTRICULAR CONDUCTION DELAY [RSR (QR) IN V1/V2] POSSIBLE LEFT VENTRICULAR HYPERTROPHY [VOLTAGE CRITERIA PLUS LAE OR QRS WIDENING] EARLY REPOLARIZATION Compared to ECG 03/01/2023 02:02:04 Sinus arrhythmia no longer present EARLY REPOLARIZATION IS NEW SINUS BRADYCARDIA IS NEW Electronically Signed On 05-29-2025 20:38:57 CDT by Huber James M.D. [email or web address] [id number]
--- NOTE | 2025-05-27 04:49 | XRR_ITS ---
PROCEDURE INFORMATION: Exam: XR Chest Exam date and time: 05/27/2025 5:34 AM Age: 79 years old Clinical indication: Pain; Angina pectoris; Additional info: Cp TECHNIQUE: Imaging protocol: Radiologic exam of the chest. Views: 1 view. COMPARISON: CR (CHEST, ) 03/01/2023 12:04 AM FINDINGS: Lungs: Mild elevation of the right hemidiaphragm with chronic atelectasis or fibrosis in the right middle lobe unchanged. Pleural spaces: Unremarkable. No pleural effusion. No pneumothorax. Heart/Mediastinum: Extensive lymph node calcifications. Calcified granuloma on each side. No change in the heart or mediastinum. Bones/joints: Unremarkable. XR/XR chest 1V portable [id number] IMPRESSION: No acute findings. Stable chronic findings.
[2025-05-27 04:59] LABS: Hematocrit 38.8 % (37-53); Hemoglobin 13.00 g/dL (11.27-16.99); Mean Corpuscular HGB Conc 33.5 g/dL (30-55); Mean Corpuscular Hemoglobin 31.0 pg (27-33); Mean Corpuscular Volume 92.4 fl (82-101); Nucleated Red Blood Cells % 0 %; Platelet Count 151 10^3/cmm (157-399); Red Blood Count 4.20 10^6/uL (3.85-5.65); White Blood Count 6.10 10^3/uL (3.29-11.43)
[2025-05-27] MEDS: magnesium sulfate premix 2 GM/50 ML PIGGYBACK IV (05:08)
[2025-05-27 05:14] LABS: Lactic Sepsis W/Reflex 0.7 mmol/L (0.5-2.2)
[2025-05-27 05:15] LABS: Troponin(5th) Baseline 17 ng/L (0-15)
[2025-05-27] MEDS: atropine 0.1 mg/mL Syr 10 mL 1 MG IVP (05:21)
--- NOTE | 2025-05-27 05:24 | ECG_ITS ---
[facility] Test Date: 2025-05-27 Pat Name: Ant De La Paz Department: Room: 101 Gender: Male Elementary Secretary: : 1945 Requested By: Hugo Cheung Order Number: [id number] Jsoe R MD: KASSIE TEMPLETON Measurements Intervals [place] Rate: 80 P: 0 AK: 0 QRS: 40 QRSD: 90 T: 60 QT: 396 QTc: 458 Interpretive Statements Sinus rythm with PACs POSSIBLE RIGHT VENTRICULAR CONDUCTION DELAY [RSR (QR) IN V1/V2] MINIMAL VOLTAGE CRITERIA FOR LVH, CONSIDER NORMAL VARIANT [MEETS CRITERIA IN ONE OF: R(aVL), S(V1), R(V5), R(V5/V6)+S(V1)] ABNORMAL RHYTHM ECG Compared to ECG 05/27/2025 04:33:45 Sinus bradycardia no longer present Electronically Signed On 05-29-2025 21:18:12 CDT by KASSIE TEMPLETON [email or web address] [id number]
--- NOTE | 2025-05-27 05:25 | W.ED.CHESTPA ---
HPI - Chest Pain General: Chief Complaint: Chest Pain Stated Complaint: Disoriented, CP Time Seen by Provider: 05/27/25 05:12 Related Data Home Medications ?Medication ?Instructions ?Recorded ?Confirmed atorvastatin 40 mg tablet 40 mg PO BEDTIME@2100 09/07/20 03/24/24 pantoprazole 40 mg tablet,delayed 40 mg PO DAILY@08 09/07/20 03/24/24 release albuterol sulfate 90 mcg/actuation 1 inh inhalation QID PRN Shortness 06/11/22 03/24/24 aerosol inhaler Of Breath paroxetine HCl 10 mg tablet 10 mg PO DAILY 06/11/22 03/24/24 losartan 25 mg tablet 25 mg PO DAILY 03/01/23 03/24/24 aspirin 81 mg tablet,delayed 81 mg PO DAILY 08/20/23 03/24/24 release Allergies Allergy/AdvReac Type Severity Reaction Status Date / Time No Known Allergies Allergy Verified 03/24/24 10:10 [facility] ED PFS: Medical History (Updated 03/24/24 @ 12:11 by ALEXANDRA Chaidez) Aortic insufficiency Mitral regurgitation Ascending aortic aneurysm Sarcoidosis HTN (hypertension) Surgical History History of lung biopsy Social History Smoking and tobacco/nicotine status: never used tobacco/nicotine Alcohol intake: never Substance/Drug Use: never Lives independently: Yes Household members: spouse Marital status: Course Vital Signs: Vital signs: Vital Signs Temperature 97.5 F L 05/27/25 04:29 Pulse Rate 46 L 05/27/25 04:49 Respiratory Rate 18 05/27/25 04:29 Blood Pressure 141/82 05/27/25 04:49 Pulse Oximetry 96 05/27/25 04:49 Oxygen Delivery Me thod Room Air 05/27/25 04:29 MDM - Chest Pain Lab Data 05/27/25 04:34 05/27/25 04:34 Laboratory Results WBC 6.10 10^3/uL (3.29-11.43) 05/27/25 04:34 RBC 4.20 10^6/uL (3.85-5.65) 05/27/25 04:34 Hgb 13.00 g/dL (11.27-16.99) 05/27/25 04:34 Hct 38.8 % (37-53) 05/27/25 04:34 MCV 92.4 fl (82-101) 05/27/25 04:34 MCH 31.0 pg (27-33) 05/27/25 04:34 MCHC 33.5 g/dL (30-55) 05/27/25 04:34 RDW 12.8 % (12.1-15.1) 05/27/25 04:34 Plt Count 151 10^3/cmm (157-399) L 05/27/25 04:34 MPV 10.0 fL (7.4-10.4) 05/27/25 04:34 Neut % (Auto) 55.4 % 05/27/25 04:34 Lymph % (Auto) 29.3 % 05/27/25 04:34 [place] % (Auto) 11.6 % 05/27/25 04:34 Eos % (Auto) 3.0 % 05/27/25 04:34 Baso % (Auto) 0.5 % 05/27/25 04:34 Neut # (Auto) 3.38 10^3/uL (1.8-7.7) 05/27/25 04:34 Lymph # (Auto) 1.8 10^3/uL (0.8-4.8) 05/27/25 04:34 [place] # (Auto) 0.7 10^3/uL (0.2-0.9) 05/27/25 04:34 Eos # (Auto) 0.2 10^3/uL (0.0-0.8) 05/27/25 04:34 Baso # (Auto) 0.0 10^3/uL (0.0-0.1) 05/27/25 04:34 Nucleated RBC % (auto) 0 % 05/27/25 04:34 Nucleated RBCs # 0.0 /100WBC 05/27/25 04:34 Lactic Acid 0.7 mmol/L (0.5-2.2) 05/27/25 04:34 Troponin T Baseline 17 ng/L (0-15) H 05/27/25 04:34 Discharge Plan Discharge Condition: Stable Prescriptions: No Action aspirin 81 mg tablet,delayed release (DR/EC) 81 mg PO DAILY atorvastatin 40 mg tablet 40 mg PO BEDTIME@2100 pantoprazole 40 mg tablet,delayed release (DR/EC) 40 mg PO DAILY@08 paroxetine HCl 10 mg Tablet 10 mg PO DAILY albuterol sulfate 90 mcg/actuation Hfa Aerosol Inhaler 1 inh INHALATION QID PRN (Reason: Shortness Of Breath) losartan 25 mg tablet 25 mg PO DAILY Referrals: Rick Mcgill MD [Primary Care Provider, Family Practice] Print Language: Cypriot Coding Level of Care Code ED Apparel Trimmings Sales Representative for Ioana Humphreys
[2025-05-27 05:26] LABS: Alanine Aminotransferase 13 U/L (0-41); Albumin Level 4.0 g/dL (3.5-5.2); Alkaline Phosphatase 57 U/L (40-130); Aspartate Amino Transferase 19 U/L (0-40); Blood Urea Nitrogen 15 mg/dL (8-23); CRP High Sensitivity Cardiac 0.280 mg/dL (0.0-0.3); Calcium 9.5 mg/dL (8.5-10.5); Carbon Dioxide 25 mmol/L (22-29); Chloride 107 mmol/L (98-107); Creatinine Clr Calc Pharmacy 58.9968; Globulin 2.3 g/dL (1.3-4.6); Glucose 143 mg/dL (65-115); Magnesium 2.1 mg/dL (1.7-2.3); NT Pro B Type Natriuretic Pept 192 pg/mL (0-450); Osmolality Calculated 293 mOsm/kg (285-295); Sodium 140 mmol/L (136-145); Thyroid Stimulating Hormone 2.54 uIU/mL (0.27-4.20); Total Protein 6.3 g/dL (6.6-8.7)
[2025-05-27 05:28] LABS: Anion Gap 11.7 (5-19); Potassium 3.7 mmol/L (3.5-5.1)
--- NOTE | 2025-05-27 06:32 | P.HP_ITS ---
Providers/Chief Complaint 2 Admitting Physician: Phoebe Neville MD--- patient admitted after 12 midnight at 6 AM Primary Care Provider: Rick Mcgill MD Chief Complaint: Disoriented, CP History of Present Illness Ant De La Paz is a 79 year old male very nice gentleman at the bedside in the emergency room in for evaluation for the events that happened this morning. Patient does not have any history of myocardial infarction CAD had never had any history of apparent chest pains but does have a history of hyperlipidemia and high blood pressure that seem to be controlled on medication. Patient presented with symptomatic bradycardia after woken up from sleep patient heart rate was high in the 130s patient got diaphoretic with cold sweats at home. It was been noted that when patient was tachycardic at home, he had an associated chest pain all across the chest wall anteriorly Patient came to the emergency room for further evaluation at the emergency room patient heart rate was in the 30s and 40s and then to the 20s in the emergency room. In the emergency room patient had experienced 5 beats of V. tach. 1 mg of atropine was given the heart rate went from 30 bpm to 90 bpm and then down to the 60s converted to a sinus rhythm in the 60s I have spoken with Dr. Shepherd and also had consulted him he said bring the patient in and they will evaluate patient and go from there. Must also be noted that this patient had had this event a year ago and went to [place] to Dr. Newman patient's cardiology and they did an echocardiogram and found that patient had mitral regurgitation that was not enough to be fixed according to the family and that they were told to follow-up the first week of May at [facility]. This family had also mentioned or expressed the thought of doing something if there is any it would be in [facility]. Dr. Shepherd felt the patient ought to be evaluated for pacemaker. What happened to him at home leading to him coming to the emergency room having also heart rate in the in the 20s and responding to 1 mg of atropine now sinus rhythm in the 60s. The event is alarming and life threatening Review of Systems 2 Narrative: System review upon 10 organ system review is significant for cardiovascular system with V. tach bradycardia chest pains and then sinus rhythm after a push of atropine Medications/Allergies Home Medications ?Medication ?Instructions ?Recorded ?Confirmed ?Last Taken ?Type atorvastatin 40 mg tablet 40 mg PO BEDTIME@2100 03/24/24 02/28/23 History pantoprazole 40 mg tablet,delayed 40 mg PO DAILY@08 03/24/24 02/28/23 History release albuterol sulfate 90 mcg/actuation 1 inh inhalation QI D PRN Shortness 06/11/22 03/24/24 Unknown History aerosol inhaler Of Breath paroxetine HCl 10 mg tablet 10 mg PO DAILY 06/11/2202/28/23 History losartan 25 mg tablet 25 mg PO DAILY 03/01/2302/2702/28/23 History aspirin 81 mg tablet,delayed 81 mg PO DAILY 08/20/23 0 03/24/24 Unknown History release Allergies Allergy/AdvReac Type Severity Reaction Status Date / Time No Known Allergies Allergy Verified 03/24/24 10:10 PFSH Acute 2 PFSH: Medical History Aortic insufficiency Mitral regurgitation Ascending aortic aneurysm Sarcoidosis HTN (hypertension) Surgical History History of lung biopsy Social History Smoking and tobacco/nicotine status: never used tobacco/nicotine Alcohol intake: never Substance/Drug Use: never Lives independently: Yes Household members: spouse Marital status: Vitals/I&O/Wt Last Vital Signs Temp 97.5 F L 05/27/25 04:29 Pulse 63 05/27/25 06:10 Resp 18 05/27/25 04:29 BP 147/85 05/27/25 06:10 Pulse Ox 97 05/27/25 06:10 O2 Del Method Room Air 05/27/25 06:10 Weight last 48 hrs Weight 68.039 kg Physical Exam 2 Narrative: General the patient is sitting concerned very hard of hearing talks and does all the talking and relating to him He is pretty much awake alert oriented x 3 here in the emergency room very just hard of hearing HEENT normocephalic atraumatic neck neck is supple cardiovascular heart rate is regular lungs are pretty much clear abdomen soft nontender nondistended unremarkable extremities are intact no edema has good pulses neurology has no focality lab studies lab studies reviewed and noted. Data 05/27/25 04:34 05/27/25 04:34 A&P Assessment and plan 1. Symptomatic bradycardia: 2. Tachy-zuleyma syndrome: 3. Chest pain: 4. Aortic insufficiency: 5. Mitral regurgitation: 6. Ascending aortic aneurysm: 7. Sarcoidosis: 8. HTN (hypertension): Plan: Symptomatic bradycardia/tacky bradycardia syndrome with second and third- degree heart block associated with chest pain and 5 beats of VT all in the emergency room - Admit patient to stepdown unit with telemetry - Place atropine by the bedside ready to use for heart rate in the 40s and with pacer by the bedside - Cardiology Dr. Shepherd has been consulted and case has been fully discussed as per in my H&P above - Patient is an ED hold if he has no bed yet in the stepdown - Patient could be an ICU as stepdown overflow if need be - Echocardiogram has been ordered cardiology will follow through with this patient - Will hope that family will stay for the patient to be reevaluated here and understand with forward - If patient ever wanted to leave wants to leave with event recorder to follow- up with the on cardiology if need be - Follow-up with Dr. Renee's recommendation and optimize and continue to inform family so they will understand. Chronic medical histories such as - Pulmonary sarcoidosis with baseline shortness of breath/hypertension/hyperlipidemia *Patient to continue with care of home medication for any chronic illness PDMP PDMP Reviewed: Last Reviewed 05/27/25 06:45 by Phoebe Nevilel MD Attestations 2 Medical Necessity Statement*: Tachybradycardia syndrome very risky and life-threatening allow patient 23 hours stay at least to be evaluated by cardiology Coding Level of Care Code 29637 Diagnoses Symptomatic bradycardia R00.1 Tachy-zuleyma syndrome I49.5 Chest pain R07.9 Aortic insufficiency I35.1 Mitral regurgitation I34.0 Ascending aortic aneurysm I71.21 Sarcoidosis D86.9 HTN (hypertension) I10 Time Spent (min) 60
[2025-05-27 06:49] LABS: Magnesium 2.8 mg/dL (1.7-2.3)
[2025-05-27 06:50] LABS: Troponin 5 2HR 17.95 ng/L (0-15); Troponin 5 2HR Delta 0.95 ABS# (0-10)
--- OUTSIDE RECORDS SUMMARY | 2025-05-27 07:57 | XMS_ITS | Encounter Summary ---
Author Organization [facility] Address [address] [place] [address] Care Team Providers Care Day Haul Youth Supervisor Name Role Phone Nanette Ohara MD, Hugh Manning Primary Care Provider Encounter Details Date Type Department Care Team (Late st Contact Info) Description 05/16/2006 Outpatient Historical [facility] Dermatology- 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
--- OUTSIDE RECORDS SUMMARY | 2025-05-27 07:57 | XMS_ITS | Clinical Summary ---
[facility] Address [address] [place] [address] Care Team Providers Care Telephone Information Supervisor Name Role Phone Nanette Ohara MD, [...] on file Legal Sex Male 4:48 AM MEDICAL IMAGING TECH Gender Identity Not on file Sexual Orientation Not on file Occupation Industry Job Start Date Job End Date Not on file Not on file Not on file Not on file Last Filed Vital Signs Vital Sign Reading Time Taken Comments Blood Pressure 108/67 07/06/2016 11:49 PM MEDICAL IMAGING TECH Pulse 64 03/18/2014 10:45 AM CDT Temperature 36.9 C (98.5 F) 07/06/2016 5:31 PM MEDICAL IMAGING TECH Respiratory Rate 16 07/06/2016 11:49 PM MEDICAL IMAGING TECH Oxygen Saturation 96% 07/06/2016 11:49 PM MEDICAL IMAGING TECH Inhaled Oxygen Concentration - - Weight 72.6 kg (160 lb) 07/06/2016 3:51 PM MEDICAL IMAGING TECH Height 175.3 cm (5' 9 ) 07/06/2016 3:51 PM MEDICAL IMAGING TECH Body Mass Index 23.63 07/06/2016 3:51 PM MEDICAL IMAGING TECH Plan of Treatment Health Maintenance Due Date Last Done Comments PNEUMOCOCCAL VACCINE 50+ YEARS (1 of 1 - PCV) 10/14/18 96 ZOSTER VACCINE (1 of 2) 10/15/1995 DTAP/TDAP/TD VACCINES (1 - Tdap) 02/27/2002 02/27/20 02 RSV VACCINE (60+ or ) (1 - 1-dose 75+ series) 2020 INFLUENZA VACCINE (#1) 2025 Insurance MEDICARE PART A AND B [facility] [place] [address] [place] [address] DEEDEE GUILLAUME [id number] Care Teams Telephone Information Supervisor Relationship Specialty Start Date End Date Hugh Fitzpatrick Jr., MD [address] [address] PCP - General Family Practice 07/06/16
--- OUTSIDE RECORDS SUMMARY | 2025-05-27 07:57 | XMS_ITS | Encounter Summary ---
Author Organization [facility] Address [address] [place] [address] Care Team Providers Care Cleaning Crew Member Name Role Phone Nanette Ohara MD, Hugh [...] on file Legal Sex Male 8:27 AM HOME HEALTH MANAGER Gender Identity Not on file Sexual Orientation Not on file documented as of this encounter Plan of Treatment Upcoming Encounters Date Type Department Care Team (Late st Contact Info) Description 07/06/2025 2:20 PM HOME HEALTH MANAGER Office Visit [facility] [address] [place] [phone] Dahiana Huddleston NP [address] [place] [phone] documented as of this encounter Visit Diagnoses Not on filedocumented in this encounter Care Teams Cleaning Crew Member Relationship Specialty Start Date End Date Hugh Fitzpatrick Jr., MD [address] [address] PCP - General Family Practice 07/06/16 documented as of this encounter
--- OUTSIDE RECORDS SUMMARY | 2025-05-27 07:57 | XMS_ITS | Clinical Summary ---
Author Organization [facility] Address [address] [facility] Attn: [place] [address] Care Team Providers Care Exhaust Emissions Automotive Technician Name Role Phone Nanette Ohara MD, Hugh [...] mg by mouth daily. 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 DRIVER Gender Identity Not on file Sexual Orientation [...] st Contact Info) Description 07/06/2025 2:20 PM SKIDDER DRIVER Office Visit [facility] [address] [facility] [address] [place] [address] Flaquito Dahiana Thurmane, EZE [address] [facility] [address] [place] [address] Health Maintenance Due Date Last [...] Q 5 years Discontinued Insurance Care Teams Exhaust Emissions Automotive Technician Relationship Specialty Start Date End Date Hugh Fitzpatrick Jr., MD [address] [address] PCP - General Family Practice 07/06/16
[2025-05-27] MEDS: heparin 5,000 unit/mL INJ 1 mL 5000 UNIT SUBCUT (08:19)
--- NOTE | 2025-05-27 10:36 | P.CONIM_ITS ---
<Statement entered by Miko Shepherd MD - 05/31/25 19:40> Patient was evaluated and cared for in conjunction with an advanced practice practitioner. I personally examined the patient and reviewed the chart and all pertinent data including imaging, telemetry, and laboratory results. I discussed the patient in detail with the advanced practice practitioner. Please see their note for complete H&P testing result and agreed upon plan of care for the patient Providers/Reason For Consult 2 Consulting Physician/Specialty*: Dr Dominick Shepherd, interventional cardiology Reason for Consult*: symptomatic bradycardia Attending Physician: Jann Hood MD Primary Care Provider: Rick Mcgill MD History of Present Illness History of Present Illness Ant De La Paz is a 79 year old male with past medical history of ascending aortic aneurysm, mitral and aortic insufficiency, sarcoidosis, hypertension. He presented to the emergency room this morning with symptoms of rapid heart rate and diaphoresis that woke him from sleep. His brought him to the emergency room, where he developed sinus bradycardia into the 20 to 30bpm range, was symptomatic and received treatment with atropine. This improved his heart rate into the 60s, still sinus. He has a history of SVT as well, evidenced on event monitor in 2022. He has no history of atrial fibrillation. He sees cardiology Dr. Newman at [facility] in [place]. He has not been on any AV anand linda or antiarrhythmic, no electrolyte abnormalities. Echocardiogram in 2023 showed LVEF 60%, severe MR, mild AR. He has been pursuing workup with Dr. Newman, had a cardiac MRI done at [facility] recently due to the sarcoidosis history. He is in sinus rhythm, heart rates currently ranging from lower 40s to 60 bpm. Blood pressure in the 150s systolic. Review of Systems 2 Const: Reports: diaphoresis (with rapid heart rate); Denies: fever(s), chills, change in weight or fatigue Eyes: Denies: change in vision ENMT: Denies: epistaxis Card: Reports: palpitations and irregular heart rhythm; Denies: chest pain, edema, syncope, pre-syncope, dyspnea on exertion, orthopnea or leg pain with exertion Resp: Denies: dyspnea, productive cough or wheezing GI: Denies: nausea, vomiting, hematemesis, hematochezia or melena : Denies: hematuria Musc: Denies: extremity swelling Binu/Lymph: Denies: easy bruising or easy bleeding Medications/Allergies Home Medications ?Medication ?Instructions ?Recorded ?Confirmed ?Last Taken ?Type pantoprazole 40 mg tablet,delayed 40 mg PO DAILY@08 05/27/25 05/26/25 History release paroxetine HCl 10 mg tablet 10 mg PO QPM 06/11/2204/3005/26/25 History aspirin 81 mg tablet,delayed 81 mg PO DAILY 08/20/23 1 05/26/25 History release budesonide 160 mcg-glycopyr 9 2 inh inhalation BID 05/27/25 05/26/25 History mcg-formot 4.8 mcg/actuation HFA inhaler (Breztri Aerosphere) donepezil 10 mg tablet 10 mg PO DAILY 05/27/2504/3005/26/25 History losartan 50 mg tablet 50 mg PO BID 05/27/2505/26/25 History prednisolone acetate 1 % eye See Rx Instructions .Rout e .COMPLEX 05/27/25 05/27/25 Unknown History drops,suspension rosuvastatin 40 mg tablet 40 mg PO DAILY 05/27/2504/3005/26/25 History Allergies Allergy/AdvReac Type Severity Reaction Status Date / Time No Known Allergies Allergy Verified 03/24/24 10:10 Current Medications Generic Name Dose Route Start Last Admin Trade Name Freq PRN Reason Stop Dose Admin Heparin Sodium (Porcine) 5,000 unit 05/27/25 06:30 05/27/25 08:19 Heparin 5,000 Unit/Ml Inj 1 Ml SUBCUT 5,000 unit Q8H MARCUS Administration Sodium Chloride 1,000 mls @ 75 mls/hr 05/27/25 06:30 05/27/25 08:19 Sodium Chloride 0.9% IV 75 mls/hr .[id number] MARCUS Administration PFSH Acute 2 PFSH: Medical History Aortic insufficiency Mitral regurgitation Ascending aortic aneurysm Sarcoidosis HTN (hypertension) Surgical History History of lung biopsy Social History (Reviewed 05/27/25 @ 10:37 by GERMANIA Chaidez Smoking and tobacco/nicotine status: never used tobacco/nicotine Alcohol intake: never Substance/Drug Use: never Lives independently: Yes Household members: spouse Marital status: Vitals/I&O/Wt Last Vital Signs Temp 98.6 F 05/27/25 09:07 Pulse 58 L 05/27/25 09:07 Resp 18 05/27/25 09:07 BP 152/82 05/27/25 09:07 Pulse Ox 97 05/27/25 09:07 O2 Del Method Room Air 05/27/25 09:08 05/26/25 05/27/25 05/27/25 22:59 06:59 14:59 Intake Total 50 / 50 Balance 50 / 50 Weight last 48 hrs Weight 150 lb Weight 150 lb Physical Exam 2 Const: COMMON NORMALS: no acute distress and patient oriented x3 GENERAL APPEARANCE: cooperative and comfortable ORIENTATION/CONSCIOUSNESS: Yes awake, Yes oriented to person, Yes oriented to place and Yes oriented to time Chest: COMMONS NORMALS: normal inspection of the chest and normal palpation of entire chest wall CHEST: Yes Symmetrical chest wall rise Resp: COMMON NORMALS: normal respiratory effort, No retractions, No use of accessory muscles and clear to auscultation bilaterally EFFORT & INSPECTION: Yes symmetric chest movement AUSCULTATION: clear to auscultation bilaterally Cardio: COMMON NORMALS: regular rate, regular rhythm, S1 normal heart sound present, S2 normal heart sound present, No gallops present (Cardio), No clicks present (Cardio), No murmurs present (Cardio) and No rub (Cardio) RATE: r egular rate RHYTHM: regular rhythm HEART SOUNDS: S1 normal heart sound present and S2 normal heart sound present PERIPHERAL PULSES: radial pulses present Extremity: COMMON NORMALS: no pedal edema Neuro: COMMON NORMALS: patient oriented x3 and moves all extremities S ENSORIUM/ORIENTATION: Yes oriented to person, Yes oriented to place and Yes oriented to time Data 05/27/25 04:34 05/27/25 04:34 A&P Assessment and plan 1. Tachy-zuleyma syndrome: 2. Symptomatic bradycardia: 3. Ascending aortic aneurysm: 4. Sarcoidosis: Plan: He is not on any rate limiting medications or antiarrhythmic. Electrolytes normal. He is not orthostatic or dizzy on standing. Telemetry shows bradycardia in the 40's intermittently while awake and he is symptomatic. Since he desires transfer to [facility] for pacemaker and any workup, will arrange with hospitalist service. He is stable for transport via ambulance, does not require a temporary transvenous pacemaker at this time. If he develops persistent symptomatic bradycardia in the 30s we can initiate dopamine infusion. PDMP PDMP Reviewed: Not Reviewed Coding Level of Care Code Acute Code for g Fwd Diagnoses Tachy-zuleyma syndrome I49.5 Symptomatic bradycardia R00.1 Ascending aortic aneurysm I71.21 Sarcoidosis D86.9
[2025-05-27 10:52] LABS: Troponin 5 6HR 19.68 ng/L (0-15); Troponin 5 6HR Delta 2.68 ng/L (0-12)
--- NOTE | 2025-05-27 11:06 | ECG_ITS ---
[facility] Date: 2025-05-27 Pat Name: Ant De La Paz Department: Room: 101 Gender: Male Administrative Processor: : 1945 Requested By: Hugo Cheung Order Number: [id number] Reading MD: KASSIE TEMPLETON Measurements Intervals [place] Rate: 53 P: 67 MI: 200 QRS: 54 QRSD: 91 T: 62 QT: 450 QTc: 426 Interpretive Statements SINUS BRADYCARDIA POSSIBLE LEFT ATRIAL ENLARGEMENT [-0.1mV P-WAVE IN V1/V2] POSSIBLE RIGHT VENTRICULAR CONDUCTION DELAY [RSR (QR) IN V1/V2] POSSIBLE LEFT VENTRICULAR HYPERTROPHY [VOLTAGE CRITERIA PLUS LAE OR QRS WIDENING] Compared to ECG 05/27/2025 05:24:50 Atrial fibrillation no longer present Electronically Signed On 05-29-2025 21:18:15 CDT by KASSIE TEMPLETON [email or web address]
--- NOTE | 2025-05-27 14:35 | PM.TDS ---
Transfer Summary Providers Date of Admission: 05/27/25 06:00 Date of Discharge/Transfer: 05/27/25 Attending Provider at Admission: Phoebe Neville MD Attending Provider at Transfer: Jann Hood MD Primary Care Provider: Rick Mcgill MD Transfer Plans: Anticipated date of transfer: 05/27/25. Diagnoses at Discharge Discharge Diagnosis 1. Tachy-zuleyma syndrome: 2. Symptomatic bradycardia: 3. Ascending aortic aneurysm: 4. Sarcoidosis: Reason for Visit Reason for Visit Disoriented, CP Brief History: As per the previous notes and the patient/family: Ant De La Paz is a 79 year old male with past medical history of ascending aortic aneurysm, mitral and aortic insufficiency, sarcoidosis, hypertension. He presented to the emergency room this morning with symptoms of rapid heart rate and diaphoresis that woke him from sleep. His brought him to the emergency room, where he developed sinus bradycardia into the 20 to 30bpm range, was symptomatic and received treatment with atropine. This improved his heart rate into the 60s, still sinus. He has a history of SVT as well, evidenced on event monitor in 2022. He has no history of atrial fibrillation. He sees cardiology Dr. Newman at [facility] in [place]. He has not been on any AV anand linda or antiarrhythmic, no electrolyte abnormalities. Echocardiogram in 2023 showed LVEF 60%, severe MR, mild AR. He has been pursuing workup with Dr. Newman, had a cardiac MRI done at [facility] recently due to the sarcoidosis history. He is in sinus rhythm, heart rates currently ranging from lower 40s to 60 bpm. Blood pressure in the 150s systolic. Hospital Course Hospital Course Patient was admitted to cardiac stepdown unit with telemetry monitoring. The patient heart rate fluctuates between 40s late 50s and sometimes goes to 60s and 70s. The patient also reported with his low heart rate he was kind of dizzy and then the family reported that he was also confused. He did not report any chest pain, chest pressure, shortness of breath, new lower leg swellings or any other symptoms. The patient is known to have sarcoidosis and also reported that he had cardiac MRI and following with Dr. Newman in [facility]. Cardiology was consulted. And further plan was discussed that based on patient preference the patient to be transferred to [facility] since he is following with Dr. Newman and the need of her pacemaker and further adjustment to be made there. Transfer center was called and the patient is accepted for transfer under . Patient condition has been discussed at length with the patient/family, I have independently reviewed the chart labs imaging/diagnostics/EKG. the goals of care and code status with the patient/family/NOK/legal employer relations representative, and documented accordingly. The management has been done according to the current clinical condition with respect to patient goals of care and based on recommendations/guidelines. The patient/family has been informed about the current condition and further plan of care. Agreed with the plan of care and understood without any language barrier. Every effort was made to ensure accuracy of outside sales account executive. Any obvious errors or omissions should be clarified with the author of the document. Physical Exam Narrative: General: Alert and oriented, lying comfortably without any distress HEENT: Normocephalic, atraumatic, grossly unremarkable exam Cardio: Sinus bradycardia, normal S1-S2 without any murmurs, rubs, or gallops and JVD normal Respiratory: normal vascular breathing on auscultation without any wheezes, stridor, rhonchi GI: Abdomen soft, nontender, nondistended, normoactive bowel sounds present all 4 quadrants, Neuro: intact cranial nerves motor and sensory and cerebellar/coordination function without any focal neurological deficit Behavior: Appropriate and cooperative Extremities: Adequate palpable pulses, no edema or cyanosis observed. TS Data Studies Completed and Pending Pending at discharge Category Date Time Status Complete Blood Count w/Auto AM LABS Lab 05/28/25 04:00 Ordered Comprehensive Metabolic Panel AM LABS Lab 05/28/25 04:00 Ordered Magnesium AM LABS Lab 05/28/25 04:00 Ordered Phosphorus AM LABS Lab 05/28/25 04:00 Ordered CV. echo complete* [id number] Routine Ultrasound 05/27/25 06:27 Ordered Completed Studies During Hospitalization Category Date Time Status CXRP [XR chest 1V portable [id number]] Stat Exams 05/27/25 04:49 Completed Laboratory Last Values WBC 6.10 10^3/uL (3.29-11.43) 05/27/25 04:34 RBC 4.20 10^6/uL (3.85-5.65) 05/27/25 04:34 Hgb 13.00 g/dL (11.27-16.99) 05/27/25 04:34 Hct 38.8 % (37-53) 05/27/25 04:34 MCV 92.4 fl (82-101) 05/27/25 04:34 MCH 31.0 pg (27-33) 05/27/25 04:34 MCHC 33.5 g/dL (30-55) 05/27/25 04:34 RDW 12.8 % (12.1-15.1) 05/27/25 04:34 Plt Count 151 10^3/cmm (157-399) L 05/27/25 04:34 MPV 10.0 fL (7.4-10.4) 05/27/25 04:34 Neut % (Auto) 55.4 % 05/27/25 04:34 Lymph % (Auto) 29.3 % 05/27/25 04:34 [place] % (Auto) 11.6 % 05/27/25 04:34 Eos % (Auto) 3.0 % 05/27/25 04:34 Baso % (Auto) 0.5 % 05/27/25 04:34 Neut # (Auto) 3.38 10^3/uL (1.8-7.7) 05/27/25 04:34 Lymph # (Auto) 1.8 10^3/uL (0.8-4.8) 05/27/25 04:34 [place] # (Auto) 0.7 10^3/uL (0.2-0.9) 05/27/25 04:34 Eos # (Auto) 0.2 10^3/uL (0.0-0.8) 05/27/25 04:34 Baso # (Auto) 0.0 10^3/uL (0.0-0.1) 05/27/25 04:34 Nucleated RBC % (auto) 0 % 05/27/25 04:34 Nucleated RBCs # 0.0 /100WBC 05/27/25 04:34 Sodium 140 mmol/L (136-145) 05/27/25 04:34 Potassium 3.7 mmol/L (3.5-5.1) 05/27/25 04:34 Chloride 107 mmol/L (98-107) 05/27/25 04:34 Carbon Dioxide 25 mmol/L (22-29) 05/27/25 04:34 Anion Gap 11.7 (5-19) 05/27/25 04:34 BUN 15 mg/dL (8-23) 05/27/25 04:34 Creatinine 1.0 mg/dL (0.7-1.2) 05/27/25 04:34 GFR Calculation Not Reportable 05/27/25 04:34 Glucose 143 mg/dL (65-115) H 05/27/25 04:34 Calculated Osmolality 293 mOsm/kg (285-295) 05/27/25 04:34 Lactic Acid 0.7 mmol/L (0.5-2.2) 05/27/25 04:34 Calcium 9.5 mg/dL (8.5-10.5) 05/27/25 04:34 Phosphorus 2.9 mg/dL (2.5-4.5) 05/27/25 04:34 Magnesium 2.8 mg/dL (1.7-2.3) H 05/27/25 06:28 Total Bilirubin 0.6 mg/dL (0.15-1.2) 05/27/25 04:34 AST 19 U/L (0-40) 05/27/25 04:34 ALT 13 U/L (0-41) 05/27/25 04:34 Alkaline Phosphatase 57 U/L (40-130) 05/27/25 04:34 Troponin T Baseline 17 ng/L (0-15) H 05/27/25 04:34 Troponin T 120 Minute 17.95 ng/L (0-15) H 05/27/25 06:28 Delta Troponin T 0.95 ABS# (0-10) 05/27/25 06:28 Troponin T Hi Sens 6Hr 19.68 ng/L (0-15) H 05/27/25 10:28 Troponin T Hi Sens 6Hr Delta 2.68 ng/L (0-12) 05/27/25 10:28 C-React Prot High Sens 0.280 mg/dL (0.0-0.3) 05/27/25 04:34 NT-Pro-B Natriuret Pep 192 pg/mL (0-450) 05/27/25 04:34 Total Protein 6.3 g/dL (6.6-8.7) L 05/27/25 04:34 Albumin 4.0 g/dL (3.5-5.2) 05/27/25 04:34 Globulin 2.3 g/dL (1.3-4.6) 05/27/25 04:34 TSH 2.54 uIU/mL (0.27-4.20) 05/27/25 04:34 Radiology Impressions Chest X-Ray 05/27/25 04:49 IMPRESSION: No acute findings. Stable chronic findings. Recent Clincial Data Last Vital Signs Temp 98.6 F 05/27/25 09:07 Pulse 58 L 05/27/25 09:07 Resp 18 05/27/25 09:07 BP 152/82 05/27/25 09:07 Pulse Ox 97 05/27/25 09:07 O2 Del Method Room Air 05/27/25 09:08 Vital Signs Temp Pulse Resp BP Pulse Ox O2 Del Method 05/27/25 09:08 Room Air 05/27/25 09:07 98.6 F 58 L 18 152/82 97 05/27/25 07:29 59 L 95 05/27/25 06:30 62 153/82 94 Room Air 05/27/25 06:30 62 153/82 94 Room Air 05/27/25 06:10 63 147/85 97 Room Air 05/27/25 05:40 73 131/86 95 Room Air 05/27/25 05:30 75 112/84 95 Room Air 05/27/25 05:05 52 L 138/76 98 Room Air 05/27/25 04:49 46 L 141/82 96 05/27/25 04:29 97.5 F L 52 L 18 130/73 95 Room Air Intake & Output/Weight 05/25/25 05/26/25 05/27/25 05/28/25 06:59 06:59 06:59 06:59 Intake Total 50 / 50 Balance 50 / 50 Weight 68.039 kg 68.039 kg Vitals Last Vital Signs Temp 98.6 F 05/27/25 09:07 Pulse 58 L 05/27/25 09:07 Resp 18 05/27/25 09:07 BP 152/82 05/27/25 09:07 Pulse Ox 97 05/27/25 09:07 O2 Del Method Room Air 05/27/25 09:08 TS Medications Medications Acetaminophen (Acetaminophen 325 Mg Tablet) 650 mg PO Q6H PRN PRN Reason: Mild/Mod Pain Or Temp >/= 101 Aspirin (Aspirin 81 Mg Ec Tablet) 81 mg PO DAILY [facility] Atorvastatin Calcium (Atorvastatin 40 Mg Tablet) 80 mg PO DAILY [facility] Heparin Sodium (Porcine) (Heparin 5,000 Unit/Ml Inj 1 Ml) 5,000 unit SUBCUT Q8H [facility] Last Admin: 05/27/25 08:19 Dose: 5,000 unit Sodium Chloride (Sodium Chloride 0.9%) 1,000 mls @ 75 mls/hr IV .[id number] [facility] Last Admin: 05/27/25 08:19 Dose: 75 mls/hr Morphine Sulfate (Morphine 4 Mg/Ml Sdv 1 Ml) 4 mg IVP Q4H PRN PRN Reason: SEVERE PAIN Ondansetron HCl (Ondansetron 4 Mg Tablet) 4 mg PO Q8H PRN PRN Reason: NAUSEA Pantoprazole Sodium (Pantoprazole Dr 40 Mg Tablet) 40 mg PO DAILY [facility] Discontinued Medications Atropine Sulfate (Atropine 0.1 Mg/Ml Syr 10 Ml) 1 mg IVP ONCE ONE Stop: 05/27/25 05:13 Last Admin: 05/27/25 05:21 Dose: 1 mg Magnesium Sulfate (Magnesium Sulfate Premix) 2 gm in 50 mls @ 50 mls/hr IV ONCE ONE Stop: 05/27/25 05:50 Last Infusion: 05/27/25 06:48 Dose: Infused Allergies No Known Allergies Allergy (Verified 03/24/24 10:10) Home Medications pantoprazole 40 mg tablet,delayed release 40 mg PO DAILY@08 09/07/20 [History Confirmed 05/27/25] paroxetine HCl 10 mg tablet 10 mg PO QPM 06/11/22 [History Confirmed 05/27/25] aspirin 81 mg tablet,delayed release 81 mg PO DAILY 08/20/23 [History Confirmed 05/27/25] budesonide 160 mcg-glycopyr 9 mcg-formot 4.8 mcg/actuation HFA inhaler (Breztri Aerosphere) 2 inh inhalation BID 05/27/25 [History Confirmed 05/27/25] donepezil 10 mg tablet 10 mg PO DAILY 05/27/25 [History Confirmed 05/27/25] losartan 50 mg tablet 50 mg PO BID 05/27/25 [History Confirmed 05/27/25] prednisolone acetate 1 % eye drops,suspension See Rx Instructions .Route .COMPLEX 05/27/25 [History Confirmed 05/27/25] rosuvastatin 40 mg tablet 40 mg PO DAILY 05/27/25 [History Confirmed 05/27/25] Discharge Plan Discharge Patient Disposition: Xfer Other Condition: Stable Prescriptions: No Action aspirin 81 mg tablet,delayed release (DR/EC) 81 mg PO DAILY pantoprazole 40 mg tablet,delayed release (DR/EC) 40 mg PO DAILY@08 paroxetine HCl 10 mg Tablet 10 mg PO QPM losartan 50 mg tablet 50 mg PO BID donepezil 10 mg tablet 10 mg PO DAILY prednisolone acetate 1 % drops,suspension See Rx Instructions .ROUTE .COMPLEX Rx Instructions: Instill 1 drop into left eye four times a day start day of surgery and con't for 30 days rosuvastatin 40 mg tablet 40 mg PO DAILY Breztri Aerosphere 160-9-4.8 mcg/actuation HFA aerosol inhaler 2 inh INHALATION BID Staffing Assistant OK for DC: Cardiology Referrals: Rick Mcgill MD [Primary Care Provider, [facility]] Discharge Diet: Advance as tolerated, Usual diet and Cardiac Discharge Activity: Resume usual activity Patient Instructions: Opioid Safety, Patient Portal & Sheyla Instructions Transfer Attestations Time Spent in Transfer Care: greater than 30 min Specific Discharge Activities: educating patient, educating and/or supporting family/caregiver, discussing with pcp/other providers, discussing with heel caser/social workers/dc planners, documenting/other paperwork and evaluating patient/reviewing data Status at Transfer: Cognitive status at transfer: cognitively intact; Behavioral status at transfer: cooperative; Functional status at transfer: independent ambulation; Overall status at transfer: patient is not back to baseline Quality Metrics Clinical Quality Measures [ No reported AMI, CVA or VTE this stay] Coding Level of Care Code Acute Code for g Fwd Diagnoses Tachy-zuleyma syndrome I49.5 Symptomatic bradycardia R00.1 Ascending aortic aneurysm I71.21 Sarcoidosis D86.9
== END 2025-05-27 15:30 | disposition other institution (70) ==
LOC: ER 05:48 → CSU 07:29 → ER IP 07:38
PROVIDERS: Admitting Provider Internal Medicine; Emergency Provider Student in an Organized Health Care Education/Training Program; PCP Family Medicine; Visit Provider Student in an Organized Health Care Education/Training Program
DX: I49.5 Sick sinus syndrome (principal); R00.1 Bradycardia, unspecified; I71.21 Aneurysm of the ascending aorta, without rupture; D86.9 Sarcoidosis, unspecified; K21.9 Gastro-esophageal reflux disease without esophagitis; Z79.82 Long term (current) use of aspirin; I10 Essential (primary) hypertension
CPT/HCPCS: 36415; 71045; 80053; 83605; 83735; 83880; 84100; 84443; 84484; 85025; 86141; 93005; 93306; 96365; 96372; 96375; 99285; G0378; J0461; J1644; J3475; J7030